=== PATIENT | female | born 1945 | race Caucasian/White ===

== ENCOUNTER 2018-02-25 19:51 | Emergency (ER) | payer MEDICARE ==
[~2018-02-25] VITALS: Ht 160 cm; Wt 50.4 kg
[~2018-02-25 19:51] MED LIST: ALBUTEROL S2.5 MG/.5 IN; ALBUTEROL0.5 % IN; AMLODIPINE5 MG PO; AMOXICILLIN/CL875 MG PO; ANTIVERT12.5 MG PO; AUGMENTIN875TAB PO; BACLOFEN10 MG PO; BL ADULT ASA81 MG OR; BREO ELLIPTA 101 INH PO; CIPRO500 MG PO; CIPROFLOXACN500 MG PO; CLONIDINE0.1 MG OR; DEPO-MEDROL80 MG/ML IM; DOXYCYC MONO100 MG OR; DOXYCYCL HYC100 MG PO; FLEXERIL PO; FLEXERIL5 M1 PO; HYDROCHLOROT12.5 MG PO; HYDROCHLOROTH12.5 M1 PO; HYDROXYZ HCL25 MG PO; LISINOPRIL10 MG PO; LISINOPRIL20 MG; LISINOPRIL20 MG OR; LISINOPRIL40 MG PO; LISINOPRIL5 MG PO; LORTAB 10-325 M1 TAB PO; MEDDOSEPAK OR; MEDDOSEPAK PO; NAPROSYN500 MG PO; NAPROXEN500 MG PO; PHENERGAN12.5 MG/TA PO; PREDNISONE10 MG PO; PREDNISONE50 MG OR; PRIMATENE0.22 MG/A IN; PROAIR HFA IN; ROBITUSSIN AC10 ML PO; SPIRIVA IN; SYMBICORT1 AE1 IN; TORADOL PO; TRIAMCINOLON0.11 EX; TUDORZA PR400 MG/ACT IN; ULTRAM50 MG PO; VENTOLIN HF1 IN; WELLBUTRIN SR150 MG PO
[2018-02-25] MEDS ORDERED: LIPITOR20 M1 PO (20:23)
[2018-02-25] MEDS ORDERED: ALBUTEROL SUL0.083 % IN (20:24)
[2018-02-26] MEDS ORDERED: FLEXERIL PO (02:55)
[2018-02-26] MEDS ORDERED: LORTAB 1010 MG PO (02:55)
[2018-02-26 03:27] VITALS: BP 133/68
== END 2018-02-26 03:38 | disposition home or self-care (01) ==
LOC: ED 19:51
DX: M47.816 Spondylosis without myelopathy or radiculopathy, lumbar region (principal); M54.41 Lumbago with sciatica, right side; I10 Essential (primary) hypertension; I25.10 Atherosclerotic heart disease of native coronary artery without angina pectoris; F41.9 Anxiety disorder, unspecified; J44.9 Chronic obstructive pulmonary disease, unspecified; I25.2 Old myocardial infarction; Z99.81 Dependence on supplemental oxygen

== ENCOUNTER 2018-09-02 11:43 | Observation (INO) | payer MEDICARE ==
[~2018-09-02] VITALS: Ht 160 cm; Wt 51.1 kg
[~2018-09-02 11:43] MED LIST changes: +ALBUTEROL SUL0.083 % IN; +LIPITOR20 M1 PO; +LORTAB 1010 MG PO
[2018-09-02] MEDS ORDERED: ALENDRONATE SOD70 MG PO (11:56)
[2018-09-02 13:16] LABS: ALKALINE PHOSPHATASE 75 u/l (38-126); ANION GAP 15 (6-22 (CALC)); BILIRUBIN, TOTAL 0.8 mg/dL (0.0-1.4); BUN 11 mg/dL (8-23); BUN/CREATININE RATIO 15 (12-20 (CALC)); CARBON DIOXIDE 27 mmol/l (22-30); CHLORIDE 97 mmol/l (95-108); CREATININE 0.7 mg/dL (0.5-1.0); GFR > 60 ML/MIN (>=60 (CALC)); GFR FOR AFR.AMER. > 60 ML/MIN (>=60 (CALC)); POTASSIUM 3.9 mmol/l (3.5-5.1); SGOT/AST 23 u/l (9-36); SODIUM 135 mmol/l (137-146); TOTAL PROTEIN 7.5 g/dL (6.3-8.2)
[2018-09-02 13:29] LABS: IMMATURE GRANULOCYTES 0.6 % (0.0-5.0); MEAN CELL VOLUME 98.1 fL CALC (80.0-100.0); MEAN CORPUSCULAR HGB CONC 32.7 g/L CALC (32.0-36.0); NEUT# 4.34 thou/uL (2.00-7.15); RED BLOOD COUNT 4.15 mill/uL (4.20-5.60); RED CELL DISTRI WIDTH 13.2 % (11.5-15.5)
[2018-09-02 13:30] LABS: HEMATOCRIT 40.7 % (37.0-47.0); HEMOGLOBIN 13.3 g/dl (12.0-16.0)
[2018-09-02] MEDS ORDERED: WELLBUTRIN SR150 MG PO (16:38)
[2018-09-02] MEDS ORDERED: VITAMIN D31000 UNI1 PO (16:40)
[2018-09-02] MEDS ORDERED: POTASSIUM99 MG PO (16:43)
[2018-09-02] MEDS ORDERED: WOMENS MULTI PO (16:44)
[2018-09-02 18:10] VITALS: BP 168/84
[2018-09-02 20:00] VITALS: BP 179/85
[2018-09-03 04:37] VITALS: BP 156/74
[2018-09-03 05:15] LABS: HEMATOCRIT 37.3 % (37.0-47.0); HEMOGLOBIN 12.5 g/dl (12.0-16.0); IMMATURE GRANULOCYTES 0.4 % (0.0-5.0); MEAN CELL VOLUME 96.4 fL CALC (80.0-100.0); MEAN CORPUSCULAR HGB 32.3 pG CALC (26.0-32.0); MEAN CORPUSCULAR HGB CONC 33.5 g/L CALC (32.0-36.0); NEUT# 5.85 thou/uL (2.00-7.15); RED BLOOD COUNT 3.87 mill/uL (4.20-5.60); RED CELL DISTRI WIDTH 13.2 % (11.5-15.5)
[2018-09-03 05:42] LABS: ALBUMIN 4.6 g/dL (3.2-5.0); ALKALINE PHOSPHATASE 72 u/l (38-126); AMYLASE 57 u/l (30-110); ANION GAP 19 (6-22 (CALC)); BILIRUBIN, TOTAL 0.6 mg/dL (0.0-1.4); BUN 15 mg/dL (8-23); BUN/CREATININE RATIO 22 (12-20 (CALC)); CARBON DIOXIDE 22 mmol/l (22-30); CHLORIDE 97 mmol/l (95-108); CREATININE 0.7 mg/dL (0.5-1.0); GFR > 60 ML/MIN (>=60 (CALC)); GFR FOR AFR.AMER. > 60 ML/MIN (>=60 (CALC)); LIPASE 70 u/l (23-300); MAGNESIUM 1.8 mg/dL (1.6-2.3); POTASSIUM 4.3 mmol/l (3.5-5.1); SGOT/AST 19 u/l (9-36); SODIUM 134 mmol/l (137-146); TOTAL PROTEIN 6.6 g/dL (6.3-8.2)
[2018-09-03 07:27] VITALS: BP 177/70
[2018-09-03 07:36] VITALS: BP 177/70
[2018-09-03] MEDS ORDERED: DOXYCYCL HYC100 MG PO (14:36)
[2018-09-03] MEDS ORDERED: MEDDOSEPAK PO (14:36)
[2018-09-03] MEDS ORDERED: ALPRAZOLAM1 MG PO (16:31)
== END 2018-09-03 15:29 | disposition home or self-care (01) ==
LOC: ED 11:43 → ED-I 13:11 → ED 14:28 → MS2 14:29
PROVIDERS: Family Medicine; ADMIT Internal Medicine Nephrology; ATTEND Internal Medicine Nephrology
DX: J44.1 Chronic obstructive pulmonary disease with (acute) exacerbation (principal); I10 Essential (primary) hypertension; I25.10 Atherosclerotic heart disease of native coronary artery without angina pectoris; E78.5 Hyperlipidemia, unspecified; M81.0 Age-related osteoporosis without current pathological fracture; I25.2 Old myocardial infarction; Z99.81 Dependence on supplemental oxygen; Z63.4 Disappearance and death of family member; R06.02 Shortness of breath; R05 Cough

== ENCOUNTER 2019-03-11 11:54 | Emergency (ER) | payer MEDICARE ==
[~2019-03-11] VITALS: Ht 160 cm; Wt 49.1 kg
[~2019-03-11 11:54] MED LIST changes: +ALENDRONATE SOD70 MG PO; +ALPRAZOLAM1 MG PO; +POTASSIUM99 MG PO; +VITAMIN D31000 UNI1 PO; +WOMENS MULTI PO
[2019-03-11] MEDS ORDERED: TRAMADOL HYDROC50 MG PO (13:15)
[2019-03-11 13:22] VITALS: BP 119/65
== END 2019-03-11 13:37 | disposition home or self-care (01) ==
LOC: ED 11:54
DX: M54.6 Pain in thoracic spine (principal); I10 Essential (primary) hypertension; J44.9 Chronic obstructive pulmonary disease, unspecified; I25.10 Atherosclerotic heart disease of native coronary artery without angina pectoris; I25.2 Old myocardial infarction; Z99.81 Dependence on supplemental oxygen

== ENCOUNTER 2019-06-05 18:07 | Observation (INO) | payer MEDICARE ==
[~2019-06-05] VITALS: Ht 160 cm; Wt 47.8 kg
[~2019-06-05 18:07] MED LIST changes: +TRAMADOL HYDROC50 MG PO
[2019-06-05 18:54] LABS: HEMATOCRIT 37.3 % (37.0-47.0); HEMOGLOBIN 12.5 g/dl (12.0-16.0); IMMATURE GRANULOCYTES 0.9 % (0.0-5.0); MEAN CELL VOLUME 97.6 fL CALC (80.0-100.0); MEAN CORPUSCULAR HGB 32.7 pG CALC (26.0-32.0); MEAN CORPUSCULAR HGB CONC 33.5 g/L CALC (32.0-36.0); NEUT# 9.86 thou/uL (2.00-7.15); RED BLOOD COUNT 3.82 mill/uL (4.20-5.60); RED CELL DISTRI WIDTH 14.4 % (11.5-15.5)
[2019-06-05 19:18] LABS: ALBUMIN 4.5 g/dL (3.2-5.0); ALKALINE PHOSPHATASE 80 u/l (38-126); BUN 15 mg/dL (8-23); BUN/CREATININE RATIO 21 (12-20 (CALC)); CHLORIDE 97 mmol/l (95-108); CREATININE 0.7 mg/dL (0.5-1.0); GFR > 60 ML/MIN (>=60 (CALC)); GFR FOR AFR.AMER. > 60 ML/MIN (>=60 (CALC)); POTASSIUM 4.5 mmol/l (3.5-5.1); SGOT/AST 28 u/l (9-36); SODIUM 134 mmol/l (137-146); TOTAL PROTEIN 7.1 g/dL (6.3-8.2)
[2019-06-05 19:28] LABS: D-DIMER 0.59 mg/L (0.19-0.60); PROTHROMBIN TIME 10.2 SECONDS (9.0-12.5)
[2019-06-05 19:30] LABS: MYOGLOBIN 31 ng/mL (0 - 62)
[2019-06-05 19:43] LABS: ANION GAP 19 (6-22 (CALC)); BILIRUBIN, TOTAL 1.2 mg/dL (0.0-1.4); CARBON DIOXIDE 23 mmol/l (22-30)
[2019-06-05 22:00] VITALS: BP 162/95
[2019-06-06 04:16] VITALS: BP 122/74
[2019-06-06 07:20] VITALS: BP 126/62
[2019-06-06 10:23] LABS: URINE BILIRUBIN - DIPSTICK NEGATIVE (NEGATIVE); URINE BLOOD DIPSTICK NEGATIVE (NEGATIVE); URINE CLARITY CLEAR; URINE COLOR YELLOW; URINE GLUCOSE - DIPSTICK 250 mg/dL (NEGATIVE); URINE KETONE TRACE mg/dL (NEGATIVE); URINE LEUK ESTERASE NEGATIVE (Negative); URINE NITRITE - DIPSTICK NEGATIVE (Negative); URINE PH 5.5 (4.5-8.0); URINE PROTEIN - DIPSTICK NEGATIVE (NEG-TRACE); URINE SPECIFIC GRAVITY 1.025; URINE UROBILINOGEN - DIPSTICK 0.2 E.U./dL (0.2)
[2019-06-06 15:25] VITALS: BP 145/68
[2019-06-06 19:33] VITALS: BP 138/77
[2019-06-07 04:45] VITALS: BP 136/81
[2019-06-07 07:08] VITALS: BP 133/68
[2019-06-07 08:52] VITALS: BP 133/68
[2019-06-07] MEDS ORDERED: LEVAQUIN750 MG PO (09:03)
[2019-06-07] MEDS ORDERED: MEDDOSEPAK PO (09:03)
[2019-06-07] MEDS ORDERED: TRAMADOL HCL50 MG PO (09:04)
== END 2019-06-07 09:04 | disposition home or self-care (01) ==
LOC: ED 18:07 → MS2 20:41
PROVIDERS: Family Medicine; ADMIT Internal Medicine; ATTEND Internal Medicine
DX: J18.9 Pneumonia, unspecified organism (principal); J44.0 Chronic obstructive pulmonary disease with (acute) lower respiratory infection; J44.1 Chronic obstructive pulmonary disease with (acute) exacerbation; J96.10 Chronic respiratory failure, unspecified whether with hypoxia or hypercapnia; M94.0 Chondrocostal junction syndrome [Tietze]; I10 Essential (primary) hypertension; I25.10 Atherosclerotic heart disease of native coronary artery without angina pectoris; M80.88XD Other osteoporosis with current pathological fracture, vertebra(e), subsequent encounter for fracture with routine healing; E78.5 Hyperlipidemia, unspecified; F41.9 Anxiety disorder, unspecified; I25.2 Old myocardial infarction; Z99.81 Dependence on supplemental oxygen; Z23 Encounter for immunization; Z87.891 Personal history of nicotine dependence
CPT/HCPCS: G0378; J0131; J1650

== ENCOUNTER 2020-06-13 13:16 | Inpatient (IN) | payer MEDICARE ==
[~2020-06-13] VITALS: Ht 160 cm; Wt 47.0 kg
[~2020-06-13 13:16] MED LIST changes: +LEVAQUIN750 MG PO; +TRAMADOL HCL50 MG PO
--- NOTE | 2020-06-13 13:26 | NUR ---
[facility] LITERS PATIENT OXYGEN DEPENDENT. PATIENT EXPLAINED OF WAIT TIME AND IF CONDITIONS WORSENS PLEASE INFORM US. PATIENT VERBALIZED UNDERSTANDING OF INSTRUCTIONS. MD NOTIFIED
--- NOTE | 2020-06-13 13:45 | NUR ---
PT TO ROOM VIA WC FOR BEDSIDE TRIAGE
[2020-06-13] MEDS ORDERED: SLOW-MAG PO (14:33)
[2020-06-13] MEDS ORDERED: HYDROCHLOROT12.5 MG PO (14:33)
[2020-06-13] MEDS ORDERED: VITAMIN C500 M6 PO (14:34)
[2020-06-13 14:35] LABS: IMMATURE GRANULOCYTES 1.1 % (0.0-5.0); MEAN CELL VOLUME 99.2 fL CALC (80.0-100.0); MEAN CORPUSCULAR HGB 31.9 pG CALC (26.0-32.0); MEAN CORPUSCULAR HGB CONC 32.1 g/dL CAL (32.0-36.0); NEUT# 10.18 thou/uL (2.00-7.15); RED BLOOD COUNT 4.74 mill/uL (4.20-5.60)
--- NOTE | 2020-06-13 14:39 | NUR ---
MEDICATIONS ADMINSTERED PT WITHOUT COMPLAINTS
[2020-06-13 14:46] LABS: HEMOGLOBIN 15.1 g/dl (12.0-16.0)
[2020-06-13 14:49] LABS: ALBUMIN 4.1 g/dL (3.2-5.0); ALKALINE PHOSPHATASE 85 u/l (38-126); ANION GAP 9 (6-22 (CALC)); BILIRUBIN, TOTAL 0.8 mg/dL (0.0-1.4); BUN 21 mg/dL (8-23); BUN/CREATININE RATIO 33 (12-20 (CALC)); CARBON DIOXIDE 33 mmol/l (22-30); CHLORIDE 102 mmol/l (95-108); CREATININE 0.6 mg/dL (0.5-1.0); GFR > 60 ML/MIN (>=60 (CALC)); GFR FOR AFR.AMER. > 60 ML/MIN (>=60 (CALC)); POTASSIUM 4.2 mmol/l (3.5-5.1); SGOT/AST 28 u/l (9-36); TOTAL PROTEIN 6.4 g/dL (6.3-8.2)
[2020-06-13 14:55] LABS: SODIUM 140 mmol/l (137-146)
--- NOTE | 2020-06-13 15:19 | NUR ---
PT HAS WITH EVIDENCE OF ACUTE DISTRESS
--- NOTE | 2020-06-13 16:32 | NUR ---
AWAITING RESULTS WITHOUT DISTRESS
--- NOTE | 2020-06-13 17:50 | NUR ---
PT GIVEN TORADOL FOR RIB PAIN
--- NOTE | 2020-06-13 18:09 | NUR ---
DINNER TRAY GIVEN
--- NOTE | 2020-06-13 18:27 | NUR ---
PATIENT AGREEABLE TO BEING ADMITTED. CURRENTLY EATING DINNER AT THIS TIME
--- NOTE | 2020-06-13 19:01 | NUR ---
VENTOLIN GIVEN AT THIS TIME
--- NOTE | 2020-06-13 20:52 | NUR ---
PT WITHOUT EVIDENCE OF DISTRESS
--- NOTE | 2020-06-13 21:29 | NUR ---
PT RESTING WITHOUT DISTRESS
[2020-06-13 22:30] VITALS: BP 180/87
[2020-06-14] VITALS (8 sets, daily range): BP systolic 101–188; BP diastolic 53–87
--- NOTE | 2020-06-14 07:05 | NUR ---
RECEIVED BEDSIDE REPORT FROM KRISTINE GARCES. PT RESTING IN SEMI FOWLERS, RESPS EVEN AND UNLABORED ON O2 VIA NC, VSS, MONITORS ATTACHED. REPORTS BILAT RIB PAIN 10/10, WILL MEDICATE FOR PAIN. CALL LIGHT WITHIN REACH.
--- NOTE | 2020-06-14 07:20 | NUR ---
MEDICATED WITH TORADOL 30MG IVP FOR C/O 04/08 BILAT RIB PAIN. WILL CONTINUE TO MONITOR.
--- NOTE | 2020-06-14 09:49 | NUR ---
DR ACUÑA AT BEDSIDE, AWAITING NEW ORDERS.
--- NOTE | 2020-06-14 11:56 | NUR ---
PT C/O NAUSEA, PHONE CALL TO CHRISTINA CHAN, AWAITING NEW ORDERS.
--- NOTE | 2020-06-14 12:13 | NUR ---
MEDICATED WITH ZOFRAN 4MG IVP FOR C/O NAUSEA.
--- NOTE | 2020-06-14 15:31 | NUR ---
NURSE TO NURSE REPORT CALLED TO ABDIEL LARSEN.
--- NOTE | 2020-06-14 17:10 | NUR ---
TO MED SURG VIA STRETCHER, TELE MONITOR IN PLACE.
--- NOTE | 2020-06-14 17:16 | NUR ---
PT ARRIVED VIA BED WITH STAFF AND O2
--- NOTE | 2020-06-14 22:18 | NUR ---
1999- PATIENT IN BED C/O PAIN 02/06 TO LEFT RIB/STERNAL AREA, REPORTS CONSTANT THROBBING PAIN, PATIENT REPORTS THAT'S THE REASON FOR COMING TO HOSPITAL. TYLENOL GIVEN PER ORDER, CLARIFIED PAIN MEDICATION ORDER WITH PHARMACY. PATIENT WITH 02, HAS PRODUCTIVE COUGH, SMALL AMOUNT OF WHITE THICK MUCOUS NOTED. PATIENT ON TELEMETRY, CALL LIGHT WITHIN REACH, BED IN LOWEST POSITION, WILL CONTINUE TO MONITOR.
--- NOTE | 2020-06-15 | NUR ---
PATIENT RESTING IN BED AT THIS TIME, NO C/O PAIN, SOB, DIZZINESS AT THIS TIME. PATIENT ASSISTED TO BATHROOM WITH STAFF. CALL LIGHT WITHIN REACH, BED IN LOWEST POSITION.
[2020-06-15 04:03] VITALS: BP 140/75
--- NOTE | 2020-06-15 09:00 | NUR ---
PT SEEN AWAKE, ALERT, ORIENTED X 3. SHE IS SEEN AT REST IN THE BED, NO DISTRESS NOTED. PT DOES BECOME DYSPNEIC WITH MINIMAL EXERTION.
[2020-06-15 10:43] VITALS: BP 191/91
--- NOTE | 2020-06-15 13:00 | NUR ---
PT CONTINUES AT REST IN THE BED, NO DISTRESS. PT SEEN BY DR ACUÑA TODAY, IS AWARE THAT SHE WILL NEED A FEW MORE DAYS HERE.
[2020-06-15 15:36] VITALS: BP 176/83
[2020-06-15 19:25] VITALS: BP 117/70
--- NOTE | 2020-06-15 20:15 | NUR ---
PATIENT RESTING IN BED, PATIENT REPORTS SOME MILD PAIN TO LEFT RIBCAGE AREA, REPORTS PAIN MEDICATION GIVEN EARLIER, PATIENT ON 02, NO C/O SOB. CALL LIGHT WITHIN REACH, BED IN LOWEST POSITION.
[2020-06-16 04:45] VITALS: BP 130/78
[2020-06-16 09:10] VITALS: BP 116/75
--- NOTE | 2020-06-16 09:10 | NUR ---
PT IN SEMI JACOBSEN POSITION; A/O X4; PT C/O MIDSTERNAL PAIN AND BACK PAIN 01/06, MEDICATED ORDERED; O2 2L VIA NC, PT WITH NON PRODUCTIVE COUGH; #[address], NO REDNESS OR EDEMA NOTED, FLUSHES WELL; PT ORIENTED TO ROOM AND CALL SYSTEM; CALL AYALA WITHIN REACH; WILL CONTINUE TO MONITOR.
--- NOTE | 2020-06-16 09:22 | NUR ---
DR. ACUÑA IN TO SEE PT
[2020-06-16] MEDS ORDERED: PREDNISONE10 MG PO (10:31)
[2020-06-16] MEDS ORDERED: Levaquin PO (10:31)
[2020-06-16] MEDS ORDERED: PROTONIX40 M2 PO (14:20)
[2020-06-16] MEDS ORDERED: TRAMADOL HCL50 MG PO (14:20)
--- NOTE | 2020-06-16 15:08 | NUR ---
Discharge instructions given. Patient verbalizes understanding of same. Discharged in stable condition via Wheelchair to Home with family. All belongings sent with pt. INFORMED PT. SCRIPTS FOR PROTONIX AND TRAMADOL SENT IN TO [facility].
== END 2020-06-16 15:08 | disposition home or self-care (01) | DRG 194 ==
LOC: ED 13:16 → ED-I 17:30 → ED 17:44 → MS2 17:45 → ED-I 17:45 → MS2 06-14 15:33
PROVIDERS: Family Medicine; ADMIT Internal Medicine; ATTEND Internal Medicine
DX: J18.9 Pneumonia, unspecified organism (principal); J44.1 Chronic obstructive pulmonary disease with (acute) exacerbation; I25.10 Atherosclerotic heart disease of native coronary artery without angina pectoris; I10 Essential (primary) hypertension; E78.5 Hyperlipidemia, unspecified; F41.9 Anxiety disorder, unspecified; G89.29 Other chronic pain; M54.5 Low back pain; M19.90 Unspecified osteoarthritis, unspecified site; Z20.828 Contact with and (suspected) exposure to other viral communicable diseases; Z99.81 Dependence on supplemental oxygen; Z79.51 Long term (current) use of inhaled steroids; Z79.82 Long term (current) use of aspirin; Z79.899 Other long term (current) drug therapy; Z88.1 Allergy status to other antibiotic agents; Z88.8 Allergy status to other drugs, medicaments and biological substances; Z85.828 Personal history of other malignant neoplasm of skin; I25.2 Old myocardial infarction
CPT/HCPCS: Q9967

== ENCOUNTER 2020-06-24 13:22 | Inpatient (IN) | payer MEDICARE ==
[~2020-06-24] VITALS: Ht 160 cm; Wt 46.7 kg
[~2020-06-24 13:22] MED LIST changes: +Levaquin PO; +PROTONIX40 M2 PO; +SLOW-MAG PO; +VITAMIN C500 M6 PO
--- NOTE | 2020-06-24 13:22 | NUR ---
PT TO ER BED 12 VIA EMS STRETCHER AT THIS TIME.
[2020-06-24 14:01] LABS: HEMATOCRIT 47.1 % (37.0-47.0); IMMATURE GRANULOCYTES 3.5 % (0.0-5.0); MEAN CELL VOLUME 100.4 fL CALC (80.0-100.0); MEAN CORPUSCULAR HGB CONC 31.8 g/dL CAL (32.0-36.0); NEUT# 18.6 thou/uL (2.00-7.15); RED BLOOD COUNT 4.69 mill/uL (4.20-5.60); RED CELL DISTRI WIDTH 13.2 % (11.5-15.5)
[2020-06-24 14:20] LABS: ALBUMIN 4.3 g/dL (3.2-5.0); ALKALINE PHOSPHATASE 61 u/l (38-126); ANION GAP 10 (6-22 (CALC)); BILIRUBIN, TOTAL 0.8 mg/dL (0.0-1.4); BUN 32 mg/dL (8-23); BUN/CREATININE RATIO 42 (12-20 (CALC)); CARBON DIOXIDE 35 mmol/l (22-30); CHLORIDE 97 mmol/l (95-108); CREATININE 0.8 mg/dL (0.5-1.0); GFR > 60 ML/MIN (>=60 (CALC)); GFR FOR AFR.AMER. > 60 ML/MIN (>=60 (CALC)); POTASSIUM 4.2 mmol/l (3.5-5.1); SGOT/AST 38 u/l (9-36); SODIUM 137 mmol/l (137-146); TOTAL PROTEIN 6.6 g/dL (6.3-8.2)
--- NOTE | 2020-06-24 14:30 | NUR ---
RESTING IN HIGH FOWLERS, DENIES NEEDS AT THIS TIME.
--- NOTE | 2020-06-24 16:02 | NUR ---
PT SECOND LACTIC ACID COMPLETED AND MLP NOTIFIED OF RESULTS.
--- NOTE | 2020-06-24 17:30 | NUR ---
IN HIGH FOWLERS, SPO2 96-97% ON O2 AT 3L VIA NC, VSS, MONITORS ATTACHED. DENIES NEEDS AT THIS TIME.
[2020-06-24 17:53] VITALS: BP 133/72
--- NOTE | 2020-06-24 17:53 | NUR ---
female pt to be admitted to ICU (ER overflow/amboard pt) in stable condition; admission assessment completed at this time; pt alert and oriented; denies pain; c/c of worsening sob; pt released from hospital recently; no n/v noted; resp even and unlabored; sob with exertion/ minimal movement; lungs clear/ diminished bases; skin color wnl; o2 per nc at 3L; pt o2 dependent, 3L 24/7 at home; loose psych np cough noted; hr reg; strong pulses; no edema noted; sr/st on monitor; abd soft with bs present; bm noted today per this story writer; pt admits to voiding without complication; urine noted mixed with stool; bsc; #20 ems site flushed and patent to rac; no redness or edema noted at site; plan of care explained; pt informed she will remain in er tonight and agree; pt denies allergy to HCTZ; states she takes HCTZ at home ( order per Dr Chan per pt); allergy removed; call light within reach; will continue to monitor
--- NOTE | 2020-06-24 18:54 | NUR ---
REPORT GIVEN TO MICHELLE GARCES.
[2020-06-24 22:00] VITALS: BP 119/78
[2020-06-25] VITALS (13 sets, daily range): BP systolic 108–166; BP diastolic 58–92
--- NOTE | 2020-06-25 01:53 | NUR ---
PLACED IN HOSPITAL BED.
--- NOTE | 2020-06-25 03:50 | NUR ---
UP TO BSC. C/O RIGHT LATERAL RIB PAIN.
--- NOTE | 2020-06-25 04:13 | NUR ---
PT GETS DYSPNEIC WITH ANY EXERTION. RETURNS TO BASELINE QUICKLY.
--- NOTE | 2020-06-25 06:16 | NUR ---
RESTING QUIETLY. NAD.
--- NOTE | 2020-06-25 06:50 | NUR ---
report received from Ilya Weathers RN
--- NOTE | 2020-06-25 07:45 | NUR ---
pt awake in bed ER 12 (ICU overflow); no apparent distress noted; pt offers no complaints; assessment completed at this time; pt alert and oriented; denies pain; no n/v noted per insurance underwriter sales; resp even and unlabored; exertional sob noted with minimal exertion; lungs coarse upper post/ diminished; skin color wnl; o2 per nc at 3L; human machine interface engineer loose cough noted; hr reg; strong pulses; no edema noted; sr/st with freq pac noted; abd soft with bs present; no bm noted per insurance underwriter sales; pt assisted to bsc; voiding clear yellow urine; #20 ems site flushed and patent to rac; ivf initiated at this time; no redness or edema noted at site; plan of care/ am meds; ER hold explained; breakfast to be provided; call light within reach; will continue to monitor
--- NOTE | 2020-06-25 08:04 | NUR ---
awake in bed eating breakfast; no apparent distress noted; pt offers no complaints; st/ freq pac on monitor; iv intact and patent; no redness or edema noted at site; call light within reach; will continue to monitor
--- NOTE | 2020-06-25 08:35 | NUR ---
Dr Bowers present at bedside to assess pt and discuss plan of care
--- NOTE | 2020-06-25 10:13 | NUR ---
resting in bed with eyes closed; no apparent distress noted; iv intact and patent; call light within reach; will continue to monitor
--- NOTE | 2020-06-25 12:10 | NUR ---
awake in bed; no apparent distress noted; pt offers no complaints; iv intact and patent; no redness or edema noted at site; sr/pac on monitor; o2 per nc at 3L; call light within reach; will continue to monitor
--- NOTE | 2020-06-25 13:50 | NUR ---
awake in bed; assisted to bsc; plan of care for transfer to med surg tele explained; pt agree; st/pac on monitor; o2 per nc; iv intact and patent; call light within reach; will continue to monitor
--- NOTE | 2020-06-25 14:21 | NUR ---
report given to Ilya Campos RN
--- NOTE | 2020-06-25 14:42 | NUR ---
PT OT MED SURG ON TELE PER VO
--- NOTE | 2020-06-25 14:44 | NUR ---
pt transferred to med surg tele 277 via bed accompanied by this magnetic tape typewriter operator and Cleve Carbajal LPN; pt distress noted throughout transfer; tele monitor connected; iv intact and patent; no redness or edema noted at site; o2 per nc at 3L; Ilya Campos RN aware of arrival to floor; call light within reach
--- NOTE | 2020-06-25 15:58 | NUR ---
PT ARRIVES TO ROOM 277 VIA WHEELCHAIR FROM ER, SEEN ALERT AND ORIENTED X 3. LUNGS ARE DIMINISHED THROUGHOUT, USES 3 LPM NC. PT SPEAKS IN SHORT SENTENCES PER BREATHLESSNESS. PT CHOOSES BEDPAN OVER BSC PER LESS ACTIVITY WHEREIN SHE MIGHT GET SOB.
--- NOTE | 2020-06-25 20:47 | NUR ---
RECEIEVED REPORT FOR THIS PT AND IN BED WITH EYES CLOSED. NO S/S OF DISTRESS NOTED. MEDICATIONS GIVEN AND TOLERATED WELL. RESPIRATION IS LABORED ON EXERTION AND ENCOURAGED TO TAKE SLOW DEEP BREATHS. PT IS ALERT ABD ORIENTED 3. CONTINENT OF B/B AND USES BEDPAN/BSC WITH NO COMPLICATIONS. iv FLUIDS RUNNING AT 50ML/HR AND TOLERATING WELL. wILL CONTINUE TO OBSERVE
[2020-06-26] VITALS: BP 120/70
[2020-06-26 04:00] VITALS: BP 134/80
--- NOTE | 2020-06-26 05:37 | NUR ---
PT IN BED WITH EYES CLOSED. NO S/S OF DISTRESS NOTED. MEDICATIONS GIVEN AND TOLERATED WELL. CONTINUES ON ZOSYN ABT THERAPY WITH NO ADVERSE SIDE EFFECTS. CONTINENT OF B/B AND USES BSC WITH NO COMPLICATIONS. CALL LIGHT IS WITHIN REACH. WILL CONTINUE TO OBSERVE
[2020-06-26 06:00] LABS: MEAN CELL VOLUME 102.2 fL CALC (80.0-100.0); MEAN CORPUSCULAR HGB CONC 31.4 g/dL CAL (32.0-36.0); RED BLOOD COUNT 3.62 mill/uL (4.20-5.60); RED CELL DISTRI WIDTH 13.2 % (11.5-15.5)
[2020-06-26 06:03] LABS: HEMOGLOBIN 11.6 g/dl (12.0-16.0)
[2020-06-26 06:24] LABS: ANION GAP 5 (6-22 (CALC)); BUN 20 mg/dL (8-23); BUN/CREATININE RATIO 28 (12-20 (CALC)); CARBON DIOXIDE 35 mmol/l (22-30); CHLORIDE 103 mmol/l (95-108); CREATININE 0.7 mg/dL (0.5-1.0); GFR > 60 ML/MIN (>=60 (CALC)); GFR FOR AFR.AMER. > 60 ML/MIN (>=60 (CALC)); MAGNESIUM 1.9 mg/dL (1.6-2.3); SODIUM 139 mmol/l (137-146)
--- NOTE | 2020-06-26 07:14 | NUR ---
PT note Patient is screened for PT intervention and no needs are identified at this time
[2020-06-26 08:00] VITALS: BP 148/75
--- NOTE | 2020-06-26 09:00 | NUR ---
PT SEEN AWAKE, ALERT, ORIENTED X 3. LUNGS CLEAR, DIMINISHED BASES, 3 LPM. PT PROVIDED TRAMADOL FOR LEFT RIB PAIN. PT BECOMES DASILVA. NO ACUTE DISTRESS NOTED AT THIS TIME.
[2020-06-26 10:36] VITALS: BP 136/77
--- NOTE | 2020-06-26 13:00 | NUR ---
PT SEEN IN CHAIR AT BEDSIDE, NO DISTRESS. PT OFTEN SPEAKS ONE OR TWO WORD ANSWERS PER CONDITION.
[2020-06-26 15:36] VITALS: BP 147/83
--- NOTE | 2020-06-26 17:16 | NUR ---
IV SITE CHANGED OUT PER OLD ONE , PT TOLERATED WELL. PT HOPES TO GO HOME SOON, WAITS FOR TIME WHEN SHE FEELS WELL ENOUGH.
[2020-06-26 19:00] VITALS: BP 157/85
--- NOTE | 2020-06-26 19:10 | NUR ---
REPORT RECEIVED FROM Dayanna MARQUEZ RN, CARE OF PT ASSUMED AT THIS TIME.
--- NOTE | 2020-06-26 20:40 | NUR ---
PT AWAKE, LAYING IN BED, STATES SHE "FEELS TIRED AND IS READY FOR BED", PHYSICAL ASSESMENT COMPLETE. SCHEDULED MEDICATIONS ADMINISTERED. PLAN OF CARE REVIEWED, PT VERBALIZES UNDERSTANDING AND DENIES QUESTIONS. DENIES ANY NEEDS AT THIS TIME WHEN ASKED. CALL AYALA WITHIN REACH, AGREES TO CALL PRN.
[2020-06-27] VITALS (7 sets, daily range): BP systolic 141–186; BP diastolic 65–86
--- NOTE | 2020-06-27 00:07 | NUR ---
PT LAYING IN BED WITH EYES CLOSED, NO APPARENT DISTRESS, APPEARS TO BE SLEEPING COMFORTABLY. RESPIRATIONS REGULAR AND UNLABORED. CALL AYALA REMAINS WITHIN REACH.
--- NOTE | 2020-06-27 04:12 | NUR ---
PT LAYING IN BED WITH EYES CLOSED, NO APPARENT DISTRESS, APPEARS TO BE SLEEPING COMFORTABLY. RESPIRATIONS REGULAR AND UNLABORED. CALL AYALA REMAINS WITHIN REACH.
--- NOTE | 2020-06-27 07:35 | NUR ---
ASSESSMENT IS COMPLETED: IV SITE IS FREE FROM REDNESS OR EDEMA. HR IS REG,PULSES ARE STRONG X4, ABD IS SOFT WITH ACTIV EBS., BREATH SOUNDS ARE CELAR, WHEEZING AND DIMINISHED. O2 @ 3LITERS WITH NC. TELE MONITOR #[id number]
--- NOTE | 2020-06-27 11:09 | NUR ---
PT IS RELAXING IN BED WITH NO DISTRESS NOTED.
--- NOTE | 2020-06-27 12:50 | NUR ---
PT IS RELAXING IN BED WITH NO DISTRESS NTOED. IV SITE IS FREE FROM REDNESS OR EDEMA.
--- NOTE | 2020-06-27 15:36 | NUR ---
INFORMED OF BP BEING 186/86. WAS RECHECKED NOW 200/101.AFTER USING THE BSC
--- NOTE | 2020-06-27 18:40 | NUR ---
PT IS RELAXING IN BED WITH NO DISTRESS NOTED.
--- NOTE | 2020-06-27 20:14 | NUR ---
PT ASSESSMENT COMPLETED AT THIS TIME AND MEDICATIONS ADMINISTERED ORDERS PROVIDE. ASSISTED PT TO BSC AND BACK TO BED. PT TOLERATED WELL. NO S/O DISTRESS NOTED AT THIS TIME. CALL LIGHT LEFT WITHIN REACH.
[2020-06-28] VITALS (7 sets, daily range): BP systolic 122–165; BP diastolic 51–84
--- NOTE | 2020-06-28 00:09 | NUR ---
ANTIBIOTIC THERAPY ADMINISTERED AT THIS TIME. PT WAS SLEEPING, BUT AWOKE TO MY VOICE. LIGHTS AND TV ARE ON AT THIS TIME. PT DENIES ANY OTHER NEEDS, CALL LIGHT AT SIDE.
--- NOTE | 2020-06-28 03:53 | NUR ---
IVF REPLENISHED AT THIS TIME. PT IS SLEEPING, NO S/O DISTRESS NOTED.
--- NOTE | 2020-06-28 04:50 | NUR ---
PT MEDICATED ORDERS PROVIDE. V/S ASSESSED ALSO AT THIS TIME. PT DENIES ANY OTHER NEEDS.
--- NOTE | 2020-06-28 07:40 | NUR ---
ASSESSMENT IS COMPLETED: IV SITE IS FREE FROM REDNESS OR EDEMA. HR IS REG,PULSES ARE STRONG X4, ABD IS SOFT WITH ACTIVE BS. BREATH SOUNDS ARE WHEEZING AND DIMINISHED TELE MONITOR IN PLACE.
--- NOTE | 2020-06-28 12:40 | NUR ---
PT IS RELAXING IN BED WITH NO DISTRESS NOTED. IV SITE IS FREE FROM REDNESS OR EDEMA.
--- NOTE | 2020-06-28 16:00 | NUR ---
PT IS RELAXING IN BED WITH NO DISTRESS NOTED. PHYSICAL THERAPY IN TO VISIT WITH PT.
--- NOTE | 2020-06-28 21:00 | NUR ---
PATIENT RESTING IN BED AT THIS TIME-AWAKE ALERT AND ORIENTEDX3 WITH O2 VIANASAL CANNULA IN PLACE. PATIENT STATES THAT SHE ALREADY HAS O2 SET UP AT HOME AND WEARS IT MOST OF THE TIME. TELE MONITOR IN PLACE. IVF PATENT AND INFUSING VIA RIGHT FOREARM SITE ORDERED. PATIENT WITH OCC PRODUCTIVE COUGH WITH YELLOW SECREATIONS PER PATIENT. PATIENT MEDICATED FOR PAIN WITH ULTRAM 50MG PER PATIENT REQUEST. SAFETY PRECAUTIONS REINFORCED. CALL LIGHT IN REACH. WILL CONT TO MONITOR.
--- NOTE | 2020-06-29 01:00 | NUR ---
PATIENT RESTING IN BED WITH HOB ELEVATED AND EYES CLOSED. O2 VIA NASAL CANNULA IN PLACE. RESP ARE EVEN AND UNLABORED. IVF PATENT AND INFUSING VIA RIGHT FOREARM SITE. TELE MONITOR IN PLACE. CALL LIGHT IN REACH. WILL CONT TO MONITOR.
--- NOTE | 2020-06-29 04:00 | NUR ---
PATIENT RESTING IN BED WITH O2 VIA NASAL CANNULA IN PLACE. PATIENT APPEARS SLEEPING AT THIS TIME WITH EYES CLOSED. RESPS ARE EVEN AND UNLABORED. IVF PATENT AND INFUSING VIA RIGHT FOREARM ORDERED. TELE MONITOR IN PLACE. CALL LIGHT IN REACH. WILL CONT TO MONITOR.
--- NOTE | 2020-06-29 07:05 | NUR ---
REPORT RECEIVED FROM MILI PENDLETON.
[2020-06-29 08:50] VITALS: BP 154/86
--- NOTE | 2020-06-29 08:50 | NUR ---
PT RESTING IN SEMI FOWLERS POSITION,A&O X3;VS OBTAINED AND ASSESSMENT COMPLETED;PT DENIES ANY CURRENT PAIN,PAIN SCALE AND REPORTING EDUCATED;RESPIRATIONS SHALLOW ON O2 @ 3L VIA NC, PT IS HOME OXYGEN DEPENDENT ON 3L;NON-PRODUCTIVE COUGH;ABDOMEN SOFT ON PALPATION AND ACTIVE IN ALL 4 QUADRANTS;WEAK PEDAL PULSES;SKIN INTACT;TELE MONITORING IN PLACE;#20G TO RFA INFUSING NS WITH EASE PER ORDER;PT REPORTS ANXIETY REGARDING DISCHARGE HOME, PT REASSURED;PT OFFERED PRN ANXIETY MEDICATION AND DECLINES AT THIS TIME;PT DENIES ANY ADDITIONAL NEEDS;ENCOURAGED TO CALL FOR ASSISTANCE IF NEEDED;FALL PRECAUTIONS IN PLACE WITH BED IN THE LOWEST POSITION AND CALL LIGHT IN REACH;WILL CONTINUE TO MONITOR
--- NOTE | 2020-06-29 09:05 | NUR ---
CALL RECIEVED FROM BENITA ER TOOL RENTAL TECHNICIAN REPORTING POSSIBLE AFIB ON PATIENT MONITOR;PT ASYMPTOMATIC;TELE STRIP FAXED TO FLOOR AND PROVIDED TO ALEXA GUALLPA WHO REPORTS THAT STRIP IS NOT SHOWING AFIB;NO NEW ORDERS RECEIVED AT THIS TIME.
--- NOTE | 2020-06-29 09:09 | NUR ---
AT BEDSIDE DISCUSSING POC WITH PT.
[2020-06-29 10:28] VITALS: BP 142/79
--- NOTE | 2020-06-29 10:44 | NUR ---
RT AT BEDSIDE ADMINISTERING BREATHING TX.
[2020-06-29] MEDS ORDERED: PREDNISONE10 MG PO (10:48)
[2020-06-29] MEDS ORDERED: XANAX0.25 MG PO (10:48)
[2020-06-29] MEDS ORDERED: LEXAPRO10 MG PO (10:48)
--- NOTE | 2020-06-29 11:35 | NUR ---
PT RESTING IN SEMI FOWLERS POSITION;RESPIRATIONS EVEN AND UNLABORED ON O2 @ 3L VIA NC;PT DENIES ANY CURRENT PAIN OR DISCOMFORTS;TELE MONITORING IN PLACE;IV SITE PATENT AND ABX STARTED AT THIS TIME;PT VERBALIZES UNDERSTANDING OF PLANS TO D/C HOME AND DENIES ANY QUESTIONS OR NEEDS;ENCOURAGED TO CALL FOR ASSISTANCE IF NEEDED;FALL PRECAUTIONS IN PLACE WITH CALL LIGHT IN REACH;WILL CONTINUE TO MONITOR
--- NOTE | 2020-06-29 12:20 | NUR ---
PT MEDICATED WITH PRN XANAX 1MG PO AT THIS TIME PER REQUEST.
--- NOTE | 2020-06-29 13:10 | NUR ---
ALL DISCHARGE INSTRUCTIONS PROVIDED AT THIS TIME;PT INSTRUCTED TO F/U WITH PCP, TAKE XANAX AND TRAMADOL NEEDED;PT,HOME HEALTH AND MAINFRAME ARCHITECT TO FOLLOW, AND COMPLETE ABX;PT VERBALIZES UNDERSTANDING AND DENIES ANY ADDITIONAL NEEDS OR QUESTIONS;IV SITE REMOVED WITH CATHETER INTACT AND TELE MONITORING D/C;RX FOR LEXAPRO,XANAX AND PREDNISONE PROVIDED;WHEELCHAIR TO BE PROVIDED FOR D/C HOME;[facility] TO TRANSPORT PT HOME.
--- NOTE | 2020-06-29 13:21 | NUR ---
Discharge instructions given. Patient verbalizes understanding of same. Discharged in STABLE condition via Wheelchair to Home with family. All belongings sent with pt. PT TRANSPORTED TO [facility] IN STABLE [place] VIA WHEELCHAIR ACCOMPANIED BY ELIZABETH BOJORQUEZ;ALL BELONGINGS LEFT WITH PT INCLUDING RX FOR XANAX,LEXAPRO AND PREDNISONE;PT DISCHARGE ON HER HOME O2.[facility] TO TRANSPORT PT HOME.
== END 2020-06-29 13:21 | disposition home health service (06) | DRG 193 ==
LOC: ED 13:22 → ED-I 14:41 → ED 14:41 → MS2 16:50 → ED-I 16:50 → ED 17:05 → MS2 06-25 13:14
PROVIDERS: Nurse Practitioner; ADMIT Internal Medicine; ATTEND Internal Medicine
DX: J18.9 Pneumonia, unspecified organism (principal); J96.21 Acute and chronic respiratory failure with hypoxia; J43.9 Emphysema, unspecified; I10 Essential (primary) hypertension; E78.5 Hyperlipidemia, unspecified; I25.10 Atherosclerotic heart disease of native coronary artery without angina pectoris; F41.9 Anxiety disorder, unspecified; I25.2 Old myocardial infarction; Z87.891 Personal history of nicotine dependence; Z99.81 Dependence on supplemental oxygen; Z20.828 Contact with and (suspected) exposure to other viral communicable diseases
CPT/HCPCS: J1650

== ENCOUNTER 2021-05-20 11:59 | Inpatient (IN) | payer MEDICARE ==
[~2021-05-20] VITALS: Ht 160 cm; Wt 49.0 kg
[2021-05-20] VITALS (9 sets, daily range): BP systolic 135–183; BP diastolic 71–112
[~2021-05-20 11:59] MED LIST changes: +LEXAPRO10 MG PO; +XANAX0.25 MG PO
--- NOTE | 2021-05-20 12:00 | NUR ---
PATIENT TO ROOM VIA EMS STRETCHER.
[2021-05-20 12:55] LABS: HEMATOCRIT 43.4 % (37.0-47.0); HEMOGLOBIN 13.3 g/dl (12.0-16.0); IMMATURE GRANULOCYTES 0.7 % (0.0-5.0); MEAN CELL VOLUME 102.6 fL CALC (80.0-100.0); MEAN CORPUSCULAR HGB 31.4 pG CALC (26.0-32.0); MEAN CORPUSCULAR HGB CONC 30.6 g/dL CAL (32.0-36.0); NEUT# 11.62 thou/uL (2.00-7.15); RED BLOOD COUNT 4.23 mill/uL (4.20-5.60)
--- NOTE | 2021-05-20 13:00 | NUR ---
PATIENT SITTING UP IN BED ON BIPAP. DISTRESS IS LOWERED FROM ARRIVAL. DECLINES FURTHER NEEDS AT THIS TIME.
[2021-05-20 13:11] LABS: ALBUMIN 4.4 g/dL (3.2-5.0); ALKALINE PHOSPHATASE 56 u/l (38-126); BILIRUBIN, TOTAL 0.6 mg/dL (0.0-1.4); BUN 20 mg/dL (8-23); BUN/CREATININE RATIO 30 (12-20 (CALC)); CHLORIDE 100 mmol/l (95-108); CREATININE 0.7 mg/dL (0.5-1.0); GFR > 60 ML/MIN (>=60 (CALC)); GFR FOR AFR.AMER. > 60 ML/MIN (>=60 (CALC)); POTASSIUM 3.9 mmol/l (3.5-5.1); SGOT/AST 40 u/l (9-36); SODIUM 142 mmol/l (137-146); TOTAL PROTEIN 7.1 g/dL (6.3-8.2)
[2021-05-20 13:12] LABS: ANION GAP 9 (6-22 (CALC)); CARBON DIOXIDE 37 mmol/l (22-30)
[2021-05-20] MEDS ORDERED: DOXYCYCL HYC100 MG PO (13:50)
[2021-05-20] MEDS ORDERED: FAMOTIDINE20 M1 PO (13:51)
[2021-05-20] MEDS ORDERED: PREDNISONE20 MG PO (13:51)
[2021-05-20] MEDS ORDERED: TRELEGY ELLIPTA1 AER IN (13:52)
[2021-05-20] MEDS ORDERED: ISORDIL TITRADOS5 MG PO (13:52)
[2021-05-20] MEDS ORDERED: LIPITOR20 M1 PO (13:53)
--- NOTE | 2021-05-20 14:00 | NUR ---
PATIENT ON BIPAP SITTING UP IN BED WITH DAUGHTER AT BEDSIDE. NO DISTRESS AT THIS TIME. NO FURTHER NEEDS.
--- NOTE | 2021-05-20 14:41 | NUR ---
PT IS RESTING ON BIPAP OF 16/8 AND 40%. VITAL SIGN WITHIN NORMAL LIMITS. PT STATES THAT SHE IS BREATHING EASIER SINCE STARTED ON BIPAP. BACK TO BACK DUONEB TREATMENTS GIVEN PER DR. OLIVERA ORDER IN THE ER. EDUCATED PATIENT ON MEDICATION WELL RE-EDUCATED ABOUT BIPAP. AWAITING TRANSFER TO ICU FOR FURTHER MONITORING AND CARE. HR 79, RR 20, SATS 100% ON CURRENT SETTINGS.
--- NOTE | 2021-05-20 14:43 | NUR ---
report received from DI Rodriguez RN
--- NOTE | 2021-05-20 15:00 | NUR ---
PATIENT TOILETED TO BEDSIDE COMMODE. TOLERATED WELL. RESETTLED INTO BED. CONNECTED TO MONITOR AND DAUGHTER AT BEDSIDE.
--- NOTE | 2021-05-20 15:30 | NUR ---
PATIENT ESCORTED ON MONITOR AND BIPAP WITH RT AND DAUGHTER AT BEDSIDE TO ICU. BEDSIDE HAND OFF PROVIDED TO DAWNA. PATIENT ALERT AND ORIENTED, NO ACUTE DISTRESS.
[2021-05-20 15:35] LABS: URINE BILIRUBIN - DIPSTICK NEGATIVE (NEGATIVE); URINE BLOOD DIPSTICK NEGATIVE (NEGATIVE); URINE COLOR YELLOW; URINE GLUCOSE - DIPSTICK NEGATIVE (NEGATIVE); URINE KETONE NEGATIVE (NEGATIVE); URINE LEUK ESTERASE NEGATIVE (NEGATIVE); URINE PROTEIN - DIPSTICK NEGATIVE (NEG-TRACE); URINE SPECIFIC GRAVITY >=1.030; URINE UROBILINOGEN - DIPSTICK 0.2 E.U./dL (0.2)
[2021-05-20 15:36] LABS: URINE NITRITE - DIPSTICK NEGATIVE (Negative)
--- NOTE | 2021-05-20 15:56 | NUR ---
female pt received to ICU bed 1 via stretcher accompanied by MILI Rodriguez and RT Jhonny in stable condition; pt able to transfer self from bed to bed; admission assessment completed at this time; pt alert and oriented; denies pain; no n/v noted; c/c of increased sob starting 05/19/21 and wrosening this am; Hx of copd with home o2 dependency; resp even and unlabored; lungs coarse throughout with wheezing noted; skin color wnl; bipap intact with settings of 16/8, rate 20 40% FiO2; bipap removed for water as per request; o2 sat maintained at 100%; reapplied; hr reg; strong pulses; no edema noted; sr on monitor; abd soft with bs present; no bm noted per screenplay writer; #20 ems site intact to lh; #20 intact to rac; saline locked; no redness or edema noted at site; home meds reviewed and updated with pt and daughter Mirella; pt admits to Isosobride being stopped 05/14/21; plan of care/ meds explained; call light within reach; will continue to monitor
--- NOTE | 2021-05-20 16:11 | NUR ---
PT TRANSPORTED ON BIPAP FROM ER TO ICU. PT ON MONITOR AND BIPAP SETTINGS REMAINED AT 16/8 40% DURING THE TRANSPORT. PT TOLERATED TRANSPORT WELL, WITHOUT ANY INCIDENT. HR 77, RR 21, SPO2 100% DURING TRANSPORT. RT TO CONTINUE MONITORONG AND CARE OF PATIENT WITH LINING STITCHER STAFF. TRANSPORT TIME WAS 15 MINUTES.
[2021-05-20] MEDS ORDERED: VENTOLIN HFA IN (16:22)
[2021-05-20] MEDS ORDERED: XANAX0.25 MG PO (17:47)
--- NOTE | 2021-05-20 17:49 | NUR ---
pt converted to 10L hi flow nc at this time for dinner; pt request anxiety med; Dr Scott notified; orders received; fan provided as per request
--- NOTE | 2021-05-20 18:00 | NUR ---
pt awake in bed eating dinner; no apparent distress noted; sr on monitor; o2 per nc; call light within reach
--- NOTE | 2021-05-20 18:29 | NUR ---
bipap placed/settings resumed
--- NOTE | 2021-05-20 19:45 | NUR ---
RESTING IN BED ON ROUNDS. ALERT AND ORIENTED ON BIPAP 16/8, RATE 20, FIO2 DECREASED TO 30% BY RT. O2 SAT 97-100% RESP NON-LABORED AT REST. BREATH SOUNDS COARSE WITH WHEEZING. ASSISTED PATIENT UP TO BSC, VOIDED AND HAD LARGE FORMED BM. BACK TO BED. O2 SAT REMAINED IN THE UPPER 90'S WITH ACTIVITY. DYSPNEIC WITH EXERTION. DC'D EMS SALIN ELOCK D/T PATIENT C/O IT HURTING HER. SALINE LOCK REMAINS INTACT IN RAC. SR ON MONITOR. DISCUSSED PLAN OF CARE. DENIES NEEDS AT THIS TIME. CALL AYALA IN REACH.
--- NOTE | 2021-05-20 22:00 | NUR ---
RESTING WITH EYES CLOSED. VSS.
[2021-05-21] VITALS (18 sets, daily range): BP systolic 140–198; BP diastolic 72–95
--- NOTE | 2021-05-21 | NUR ---
AWAKE, ASSISTED UP TO BSC TO VOID. VSS. SR ON MONITOR. BIPAP SETTINGS UNCHANGED. DYSPNEIC WITH EXERTION, O2 SAT MAINTAINED GREATER THAN 90% WHEN UP.
--- NOTE | 2021-05-21 04:40 | NUR ---
RISK MANAGEMENT DIRECTOR HERE FOR MORNING LAB DRAW.
[2021-05-21 04:58] LABS: HEMATOCRIT 42.2 % (37.0-47.0); HEMOGLOBIN 13.3 g/dl (12.0-16.0); IMMATURE GRANULOCYTES 0.5 % (0.0-5.0); MEAN CELL VOLUME 99.3 fL CALC (80.0-100.0); MEAN CORPUSCULAR HGB 31.3 pG CALC (26.0-32.0); MEAN CORPUSCULAR HGB CONC 31.5 g/dL CAL (32.0-36.0); NEUT# 8.39 thou/uL (2.00-7.15); RED BLOOD COUNT 4.25 mill/uL (4.20-5.60); RED CELL DISTRI WIDTH 13.9 % (11.5-15.5)
[2021-05-21 05:15] LABS: ALBUMIN 4.3 g/dL (3.2-5.0); ALKALINE PHOSPHATASE 57 u/l (38-126); ANION GAP 12 (6-22 (CALC)); BILIRUBIN, TOTAL 0.6 mg/dL (0.0-1.4); BUN 24 mg/dL (8-23); BUN/CREATININE RATIO 41 (12-20 (CALC)); CARBON DIOXIDE 31 mmol/l (22-30); CHLORIDE 102 mmol/l (95-108); CREATININE 0.6 mg/dL (0.5-1.0); GFR > 60 ML/MIN (>=60 (CALC)); GFR FOR AFR.AMER. > 60 ML/MIN (>=60 (CALC)); POTASSIUM 4.5 mmol/l (3.5-5.1); SGOT/AST 23 u/l (9-36); SODIUM 140 mmol/l (137-146); TOTAL PROTEIN 6.5 g/dL (6.3-8.2)
--- NOTE | 2021-05-21 05:45 | NUR ---
MEDICATED WITH XANAX FOR ANXIETY ORDERED. NO CHANGES TO REPORT. VSS. PAITENT TOLERATING BIPAP WELL. VSS. SR ON MONITOR.
--- NOTE | 2021-05-21 07:07 | NUR ---
RT AT BEDSIDE FOR BREATHING TREATMENT PER EMAR, BIPAP OFF, ATTEMPTING NC
--- NOTE | 2021-05-21 07:10 | NUR ---
BIPAP STANDBY. PLACED ON 6L HFNC.
--- NOTE | 2021-05-21 07:26 | NUR ---
PT SITTING UP IN BED EATING BREAKFAST, ON 6L NC, TOLERATING WELL.
--- NOTE | 2021-05-21 09:14 | NUR ---
UPDATED PT SON VIA TELEPHONE AFTER HE PROVIDED PT CODE.
--- NOTE | 2021-05-21 09:33 | NUR ---
MD AT BEDSIDE ROUNDING
--- NOTE | 2021-05-21 11:23 | NUR ---
ASSISTED PT TO BSC, AND BACK TO BED WITH STANDBY ASSIST, PT NOW SITTING UP IN BED EATING LUNCH.
--- NOTE | 2021-05-21 11:50 | NUR ---
UPDATED DAUGHTER VIA TELEPHONE AFTER SHE PROVIDED PT PRIVACY CODE.
--- NOTE | 2021-05-21 13:18 | NUR ---
DAUGHTER AT BEDSIDE VISITING. BROUGHT PT CELL PHONE AND AUTO TRANSMISSION TECHNICIAN TO BEDSIDE.
--- NOTE | 2021-05-21 13:37 | NUR ---
NOTIFIED MD OF INCREASING BP
--- NOTE | 2021-05-21 15:16 | NUR ---
RT AT BEDSIDE PROVIDING BREATHING TREATMENT
--- NOTE | 2021-05-21 19:00 | NUR ---
REPORT RECEIVED FROM Awais GREGG RN. CARE OF PT ASSUMED AT THIS TIME.
--- NOTE | 2021-05-21 19:10 | NUR ---
SPOKE WITH DR. LANGSTON REGARDING PT'S CONTINUED TACHYCARDIA AND HTN AND ABOUT RESUMING HOME BETABLOCKER. ALSO ENDORSED PT'S REQUEST FOR TRAMADOL FOR BACK DISCOMFORT. ORDERS RECEIVED VIA CPOE.
[2021-05-21] MEDS ORDERED: LOPRESSOR25 M1 PO (19:13)
[2021-05-21] MEDS ORDERED: ISOSORBIDE MONO30 MG PO (19:14)
--- NOTE | 2021-05-21 20:23 | NUR ---
MEDICINE ADMINISTRATION. PT SITS UP TO TAKE MEDICATION. BIPAP REMOVED AND NC AT 2L/M PLACED. PT TOLERATES PILLS WHOLE, ONE AT A TIME WITH BREAKS INBETWEEN. PT DECLINES ISOSRBIDE. STATES DR. ACUÑA DISCONTINUED FRIDAY. ISOSORBIDE HELD. RX CONSULT FOR MED REC VERIFICATION ORDERED.
--- NOTE | 2021-05-21 23:00 | NUR ---
PT APPEARS TO BE SLEEPING COMFORTABLY. BIPAP ON. RESPIRATIONS REGULAR AND UNLABORED. NO APPARENT DISTRESS. CALL AYALA REMAINS WITHIN REACH.
--- NOTE | 2021-05-21 23:41 | NUR ---
PT CALLS, C/O NEBULIZER TX COMPLETED AND STILL ATTATCHED TO BIPAP AND IS TO NOISY FOR HER TO SLEEP. NEB IS COMPLETE. NEB DETTATCHED FROM BIPAP. Carolyn ELMORE RUFFLER MADE AWARE.
[2021-05-22] VITALS (18 sets, daily range): BP systolic 100–194; BP diastolic 52–101
--- NOTE | 2021-05-22 02:15 | NUR ---
BIPAP REMOVED AND NASAL CANNULA WITH 2L/MIN 02 REAPPLIED PER PT'S REQUEST. SPO2 REMAINS 91-93%. WASH BASIN WITH WARM WATER AND WASH CLOTHS PROVIDED PER PT'S REQUEST.
--- NOTE | 2021-05-22 02:27 | NUR ---
Carolyn ELMORE SUPERVISOR PLATE PASTING VERBALLY MADE AWARE OF CHANGES FROM BIPAP TO NASAL CANNULA.
--- NOTE | 2021-05-22 02:30 | NUR ---
pt is off Bipap
--- NOTE | 2021-05-22 04:16 | NUR ---
PT APPEARS TO BE SLEEPING COMFORTABLY. BIPAP ON. RESPIRATIONS REGULAR AND UNLABORED. NO APPARENT DISTRESS. CALL AYALA REMAINS WITHIN REACH.
--- NOTE | 2021-05-22 04:24 | NUR ---
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
[2021-05-22 04:44] LABS: HEMATOCRIT 38.8 % (37.0-47.0); HEMOGLOBIN 12.2 g/dl (12.0-16.0); MEAN CORPUSCULAR HGB 31.4 pG CALC (26.0-32.0); MEAN CORPUSCULAR HGB CONC 31.4 g/dL CAL (32.0-36.0); RED BLOOD COUNT 3.88 mill/uL (4.20-5.60)
[2021-05-22 05:00] LABS: ANION GAP 10 (6-22 (CALC)); BUN 31 mg/dL (8-23); BUN/CREATININE RATIO 53 (12-20 (CALC)); CARBON DIOXIDE 32 mmol/l (22-30); CHLORIDE 102 mmol/l (95-108); CREATININE 0.6 mg/dL (0.5-1.0); GFR > 60 ML/MIN (>=60 (CALC)); GFR FOR AFR.AMER. > 60 ML/MIN (>=60 (CALC)); MAGNESIUM 2.1 mg/dL (1.6-2.3); POTASSIUM 4.8 mmol/l (3.5-5.1); SODIUM 139 mmol/l (137-146)
--- NOTE | 2021-05-22 07:05 | NUR ---
ASSUMED CARE OF PT FROM Awais BARR RN. PT SITTING UP IN BED A AND O X3. RT AT BEDSIDE FOR BREATHING TREATMENT, PT DENIES ANY PAIN OR NEEDS AT THIS TIME, MEDICATION GIVEN PER EMAR.
--- NOTE | 2021-05-22 09:40 | NUR ---
md at bedside rounding
--- NOTE | 2021-05-22 09:50 | NUR ---
PT ESCORTED DOWN VIA WHEELCHAIR TO RADIOLOGY FOR CT
--- NOTE | 2021-05-22 10:25 | NUR ---
PT BACK IN ROOM FROM RADIOLOGY, PT OOB TO RECLINER. DENIES NEEDS AT THIS TIME
[2021-05-22] MEDS ORDERED: ISORDIL TITRADOS5 MG PO (10:46)
[2021-05-22] MEDS ORDERED: LIPITOR40 M1 PO (10:48)
--- NOTE | 2021-05-22 12:18 | NUR ---
PT BACK TO BED AFTER EATING LUNCH. DENIES NEEDS.
--- NOTE | 2021-05-22 13:04 | NUR ---
VISTOR AT BEDSIDE
--- NOTE | 2021-05-22 15:30 | NUR ---
PT RESTING WITH EYES CLOSED, NO S/S OF DISTRESS NOTED
--- NOTE | 2021-05-22 18:02 | NUR ---
PT SITTING UP EATING DINNER, DENIES NEEDS
--- NOTE | 2021-05-22 19:00 | NUR ---
Received report from Maria C GARCES.
--- NOTE | 2021-05-22 20:00 | NUR ---
Patient is awake, alert and oriented x3, able to make needs known. Respirations labored on 2L N/C. HR reg. On cardia monitor. No complaints of pain reported. VAD #20 RAC patent with dressing CDI. Patient's skill is very dry. Assessment completed and charted. Patient was moved to the ED for observation. ICU closed at this time. Patient will return to ICU in the a.m. Currently in room 9 in the E.D. Bed in low position. Call light within reach. Fall precautions enforced.
--- NOTE | 2021-05-22 21:30 | NUR ---
Patient's oxygen saturations dropped to 81%. Upon entering room, awoke patient and had her take a deep breath. Oxygen saturations returned to 96% instantly. Patient is not in any acute distress. Resting quietly. No complaints. Isordil and sonata given as ordered and requested. Bed in low position. Call light within reach.
--- NOTE | 2021-05-22 23:00 | NUR ---
Patient resting quietly. Respirations even. Maintaining oxygen saturation in the mid90's. No acute distress observed or verbalized. VSS. Bed in low position. Call light within reach.
[2021-05-23] VITALS (14 sets, daily range): BP systolic 115–173; BP diastolic 58–87
--- NOTE | 2021-05-23 00:17 | NUR ---
Solumedrol IV given. Tolerated well. No complaints. Respirations even and unlabored at this time. Bed in low position. Call light within reach.
--- NOTE | 2021-05-23 02:02 | NUR ---
Patient continues to maintain oxygenation in the mid90's. No acute distress observed. Currently resting with eyes closed. Respirtions even. Bed in low position. Call light within reach.
[2021-05-23 03:54] LABS: HEMATOCRIT 36.6 % (37.0-47.0); HEMOGLOBIN 11.3 g/dl (12.0-16.0); MEAN CELL VOLUME 102.2 fL CALC (80.0-100.0); MEAN CORPUSCULAR HGB 31.6 pG CALC (26.0-32.0); MEAN CORPUSCULAR HGB CONC 30.9 g/dL CAL (32.0-36.0); RED BLOOD COUNT 3.58 mill/uL (4.20-5.60); RED CELL DISTRI WIDTH 14.3 % (11.5-15.5)
--- NOTE | 2021-05-23 03:56 | NUR ---
Unable to obtain early evening telemetry readings/strips d/t E.D. monitor limitations. All sport checks this evening, SR/ST was observed only, no arrhythmias noted.
[2021-05-23 04:05] LABS: ANION GAP 7 (6-22 (CALC)); BUN 37 mg/dL (8-23); BUN/CREATININE RATIO 51 (12-20 (CALC)); CARBON DIOXIDE 36 mmol/l (22-30); CHLORIDE 103 mmol/l (95-108); CREATININE 0.7 mg/dL (0.5-1.0); GFR > 60 ML/MIN (>=60 (CALC)); GFR FOR AFR.AMER. > 60 ML/MIN (>=60 (CALC)); MAGNESIUM 2.3 mg/dL (1.6-2.3); POTASSIUM 4.6 mmol/l (3.5-5.1); SODIUM 141 mmol/l (137-146)
--- NOTE | 2021-05-23 04:17 | NUR ---
Patient awake and cheerful. Oxygen saturation high 88-89%. Oxygen increased from 2L to 3L N/C. No acute distress observed. Bed in low position. Call light within reach.
--- NOTE | 2021-05-23 06:33 | NUR ---
NEB TX COMPLETING FROM RT. O2 DECREASED TO 2L N/C. NO ACUTE DISTRESS OBSERVED.
--- NOTE | 2021-05-23 06:58 | NUR ---
Report given to Julio RN. Patient being transported back to ICU by Julio and Elizabeth RNs. Patient stable.
--- NOTE | 2021-05-23 07:12 | NUR ---
TRANSFERRED FROM ER TO ICU 1.
--- NOTE | 2021-05-23 07:17 | NUR ---
UP TO BEDSIDE COMMODE WITHOUT ASSIST. TOLERATED WELL.
--- NOTE | 2021-05-23 07:26 | NUR ---
SITTING UP IN BED HAVING BREAKFAST AT THIS TIME.
--- NOTE | 2021-05-23 08:08 | NUR ---
TAKES MEDS WHOLE WITHOUT DIFFICULTY. REQUEST PRN IRVING.
--- NOTE | 2021-05-23 08:33 | NUR ---
ABOUT 25% OF BREAKFAST CONSUMED.
--- NOTE | 2021-05-23 09:30 | NUR ---
DR LANGSTON IN TO SEE PT.
--- NOTE | 2021-05-23 09:47 | NUR ---
RECIEVED ORDERS TO TRANSFER PT. AWAITING BED ASSIGNMENT.
--- NOTE | 2021-05-23 09:55 | NUR ---
TELEPHONE REPORT GIVEN TO SHANTA GARCES.
--- NOTE | 2021-05-23 10:38 | NUR ---
TRANSPORTED VIA WHEELCHAIR SAFELY OFF OF UNIT.
--- NOTE | 2021-05-23 10:43 | NUR ---
REPORT RECEIVED FROM YENNIFER IN ICU, PT ARRIVED ON UNIT @ 1030 TRANSPORTED BY ICU STAFF. ALERT AND ORIENTED X 4, ORIENTED TO ROOM AND CALL AYALA, O3 @ 3L IN PLACE VIA NC, TELE MONITOT IN PLACE, DENIES PAIN AT THIS TIME, SETTLED IN BED AND SITTING UP AT BEDSIDE, CALL AYALA IN PLACE, WILL CONTINUE TO MONITOR.
--- NOTE | 2021-05-23 13:52 | NUR ---
SLEEPING IN LEFT SIDE-LYING POSITION AT THIS TIME, BREATHING EVEN AND NON-LABORED, CALL AYALA IN REACH.
--- NOTE | 2021-05-23 19:45 | NUR ---
PATIENT ALERT AND ORIENTED. ABLE TO MAKE NEEDS KNOWN. SITTING UP IN BED AT THIS TIME. ASSESSMENT COMPLETE. CALL LIGT AND BELONGINGS WITHIN REACH.
--- NOTE | 2021-05-23 23:00 | NUR ---
PATIENT IN BED, SLEEPING WITH EYES CLOSED. NO SIGNS OF DISTRESS NOTED. CALL LIGHT AND BELONGINGS REMAIN IN REACH.
[2021-05-24] VITALS: BP 133/71
--- NOTE | 2021-05-24 | NUR ---
PATIENT ASLEEP LAYING ON HER LEFT SIDE. NO SIGNS OF DISTRESS NOTED. CALL LIGHT AND BELONGINGS REMAIN IN REACH.
[2021-05-24 04:00] VITALS: BP 142/74
--- NOTE | 2021-05-24 04:00 | NUR ---
RESTING IN BED ON HER LEFT SIDE. ''I'M COMFORTABLE''. NO COMPLAINTS VOICED AT THIS TIME. NO SHORTNESS OF BREATH OR COMPLAINTS OF PAIN. CALL LIGHT AND BELONGINGS WITHIN REACH.
[2021-05-24 05:47] LABS: HEMATOCRIT 38.8 % (37.0-47.0); HEMOGLOBIN 11.8 g/dl (12.0-16.0); MEAN CORPUSCULAR HGB 31.6 pG CALC (26.0-32.0); MEAN CORPUSCULAR HGB CONC 30.4 g/dL CAL (32.0-36.0); RED BLOOD COUNT 3.73 mill/uL (4.20-5.60); RED CELL DISTRI WIDTH 14.3 % (11.5-15.5)
[2021-05-24 05:59] LABS: ANION GAP 9 (6-22 (CALC)); BUN 33 mg/dL (8-23); BUN/CREATININE RATIO 44 (12-20 (CALC)); CARBON DIOXIDE 38 mmol/l (22-30); CHLORIDE 101 mmol/l (95-108); CREATININE 0.7 mg/dL (0.5-1.0); GFR > 60 ML/MIN (>=60 (CALC)); GFR FOR AFR.AMER. > 60 ML/MIN (>=60 (CALC)); MAGNESIUM 2.1 mg/dL (1.6-2.3); POTASSIUM 4.7 mmol/l (3.5-5.1); SODIUM 142 mmol/l (137-146)
[2021-05-24 07:18] VITALS: BP 157/79
--- NOTE | 2021-05-24 07:47 | NUR ---
SHIFT CHANGE REPORT, PT AWAKE ALERT AND ORIENTED SITTING UP IN BED, NO C/O DISCOMFORT, SIGNS MILD TREMORS OBSERVED, O2 @ 3L VIA NC IN PLACE, TELE MONITOR IN PLACE, VS MEASURED AND RECORDED, COMMODE AT BEDSIDE, REMINDED TO CALL FOR ASSIST NEEDED, CALL AYALA IN REACH AND BED LOCKED IN LOWEST POSITION.
[2021-05-24 10:45] VITALS: BP 133/77
--- NOTE | 2021-05-24 12:00 | NUR ---
PT SITTING UP IN BED HAVING DIFFICULTY BREATHING, O2 SATS ON 3L O2 = 85, RESPIRATORY THERAPIST NOTIFIED AND EVALUATED, ADJUSTED O2 LEVELS AND SAID WILL CONTINUE TO MONITOR FOR ACCEPTABLE LEVELS, PT USING ASSESSORY MUSCLES TO ASSIST WITH BREATHING, CALL AYALA IN [facility], WILL CONTINUE TO MONITOR.
--- NOTE | 2021-05-24 12:45 | NUR ---
SITTING UP IN BED, O2 SATS =88-90 ON 6LO2 VA NC, ASSISTED TO BSC AND WITH PERICARE AFTER BLADDER INCONTINENCE, THEN BACK TO BED IN SEMI-FOWLERS POSITION, CALL AYALA IN REACH.
--- NOTE | 2021-05-24 12:49 | NUR ---
Physical therapy tried to initiate PT intervention today with patient, but patient refused today, exhibiting gasping for air even after undergoing a breathing treatment. Patient asked the physical therapist if she could skip PT intervention today and to try again tomorrow. Physical therapy will follow up with patient tomorrow.
[2021-05-24 14:55] VITALS: BP 140/76
--- NOTE | 2021-05-24 15:01 | NUR ---
WEANED O2 FROM 4LPM TO 3LPM. ELI WELLAT THIS TIME.
--- NOTE | 2021-05-24 15:48 | NUR ---
Dr Simental notified of pt's condition and gave new orders, pt is sitting up in bed at this time, o2 sats on 4l = 92%, WILL CONTINUE TO MONITOR.
--- NOTE | 2021-05-24 16:22 | NUR ---
ASSISTED TO BSC AND BACK TO BED, BREATHING LABORED, O2 BEING MONITORED, ALL NEEDS ADDRESSED.
[2021-05-24 19:00] VITALS: BP 127/63
--- NOTE | 2021-05-24 19:19 | NUR ---
PT SITTING IN BED WATCHING TV, NO SIGNS OF DISTRESS NOTED, RESP EVEN AND UNLABORED. PT ALERT AND ORIENTED X3, PT ON 02 3L NC. DISCUSSED POC, PT MEDICATED PER MAR. DISCUSSED MEDICATION SCHEDULES FOR PRN MEDICATIONS. ASSESSMENT COMPLETED, PT VOICES NO NEEDS OR COMPLAINTS AT THIS TIME, CALL LIGHT IN REACH, CONTINUE TO MONITOR.
[2021-05-25] VITALS: BP 133/73
--- NOTE | 2021-05-25 00:02 | NUR ---
PT RESTING IN BED WITH EYES CLOSED, NO SIGNS OF DISTRESS NOTED, RESP EVEN AND UNLABORED. CALL LIGHT IN REACH,CONTINUE TO MONITOR.
--- NOTE | 2021-05-25 02:05 | NUR ---
PT ASSISTED TO BSC, SATS DECREASED TO 82% ON EXERTION, PT BACK TO BED C/O PAIN TO CHEST FROM COUGHING. PT MEDICATED PER AUG. PT ASSISTED BACK TO BED SPO2 INCREASED TO 85% INCREASED 02 TO 4L NC, PT INCREASED TO 88% PT STATES,"IT WILL GET THERE IT JUST TAKES A MINUTE" NO SIGNS OF DISTRESS NOTED, RESP EVEN AND UNLABORED. CALL LIGHT IN REACH,CONTINUE TO MONITOR.
--- NOTE | 2021-05-25 03:35 | NUR ---
PT SITTING IN BED WATCHING TV, NO SIGNS OF DISTRESS NOTED, RESP EVEN AND UNLABORED. PT VOICES NO NEEDS OR COMPLAINTS AT THIS TIME. CALL LIGHT IN REACH, CONTINUE TO MONITOR.
[2021-05-25 04:00] VITALS: BP 148/86
--- NOTE | 2021-05-25 04:12 | NUR ---
PT RESITNG IN BED, SPO2 96% ON 4L NC HI NESS HUMIDIFIED. NO SIGNS OF DISTRESS NOTED, RESP EVEN AND UNLABORED. CALL LIGHT IN REACH,CONTINUE TO MONITOR.
--- NOTE | 2021-05-25 05:00 | NUR ---
PT CALLED C/O PAIN TO HER L LUNG, MEDICATED PER AUG, HOT COMPRESS APPLIED AND MASSAGE TO AREA PROVIDED, PT STATES PAIN SUBSIDING. SPO2 AT 92%. CALL LIGHT IN REACH,CONTINUE TO MONITOR.
[2021-05-25 05:55] LABS: HEMOGLOBIN 12.2 g/dl (12.0-16.0); MEAN CELL VOLUME 102.3 fL CALC (80.0-100.0); MEAN CORPUSCULAR HGB 31.2 pG CALC (26.0-32.0); MEAN CORPUSCULAR HGB CONC 30.5 g/dL CAL (32.0-36.0); RED BLOOD COUNT 3.91 mill/uL (4.20-5.60); RED CELL DISTRI WIDTH 14.1 % (11.5-15.5)
[2021-05-25 06:12] LABS: ANION GAP 8 (6-22 (CALC)); BUN 31 mg/dL (8-23); BUN/CREATININE RATIO 42 (12-20 (CALC)); CARBON DIOXIDE 39 mmol/l (22-30); CHLORIDE 99 mmol/l (95-108); CREATININE 0.7 mg/dL (0.5-1.0); GFR > 60 ML/MIN (>=60 (CALC)); GFR FOR AFR.AMER. > 60 ML/MIN (>=60 (CALC)); MAGNESIUM 2.2 mg/dL (1.6-2.3); POTASSIUM 4.6 mmol/l (3.5-5.1); SODIUM 141 mmol/l (137-146)
[2021-05-25 08:00] VITALS: BP 170/91
--- NOTE | 2021-05-25 08:00 | NUR ---
PT A&O X3 SITTING HIGH FOWLERS ON THE BED. ANXIOUS TOWARDS HER BREATHING. EDUCATED ON BREATHING TECHNIQUES. ASSESSMENT PERFORMED AT THIS TIME. S1&S2 HEARD, LUNG SOUNDS ARE SHALLOW WITH EXPIRATORY WHEEZES, SPO2 87. PT HAS 02 3L HIGHFLOW. IV SITE: 20G RAC, SALINE LOCK. FLUSHED WITH NO RESISTANCE. PT REPORTS NO PAIN AT THIS TIME. FALL PRECAUTIONS ARE IN PLACE. CALL LIGHT WITHIN REACH.
--- NOTE | 2021-05-25 11:00 | NUR ---
CONSULT PLACED AT THIS TIME FOR PER ORDER FOR COPD EXACERBATION.
--- NOTE | 2021-05-25 11:04 | NUR ---
DR. LANGSTON WITH PT DISCUSSING POC
--- NOTE | 2021-05-25 11:32 | NUR ---
REASSESSED PT BP: 180/98. PRN APREZOLINE O.5 ML OF 20 MG/ML GIVEN. PT O2 REMAINS 3L HIGHFLOW SHOWING NO SIGNS OF LEAK. PT LESS ANXIOUS. CONTINUES TO DO PURSED LIP BREATHING TECHNIQUE EXCERCISE. SPO2: 87. IV SITE PATENT SKIN AROUND THE AREA REMAINS INTACT. FALL PRECAUTIONS ARE IN PLACE. CALL LIGHT AND PERSONAL BELONGINGS ARE WITHIN REACH. REPORTS NO PAIN AT THIS TIME.
[2021-05-25 12:00] VITALS: BP 145/71
--- NOTE | 2021-05-25 12:15 | NUR ---
PT IN RADIOLOGY GETTING A CHEST XRAY.
[2021-05-25 16:02] VITALS: BP 166/77
--- NOTE | 2021-05-25 16:06 | NUR ---
RT WITH PT
--- NOTE | 2021-05-25 16:28 | NUR ---
PT STATES FEELING ANXIOUS REQUESTED HER XANAX. XANANX GIVEN 0.25MG PO. IV IS PATENT, FLUSHED WITH NO RESISTANCE. TELE MONITOR IN PLACE. MONITORED BY ED. O2 ON 3L HIGHFLOW. REPORTS NO PAIN AT THIS TIME. CALL LIGHT WITHIN REACH
[2021-05-25 19:00] VITALS: BP 137/81
--- NOTE | 2021-05-25 19:54 | NUR ---
PT SITTING UP IN BED AFTER NEB TX WATCHING TV, NO SIGNS OF DISTRESS NOTED, RESP EVEN AND UNLABORED. PT ALERT AND ORIENTED X3, NO EDEMA. PT ON 02 4L NC, DISCUSSED POC, PT VOICES NO NEEDS OR COMPLAINTS AT THIS TIME. ASSESSMENT COMPLETED, CALL LIGHT IN REACH,CONTINUE TO MONITOR.
--- NOTE | 2021-05-25 21:50 | NUR ---
PT RESTING IN BED WATCHING TV, REQUESTING PAIN MED FOR PAIN TO L CHEST AND SLEEP AIDE, PT MEDICATED PER AUG, VOICES NO OTHER NEEDS OR COMPLAINTS AT THIS TIME, NO SIGNS OF DISTRESS NOTED, RESP EVEN AND UNLABORED. CALL LIGHT IN REACH,CONTINUE TO MONITOR.
[2021-05-26] VITALS: BP 136/84
--- NOTE | 2021-05-26 | NUR ---
PT RESTING IN BED, WITH EYES CLOSED, EASILY AROUSED TO VERBAL STIMULI, VITALS OBTAINED, RESP EVEN AND UNLABORED. 02 TITRATED DOWN TO 3LNC PT SATS 93%, PT VOICES NO NEEDS OR COMPLAINTS AT THIS TIME. CALL LIGHT IN REACH,CONTINUE TO MONITOR.
[2021-05-26 04:30] VITALS: BP 151/85
--- NOTE | 2021-05-26 05:00 | NUR ---
PT RESTING IN BED WITH EYES CLOSED, NO SIGNS OF DISTRESS NOTED, RESP EVEN AND UNLABORED. CALL LIGHT IN REACH,CONTINUE TO MONITOR.
[2021-05-26 05:18] LABS: HEMOGLOBIN 11.9 g/dl (12.0-16.0); MEAN CELL VOLUME 99.5 fL CALC (80.0-100.0); MEAN CORPUSCULAR HGB 31.2 pG CALC (26.0-32.0); MEAN CORPUSCULAR HGB CONC 31.3 g/dL CAL (32.0-36.0); RED BLOOD COUNT 3.82 mill/uL (4.20-5.60); RED CELL DISTRI WIDTH 13.9 % (11.5-15.5)
[2021-05-26 05:34] LABS: ANION GAP 9 (6-22 (CALC)); BUN 28 mg/dL (8-23); BUN/CREATININE RATIO 47 (12-20 (CALC)); CARBON DIOXIDE 36 mmol/l (22-30); CHLORIDE 96 mmol/l (95-108); CREATININE 0.6 mg/dL (0.5-1.0); GFR > 60 ML/MIN (>=60 (CALC)); GFR FOR AFR.AMER. > 60 ML/MIN (>=60 (CALC)); MAGNESIUM 2.2 mg/dL (1.6-2.3); POTASSIUM 4.6 mmol/l (3.5-5.1); SODIUM 136 mmol/l (137-146)
--- NOTE | 2021-05-26 08:02 | NUR ---
PT Maricarmen DONAHUE. VSS. IN BED, EATING BREAKFAST AND WATCHING CARTOONS. SPEAKING FULL SENTENCES. SERVICE DESK SPECIALIST TO MONITOR.
--- NOTE | 2021-05-26 09:00 | NUR ---
PT SEEN AWAKE, ALERT, ORIENTED X 3. LUNGS ARE WHEEZY THROUGHOUT, PT USES 3 LPM NC. NO RESPIRATORY DISTRESS AT THIS TIME, PT PAUSES AFTER SITTING AT SIDE OF BED BEFORE USING BSC TO MAINTAIN ADEQUATE OXYGENATION. BM TODAY.
[2021-05-26 10:55] VITALS: BP 141/73
--- NOTE | 2021-05-26 12:54 | NUR ---
PT SEEN BY DR LANGSTON THIS MORNING, WILL BE DISCHARGED ON FRIDAY AT EARLIE[facility], WHICH SATISFIES PT. PT CONTINUES BEFORE, NO ACUTE DISTRESS, DASILVA.
--- NOTE | 2021-05-26 14:31 | NUR ---
Subjective: Patient states that she continues to struggle with breathing pattern (waiting for a breathing treatment), though patient states that she is breathing a little better today. still labored pattern, but a little better. Objective: Patient participated with the following: Seated hip flexion for 1 x 15 reps. Seated hip abduction for 1 x 15 reps. Seated knee extension for 1 x 15 reps. Seated hamstring curls for 1 x 15 reps. Patient did supine to sitting and sit to stand activity (2 reps) with mod A x 1, with patient struggling with breathing pattern. Assessment: Patient exhibiting slight improvement with ADL participation due to increased rest during the last 2 days of no PT intervention. Patient still struggling with breathing pattern, interfering with patient efficiency in participating with ADLs, needs to continue with PT intervention to improve endurance with increased functional weight bearing ADLs. Plan: Patient needs to continue working on strengthening exercises, transfer, bed mobility, and gait re-training to help improve dynamic balance and functional weight bearing ADL capability, tolerance, and stability. Patient Am Pac score was 10 points with discharge recommendation for extended care facility placement and I agree with this recommendation.
[2021-05-26 14:55] VITALS: BP 144/74
--- NOTE | 2021-05-26 16:24 | NUR ---
IV DRESSING CHANGED OUT PER BLOOD NOTED UNDER DRESSING. PT TOLERATED WELL, FRAGILE SKIN. PT PROVIDED XANAX AND THROAT LOZENGE.
[2021-05-26 19:35] VITALS: BP 145/78
--- NOTE | 2021-05-26 20:05 | NUR ---
1849-REPORT RECEIVED FROM MILI HAUSER. FOUND PATIENT SITTING UP IN BED; AWAKE WATCING TV, ON 4L O2 VIA NC. 1930-NO PAIN REPORTED, MOIST COUGH NOTED, LUNGS ARE WHEEZE ALL THROUGHTOUT, A&OX4, SKIN INTACT, IV SITE IS PATENT, 20G RAC. WILL FOLLOW UP CLOSELY, CALL AYALA AT REACH.
--- NOTE | 2021-05-26 22:51 | NUR ---
administer alprazolam 0.25mg per MD orders per patient request at this time.
--- NOTE | 2021-05-26 23:19 | NUR ---
RT, KEVYN IN PT ROOM GIVING PT A BREATHING TX.
[2021-05-26 23:53] VITALS: BP 100/98; BP 178/94; BP 200/98
[2021-05-27] VITALS (7 sets, daily range): BP systolic 116–200; BP diastolic 63–98
--- NOTE | 2021-05-27 02:42 | NUR ---
PATIENT IS RESTING IN BED, NO NEEDS VOICED, CALL AYALA AT REACH.
--- NOTE | 2021-05-27 04:35 | NUR ---
FOUND PATIENT SITTING UP IN BED, STATES "JUST WOKE UP." NO S/S OF DISTRESS NOTED, WILL MONITOR CLOSELY.
[2021-05-27 05:11] LABS: HEMATOCRIT 40.2 % (37.0-47.0); MEAN CELL VOLUME 97.8 fL CALC (80.0-100.0); MEAN CORPUSCULAR HGB 31.6 pG CALC (26.0-32.0); MEAN CORPUSCULAR HGB CONC 32.3 g/dL CAL (32.0-36.0); RED BLOOD COUNT 4.11 mill/uL (4.20-5.60)
[2021-05-27 05:19] LABS: ANION GAP 12 (6-22 (CALC)); BUN 30 mg/dL (8-23); BUN/CREATININE RATIO 46 (12-20 (CALC)); CARBON DIOXIDE 31 mmol/l (22-30); CHLORIDE 97 mmol/l (95-108); CREATININE 0.7 mg/dL (0.5-1.0); GFR > 60 ML/MIN (>=60 (CALC)); GFR FOR AFR.AMER. > 60 ML/MIN (>=60 (CALC)); MAGNESIUM 2.1 mg/dL (1.6-2.3); POTASSIUM 4.3 mmol/l (3.5-5.1); SODIUM 136 mmol/l (137-146)
--- NOTE | 2021-05-27 06:15 | NUR ---
PATIENT IS RESTING IN BED WITH EYES CLOSED, NO S/S OF DISTRESS NOTED, CALL AYALA AT REACH.
--- NOTE | 2021-05-27 08:00 | NUR ---
[facility] CHANGE REPORT, PT AWAKE ALERT AND ORIENTED SITTING UP IN BED, STATES SHE FEELS BETTER TODAY, O2 @ 3L VIA NC IN PLACE, TELE MONITOR IN PLACE, NEEDS ADDRESSED, CALL AYALA IN REACH AND BED LOCKED IN LOWEST POSITION.
--- NOTE | 2021-05-27 11:52 | NUR ---
MD ROUNDED AND DISCUSSED PLAN OF CARE, PT REPORTING IMPROVED FEELING AND BREATHING IS ALSO IMPROVED ON OBSERVATION, ALL NEEDS ADDRESSED, WILL CONTINUE TO MONITOR.
--- NOTE | 2021-05-27 16:00 | NUR ---
RELAXING IN BED WATCHING TV, CONDITION IMPROVING AND PT REPORTS SHE IS FEELING BETTER, ALL NEEDS ADDRESSED, CALL AYALA IN REACH.
--- NOTE | 2021-05-27 18:45 | NUR ---
REPORT RECEIVED FROM Maricarmen BLEVISN RN
--- NOTE | 2021-05-27 19:30 | NUR ---
ALERT AND ORIENTED X 3, ASSEMENT COMPLETED AT THIS TIME, 93% ON 3.5 L VIA NASAL CANNULA. LAST TELEMETRY READING SR WITH PASC'S 80. LAST REPORTED BOWEL MOVEMENT 05/27, WITH ACTIVE BOWEL SOUNDS. PLAN OF CARE REVIWED WITH PATIENT, DIONY LIGHT AND BEDSIDE TABLE PLACED WITHIN REACH.
[2021-05-28 00:10] VITALS: BP 132/68
--- NOTE | 2021-05-28 00:15 | NUR ---
PATIENT SLEEPING SOUNDLY, AWOKEN BY WRITTER. DECLINES ANY CURRENT NEEDS. CALL LIGHT AND BEDSIDE TABLE WITHIN REACH.
[2021-05-28 04:00] VITALS: BP 132/76
[2021-05-28 05:00] LABS: HEMATOCRIT 35.4 % (37.0-47.0); HEMOGLOBIN 11.5 g/dl (12.0-16.0); MEAN CELL VOLUME 98.3 fL CALC (80.0-100.0); MEAN CORPUSCULAR HGB 31.9 pG CALC (26.0-32.0); MEAN CORPUSCULAR HGB CONC 32.5 g/dL CAL (32.0-36.0); RED BLOOD COUNT 3.6 mill/uL (4.20-5.60)
--- NOTE | 2021-05-28 05:02 | NUR ---
PATIENTAWOKEN BY WRITTER, VOICES NO CURRENT NEEDS. CALL LIGHT AND BEDSIDE TABLE WITHIN REACH.
[2021-05-28 05:09] LABS: ANION GAP 9 (6-22 (CALC)); BUN 30 mg/dL (8-23); BUN/CREATININE RATIO 46 (12-20 (CALC)); CARBON DIOXIDE 31 mmol/l (22-30); CHLORIDE 100 mmol/l (95-108); CREATININE 0.7 mg/dL (0.5-1.0); GFR > 60 ML/MIN (>=60 (CALC)); GFR FOR AFR.AMER. > 60 ML/MIN (>=60 (CALC)); MAGNESIUM 1.9 mg/dL (1.6-2.3); POTASSIUM 4.2 mmol/l (3.5-5.1); SODIUM 136 mmol/l (137-146)
[2021-05-28 07:00] VITALS: BP 142/76
--- NOTE | 2021-05-28 07:00 | NUR ---
PATIENT RESTING IN BED AT THIS TIME. PATIENT DENIES ANY PAIN AND DOES PRESENT WITH EXPIRATORY WHEEZING AND DIMINISHED LUNG SOUNDS. PATIENT IS ALERT AND ORIENTED X4 TELE MONITOR IN PLACE AND BEING MONITORED BY ED. SIDERAILS ARE UP X 2 CALL LIGHT IS WITHIN REACH. HI LIFT OPERATOR DONE SEE INTERVENTIONS.
--- NOTE | 2021-05-28 09:53 | NUR ---
DR. HANEY AND CHRISTINA CAGE FEEDER WORKER POWER UNIT OPERATOR IN TO SEE PATIENT AT THIS TIME.
--- NOTE | 2021-05-28 10:31 | NUR ---
PATIENT COVID TEST DONE AT THIS TIME.
[2021-05-28 11:00] VITALS: BP 142/76
--- NOTE | 2021-05-28 11:19 | NUR ---
PATIENT RESTING IN BED AT THIS TIME. DENIES ANY PAIN AND OR NEEDS CURRENTLY ON 3.5L OF 02 AND SPO2 IS 94% AT THIS TIME. SIDERAILS ARE UP CALL LIGHT IS WITHIN REACH.
--- NOTE | 2021-05-28 11:36 | NUR ---
Pt seen this am for treatment. She was awake and without complaints voiced. LE ex performed in sitting 2 x10 reps for hip flexion/knee extension/hip abd/add, and ankle AROM 2 x 10 reps. Standing balance performed with CGA. [facility] 02 sats at 90% during treatment with 3l [address]HR in 80's. Pt AMPAC was 82. Gait belt and non skid sock used during treatment.. Pt would benefit from SNF.
[2021-05-28] MEDS ORDERED: TRAMADOL HCL50 MG PO (13:40)
[2021-05-28] MEDS ORDERED: AMLODIPINE BESYL5 MG PO (13:40)
[2021-05-28] MEDS ORDERED: PREDNISONE10 MG PO (13:40)
[2021-05-28] MEDS ORDERED: XANAX0.25 MG PO (13:41)
--- NOTE | 2021-05-28 14:20 | NUR ---
PATIENT RESTING IN BED AT THIS TIME. PATIENT INFORMED OF D/C AND FINANCIAL REPORTING ANALYST TIME TO GO TO [facility]. PATIENT VERBALIZES UNDERSTANDING OF GOING TO REHAB AND UNDERSTANDING OF D/C INSTRUCTIONS AT THIS TIME. SIDERAILS ARE UP CALL LIGHT WITHIN REACH.
--- NOTE | 2021-05-28 16:10 | NUR ---
Discharge instructions given. Patient verbalizes understanding of same. Discharged in stable condition via Wheelchair to Home with *Other. All belongings sent with pt. PATIENT WENT TO REHAB AT [facility] REPORT CALLED TO KELLEN AT [facility]
== END 2021-05-28 16:10 | DRG 190 ==
LOC: ED 11:59 → ED-I 13:33 → ED 13:47 → ICU 13:48 → MS2 05-23 10:30
PROVIDERS: Family Medicine; ADMIT Internal Medicine; ATTEND Hospitalist
PROC: 5A09457 Assistance with Respiratory Ventilation, 24-96 Consecutive Hours, Continuous Positive Airway Pressure (ICD-10-PCS; principal; 2021-05-20)
DX: J44.1 Chronic obstructive pulmonary disease with (acute) exacerbation (principal); J96.22 Acute and chronic respiratory failure with hypercapnia; J96.21 Acute and chronic respiratory failure with hypoxia; I10 Essential (primary) hypertension; I25.10 Atherosclerotic heart disease of native coronary artery without angina pectoris; E78.5 Hyperlipidemia, unspecified; F41.9 Anxiety disorder, unspecified; K21.9 Gastro-esophageal reflux disease without esophagitis; I25.2 Old myocardial infarction; Z87.891 Personal history of nicotine dependence; Z99.81 Dependence on supplemental oxygen; Z20.822 Contact with and (suspected) exposure to COVID-19
CPT/HCPCS: J1956; Q9967

== ENCOUNTER 2021-07-13 15:25 | Observation (INO) | payer MEDICARE ==
[2021-07-13] VITALS (7 sets, daily range): BP systolic 101–123; BP diastolic 58–77
[~2021-07-13] VITALS: Ht 157.5 cm; Wt 43.7 kg
[~2021-07-13 15:25] MED LIST changes: +AMLODIPINE BESYL5 MG PO; +FAMOTIDINE20 M1 PO; +ISORDIL TITRADOS5 MG PO; +ISOSORBIDE MONO30 MG PO; +LIPITOR40 M1 PO; +LOPRESSOR25 M1 PO; +PREDNISONE20 MG PO; +TRELEGY ELLIPTA1 AER IN; +VENTOLIN HFA IN
--- NOTE | 2021-07-13 15:35 | NUR ---
PATIENT TO ROOM VIA EMS AND PHYSICIAN AT BEDSIDE FOR EVAL
[2021-07-13 16:10] LABS: HEMOGLOBIN 12.7 g/dl (12.0-16.0); IMMATURE GRANULOCYTES 0.6 % (0.0-5.0); MEAN CELL VOLUME 99.5 fL CALC (80.0-100.0); MEAN CORPUSCULAR HGB 30.5 pG CALC (26.0-32.0); MEAN CORPUSCULAR HGB CONC 30.7 g/dL CAL (32.0-36.0); NEUT# 16.87 thou/uL (2.00-7.15); RED BLOOD COUNT 4.16 mill/uL (4.20-5.60); RED CELL DISTRI WIDTH 14.6 % (11.5-15.5)
[2021-07-13 16:11] LABS: HEMATOCRIT 41.4 % (37.0-47.0)
[2021-07-13 16:31] LABS: ACT PARTIAL THROMBO TIME 24.5 SECONDS (20.0-32.5); ALBUMIN 3.9 g/dL (3.2-5.0); ALKALINE PHOSPHATASE 70 u/l (38-126); ANION GAP 14 (6-22 (CALC)); BILIRUBIN, TOTAL 1.5 mg/dL (0.0-1.4); BUN 12 mg/dL (8-23); BUN/CREATININE RATIO 18 (12-20 (CALC)); CARBON DIOXIDE 28 mmol/l (22-30); CHLORIDE 95 mmol/l (95-108); CREATININE 0.7 mg/dL (0.5-1.0); GFR > 60 ML/MIN (>=60 (CALC)); GFR FOR AFR.AMER. > 60 ML/MIN (>=60 (CALC)); LIPASE 51 u/l (23-300); POTASSIUM 3.6 mmol/l (3.5-5.1); PROTHROMBIN TIME 10.6 SECONDS (9.0-12.5); SGOT/AST 22 u/l (9-36); SODIUM 133 mmol/l (137-146); TOTAL PROTEIN 6.9 g/dL (6.3-8.2)
--- NOTE | 2021-07-13 18:35 | NUR ---
REPORT CALLED TO MILI PRYOR ICU 5
--- NOTE | 2021-07-13 18:54 | NUR ---
PT ARRIVED TO UNIT VIA STRETCHER WITH ER STAFF; ALERT AND ORIENTED X 3. AMBULATORY TO BED; USED BSC TO VOID UPON ARRIVAL. IV FLUIDS AND VANCOMYCIN INFUSING; IV SITE APPEARS HEALTHY. ASSESSMENT COMPLETE. DENIES PAIN. SOB; RESPIRATIONS SLIGHTLY LABORED ON OXYGEN 3L VIA NC; PT IS HOME DEPENDENT ON 2-3L/MIN. TACHYCARDIC; HEART RATE RANGING FROM 110S-130S; STATES THAT SHE DID NOT TAKE HER LOPRESSOR THIS MORNING. ORIENTED TO ROOM AND CALL LIGHT SYSTEM. PLAN OF CARE DISCUSSED. PT ENCOURAGED TO VERBALIZE CONCERNS; STATES UNDERSTANDING. SAFETY MEASURES IN PLACE. CALL LIGHT WITHIN REACH.
--- NOTE | 2021-07-13 20:23 | NUR ---
LOPRESSOR GIVEN; HEART RATE UP TO 136 WITH EXERTION. PT SITTING UP IN BED; ATE DINNER AND NOW TALKING TO HER SON ON THE PHONE. PT REQUESTING SLEEPING MEDICATION LATER IN THE EVENING. RESPIRATIONS REMAIN SLIGHTLY LABORED THROUGHOUT THESE ACTIVITIES; SPO2 97%.
--- NOTE | 2021-07-13 20:40 | NUR ---
RESPIRATORY THERAPY AT BEDSIDE FOR BREATHING TREATMENT.
--- NOTE | 2021-07-13 21:49 | NUR ---
SONATA GIVEN WITH PM MEDICATIONS. VIBRAMYCIN INFUSING AT THIS TIME; INFUSION SLOWED DUE TO PAIN WITH ADMNISTRATION. PT UP TO BSC INDEPENDENTLY.
--- NOTE | 2021-07-13 23:40 | NUR ---
PT RESTING WITH EYES CLOSED AND NO SIGNS OF DISTRESS. RESPIRATIONS EVEN AND UNLABORED.
[2021-07-14] VITALS (9 sets, daily range): BP systolic 85–126; BP diastolic 52–70
--- NOTE | 2021-07-14 02:00 | NUR ---
HYPOTENSIVE AFTER MEDICATIONS; ASYMPTOMATIC. NORMAL SALINE INFUSING; WILL CONTINUE TO MONITOR. CURRENTLY AFIB ON HEART MONITOR WITH HEART RATE 80S-90S. HAS PRODUCTIVE COUGH WITH YELLOW SPUTUM.
[2021-07-14 04:14] LABS: HEMATOCRIT 35.7 % (37.0-47.0); MEAN CELL VOLUME 99.2 fL CALC (80.0-100.0); MEAN CORPUSCULAR HGB 30.6 pG CALC (26.0-32.0); MEAN CORPUSCULAR HGB CONC 30.8 g/dL CAL (32.0-36.0); NEUT# 13.93 thou/uL (2.00-7.15); RED BLOOD COUNT 3.6 mill/uL (4.20-5.60); RED CELL DISTRI WIDTH 14.9 % (11.5-15.5)
[2021-07-14 04:36] LABS: ALKALINE PHOSPHATASE 54 u/l (38-126); ANION GAP 11 (6-22 (CALC)); BUN 14 mg/dL (8-23); BUN/CREATININE RATIO 24 (12-20 (CALC)); CARBON DIOXIDE 26 mmol/l (22-30); CHLORIDE 101 mmol/l (95-108); CREATININE 0.6 mg/dL (0.5-1.0); GFR > 60 ML/MIN (>=60 (CALC)); GFR FOR AFR.AMER. > 60 ML/MIN (>=60 (CALC)); POTASSIUM 3.8 mmol/l (3.5-5.1); SGOT/AST 16 u/l (9-36); SODIUM 134 mmol/l (137-146)
[2021-07-14 04:44] LABS: ALBUMIN 2.9 g/dL (3.2-5.0); BILIRUBIN, TOTAL 0.6 mg/dL (0.0-1.4)
--- NOTE | 2021-07-14 04:57 | NUR ---
UP TO BS INDEPENDENTLY FOR SMALL BOWEL MOVEMENT AND VOID. SPO2 DECREASED TO 86% WITH EXERTION; PT RECOVERS QUICKLY; AT REST SPO2 INCREASED BACK TO 98%. REMAINS ON OXYGEN 2L VIA NC.
--- NOTE | 2021-07-14 07:45 | NUR ---
PT REPORT RECEIVED FROM EQUAL EMPLOYMENT OPPORTUNITY OFFICER. PT AWAKE WATACHING TV, VOICES NO COMPLAINTS AT THIS TIME, STATES IS ALWAYS ON HOME O2 @ 4 LITRES FOR YEARS, CAME IN BECAUSE OF INCREASED SOB BUT STATES FEELS BETTER AT THIS TIME. VITAL SIGNS STABLE.
[2021-07-14] MEDS ORDERED: DOXYCYCLINE100 MG PO (10:29)
[2021-07-14] MEDS ORDERED: PREDNISONE50 MG PO (10:30)
--- NOTE | 2021-07-14 11:36 | NUR ---
pt sitting up in bed watching tv, denies any complaints, states ready to go home, vital signs stable.
--- NOTE | 2021-07-14 14:10 | NUR ---
pt sitting up in bed, stable, vital signs stable. oxygen remains at 94% on o2 @ 4 litre per home. waiting for family to arrive.
--- NOTE | 2021-07-14 14:59 | NUR ---
pt discharged with inst. and rx with family. pt and family voices understanding. pt w/c to car. thanked us for her care
== END 2021-07-14 15:00 | disposition home or self-care (01) ==
LOC: ED 15:25 → ED-I 16:50 → ED 17:18 → ICU 17:19
PROVIDERS: ADMIT Internal Medicine; ATTEND Internal Medicine
DX: J44.1 Chronic obstructive pulmonary disease with (acute) exacerbation (principal); J06.9 Acute upper respiratory infection, unspecified; I10 Essential (primary) hypertension; I25.10 Atherosclerotic heart disease of native coronary artery without angina pectoris; E78.5 Hyperlipidemia, unspecified; F41.9 Anxiety disorder, unspecified; I25.2 Old myocardial infarction; Z88.1 Allergy status to other antibiotic agents; Z87.891 Personal history of nicotine dependence; Z99.81 Dependence on supplemental oxygen; Z20.822 Contact with and (suspected) exposure to COVID-19
CPT/HCPCS: J1650

== ENCOUNTER 2021-08-16 10:59 | Inpatient (IN) | payer MEDICARE ==
[2021-08-16] VITALS (25 sets, daily range): BP systolic 112–180; BP diastolic 68–115
[~2021-08-16] VITALS: Ht 157.5 cm; Wt 45.0 kg
[~2021-08-16 10:59] MED LIST changes: +DOXYCYCLINE100 MG PO; +PREDNISONE50 MG PO
--- NOTE | 2021-08-16 10:59 | NUR ---
PATIENT TO ROOM VIA EMS STRETCHER.
--- NOTE | 2021-08-16 11:15 | NUR ---
PATIENT PLACED ON BIPAP.
[2021-08-16 11:36] LABS: HEMATOCRIT 36.3 % (37.0-47.0); HEMOGLOBIN 11.1 g/dl (12.0-16.0); IMMATURE GRANULOCYTES 1.1 % (0.0-5.0); MEAN CELL VOLUME 98.1 fL CALC (80.0-100.0); MEAN CORPUSCULAR HGB CONC 30.6 g/dL CAL (32.0-36.0); NEUT# 12.92 thou/uL (2.00-7.15); RED BLOOD COUNT 3.7 mill/uL (4.20-5.60); RED CELL DISTRI WIDTH 15.1 % (11.5-15.5)
[2021-08-16 12:17] LABS: ALKALINE PHOSPHATASE 65 u/l (38-126); ANION GAP 17 (6-22 (CALC)); BILIRUBIN, TOTAL 0.4 mg/dL (0.0-1.4); BUN 12 mg/dL (8-23); BUN/CREATININE RATIO 26 (12-20 (CALC)); CARBON DIOXIDE 22 mmol/l (22-30); CHLORIDE 104 mmol/l (95-108); CREATININE 0.5 mg/dL (0.5-1.0); GFR > 60 ML/MIN (>=60 (CALC)); GFR FOR AFR.AMER. > 60 ML/MIN (>=60 (CALC)); POTASSIUM 3.3 mmol/l (3.5-5.1); SGOT/AST 28 u/l (9-36); SODIUM 139 mmol/l (137-146)
[2021-08-16 12:18] LABS: TOTAL PROTEIN 6.6 g/dL (6.3-8.2)
--- NOTE | 2021-08-16 12:27 | NUR ---
PT REMOVED MASK TO QWIPE FACE REQUESTING WATER WILL PROVIDE, REAPPLIED AMASK AT THIS TIME, WILL COTNINUE TO MONITOE,.
--- NOTE | 2021-08-16 13:03 | NUR ---
PT REMAINS ALERT AND ANXIOUS MD AWARE
--- NOTE | 2021-08-16 13:45 | NUR ---
PT RESTING AWARE OFPLANNED ADMISSION, TOLERATING BI PAP AT THIS TIME, IMPROVED SINCE MEDICATED FOR ANXIETY. PUREWICK REMAINS IN PLACE/USE, WILL CONTINUE TO MONITOR.
[2021-08-16] MEDS ORDERED: FLONASE AL50 MCG/ACT NAB (14:54)
[2021-08-16] MEDS ORDERED: SINGULAIR10 MG PO (14:55)
[2021-08-16] MEDS ORDERED: CLARITIN10 M2 PO (14:55)
[2021-08-16] MEDS ORDERED: NITROSTAT0.4 MG SL (15:08)
--- NOTE | 2021-08-16 15:45 | NUR ---
PT RESTING CONTINUES TO TOLERATE BI PAP, VSS WILL CONTINUE TO MONITOR.
--- NOTE | 2021-08-16 17:00 | NUR ---
PT RESTING AWARE OF PLANNED ADMISSION, DOZING AND TOLERATING BI PAP WELL
--- NOTE | 2021-08-16 18:20 | NUR ---
PT RESTING AWARE OF PLANNED ADMSIION AFTER CHANGE OF SHIFT, OFFERS NO COMPLAINTS,
--- NOTE | 2021-08-16 19:00 | NUR ---
PT AWOKEN BY R.T. FOR NEB TX AND VERY ANXIOUS ABOUT INCONTINENCE EXPLAINED TO PT PRIORTY IOS BREATHING AND ONCE THAT IS CONTROLLED AND WE WILL GET HER CLEANED UP AND DRY. PT REMAINS ANXIOUS ADMITTING DR KENNEDY FOR ORDER REQUEST AWAITING RESPONSE
--- NOTE | 2021-08-16 19:19 | NUR ---
REPORT CALLED TO MIROSLAVA LARSEN IN ICU
--- NOTE | 2021-08-16 19:30 | NUR ---
UPDATED REGARDING ANXIETY ETC. SPOKE WITH RNicholas REGARDING TRYING VAPO THERM.
--- NOTE | 2021-08-16 19:40 | NUR ---
PATIENT COMPLAINING OF SOB. O2 SATS DECREASED TO 78%. INCREASED O2 TO 100% ON BIPAP WITH SPO2 INCREASING TO 81%. DR. IVIS SNOW. ABG DRAWN.
--- NOTE | 2021-08-16 20:00 | NUR ---
PLACED ON VAPOTHERM AT 40L/100%. SPO2 INCREASED TO 93%.
--- NOTE | 2021-08-16 21:25 | NUR ---
75 yr old white female admitted [id number] per stretcher from er. transferred x3 assists to bed. bipap cont. hob elevated. no acute resp distress. signals collector/analyst shows sinus tach hr 114. #20 rac #18 lfa saline locks. history obtained per pt # er record. oriented to room. fall precautions initiated. purewick cath placed. spoke @ length to pt about anxiety, sob, & breathing techniques. pt verbalized understanding.
[2021-08-17] VITALS (21 sets, daily range): BP systolic 132–179; BP diastolic 69–98
--- NOTE | 2021-08-17 00:01 | NUR ---
eyes closed. no distress. quality assurance monitor shows sinus rhythm hr 84.
--- NOTE | 2021-08-17 02:00 | NUR ---
eyes closed. no apparent distress. hob remains elevated.
--- NOTE | 2021-08-17 04:10 | NUR ---
voided per bsc. returned to bed then voided incont in bed. linen changed.
--- NOTE | 2021-08-17 04:30 | NUR ---
lab here. blood drawn
[2021-08-17 04:43] LABS: HEMATOCRIT 36.9 % (37.0-47.0); HEMOGLOBIN 11.1 g/dl (12.0-16.0); MEAN CELL VOLUME 101.1 fL CALC (80.0-100.0); MEAN CORPUSCULAR HGB 30.4 pG CALC (26.0-32.0); MEAN CORPUSCULAR HGB CONC 30.1 g/dL CAL (32.0-36.0); RED BLOOD COUNT 3.65 mill/uL (4.20-5.60); RED CELL DISTRI WIDTH 15.5 % (11.5-15.5)
[2021-08-17 04:56] LABS: ANION GAP 17 (6-22 (CALC)); BUN 11 mg/dL (8-23); BUN/CREATININE RATIO 26 (12-20 (CALC)); CARBON DIOXIDE 21 mmol/l (22-30); CHLORIDE 108 mmol/l (95-108); CREATININE 0.4 mg/dL (0.5-1.0); GFR > 60 ML/MIN (>=60 (CALC)); GFR FOR AFR.AMER. > 60 ML/MIN (>=60 (CALC)); MAGNESIUM 1.9 mg/dL (1.6-2.3); POTASSIUM 3.8 mmol/l (3.5-5.1); SODIUM 142 mmol/l (137-146)
--- NOTE | 2021-08-17 07:00 | NUR ---
REPORT RECEIVED FROM [place]. PT RESTING WITH EYES CLOSED. RT IN TO EVALUATE VAPOTHERM. TITRATED 27L 45% FIO2. TOLERATING WELL. CALL LIGHT WITHIN REACH. WILL CONTINUE TO MONITOR VS AND NOTIFY RT IF DESATURATION OCCURS.
--- NOTE | 2021-08-17 07:44 | NUR ---
PT ASLEEP. nad. VSS. WEANED HHFNC PER PT SPO2. PT ELI WELL AT THIS TIME. FILLER MIXER TO MONITOR.
--- NOTE | 2021-08-17 08:00 | NUR ---
PT ADMITS TO BEING WEAK AND MILDLY SOB THIS AM. REQUESTING TO USE THE BED [place]. CONTINENT OF URINE. ASSESSMENT PREFORMED. VSS. PT DENIES PAIN, OR DISCOMFORT. DOES ADMIT TO BEING MILDLY SOB. DENIES ANY NEEDS AT THIS TIME. CALL LIGHT WITHIN REACH, INSTRUCTED PT TO CALL FOR ASSISTANCE. STATES UNDERSTANDING.
--- NOTE | 2021-08-17 09:00 | NUR ---
PT AWAKE AND ALERT. DOES NOT APPEAR TO BE ANXIOUS. VSS. AM MEDICATIONS FIVEN. PT TOLERATED PO INTAKE WELL. SPO2 REMAINS BETWEEN 86-92% WITH EATING AND DRINKING. CALL LIGHT WITHIN REACH. INSTRUCTED PT TO CALL FOR ASSISTANCE, VERBALIZES UNDERSTANDING.
--- NOTE | 2021-08-17 13:00 | NUR ---
NOTIFIED AT THIS TIME OF PT'S REQUEST TO BE CHANGED FROM FULL CODE TO DNR STATUS. PT STATES "IM NOT GOING TO BE AROUND MUCH LONGER, THIS COPD IS GETTING WORSE." PT ASKED IF SHE WANTED EXTREME MEASURES TAKEN IN THE EVENT SHE WERE TO STOP BREATHING OR HEART WERE TO STOP BEATING. PT STATES "KNOW PLEASE JUST LET ME GO, GIVE ME SOME MORPHINE AND KEEP ME COMFORTABLE. I TAKE PROLIA FOR MY BRITTLE BONES. IF YOU DID CPR ON ME, EVERYTHING WOULD BE BROKEN." CODE STATUS CHANGED TO DNR. RT IN AT THIS TIME FOR BREATHING TREATMENT. SPO2 IS 100%. NO CHANGE TO VAPOTHERM. PT TOLERATED GETTING OOB TO [facility]SC AND BED CHANGE WITH NO S/S OF RESPIRATORY DISTRESS.
--- NOTE | 2021-08-17 15:43 | NUR ---
titrated parameters of hhfn as per pt spo2/anxiety. Rn communicated c . aware. pt to jorge luis at this time.
--- NOTE | 2021-08-17 15:49 | NUR ---
NOTIFIED OF PT'S WORSENING ANXIETY WITH SOB AND WHEEZING. ATIVAN PO D/C'D AND ATIVAN IV ORDERED INSTEAD. PT GIVEN MEDICATION, AND EXPLANATION OF NOT TAKING THE ALBUTERAL. STATES UNDERSTANDING. PT IS ROCKING BACK AND FORTH ON BED CURRENTLY. SAFETY REVIEWED, SPO2 IS BETWEEN 87-92%. INSTRUCTED PT TO CALL FOR ASSISTANCE, STATES UNDERSTANDING. WILL CONTINUE TO MONITOR.
--- NOTE | 2021-08-17 16:44 | NUR ---
pt less anxious, resting comfortably. director furniture able to wean hhfnc paramters below prvious documented paramters. pt fito well at this time. nad. vss. resting comfortably. rn aware. director furniture to monitor.
--- NOTE | 2021-08-17 16:58 | NUR ---
RT NOTIFIED OF PT'S THERAPEUTIC RESPONSE TO ATIVAN IV. OXYGEN TITRATED TO 25L 40% FIO2. PT RESTING WITH EYES CLOSED ON THE RIGHT SIDE. DOES NOT APPEAR TO BE IN ANY TYPE OF DISTRESS. WILL CONTINUE TO MONITOR CLOSELY.
--- NOTE | 2021-08-17 19:30 | NUR ---
eyes closed. no resp diff.
--- NOTE | 2021-08-17 20:30 | NUR ---
awakens easily. nad. relaxed & calm @ present. o2 cont per vapotherm. #20 rac saline lock. youth nutritional monitor shows sinus rhythm hr 72. po fluids taken fair. voids per bsc. fall precautions cont.
--- NOTE | 2021-08-17 22:00 | NUR ---
eyes closed. no distress. monitoring manager shows sinus rhythm pacs pvcs hr 72.
[2021-08-18] VITALS (25 sets, daily range): BP systolic 114–173; BP diastolic 63–94
--- NOTE | 2021-08-18 00:01 | NUR ---
eyes closed. hob remains elevated. no resp diff.
--- NOTE | 2021-08-18 02:00 | NUR ---
resting quietly. resps een & unlabored. no apparent distress.
--- NOTE | 2021-08-18 03:15 | NUR ---
up to bsc. fito well.
--- NOTE | 2021-08-18 04:15 | NUR ---
lab here. blood drawn
[2021-08-18 04:30] LABS: HEMATOCRIT 33.2 % (37.0-47.0); MEAN CELL VOLUME 97.9 fL CALC (80.0-100.0); MEAN CORPUSCULAR HGB 29.5 pG CALC (26.0-32.0); MEAN CORPUSCULAR HGB CONC 30.1 g/dL CAL (32.0-36.0); RED BLOOD COUNT 3.39 mill/uL (4.20-5.60); RED CELL DISTRI WIDTH 15.3 % (11.5-15.5)
[2021-08-18 04:44] LABS: ANION GAP 10 (6-22 (CALC)); BUN 21 mg/dL (8-23); BUN/CREATININE RATIO 40 (12-20 (CALC)); CHLORIDE 107 mmol/l (95-108); CREATININE 0.5 mg/dL (0.5-1.0); GFR > 60 ML/MIN (>=60 (CALC)); GFR FOR AFR.AMER. > 60 ML/MIN (>=60 (CALC)); MAGNESIUM 2.2 mg/dL (1.6-2.3); POTASSIUM 3.6 mmol/l (3.5-5.1); SODIUM 142 mmol/l (137-146)
[2021-08-18 04:45] LABS: CARBON DIOXIDE 29 mmol/l (22-30)
--- NOTE | 2021-08-18 06:02 | NUR ---
eyes closed. has been calm this shift. o2 cont.
--- NOTE | 2021-08-18 07:19 | NUR ---
PT REPORT RECEIVED FROM [place]. PT POWDERED METAL SUPERVISOR LIGHT REQUESTING ANXIETY MEDICATION. PRIOR DAY RE-CALLED, WITH EVENTS AND DECISIONS MADE. PT APPREHENSIVE ABOUT BEING A DNR. EXPLANATION GIVEN TO PATIENT OF WHAT DNR MEANT. PT STATES "I NEED TO TALK TO MY FAMILY ABOUT MY WISHES FIRST, BEFORE I OFFICIALLY MAKE MYSELF A DNR." WILL NOTIFY MD OF PT'S REQUEST. CASE MANAGEMENT AWARE OF PT'S REQUEST FOR LIVING WILL. VSS, ASSESSMENT PREFORMED. CALL LIGHT WITHIN REACH. ATIVAN GIVEN FOR ANXIETY. BED ALARM PLACED FOR ADDITIONAL SAFETY. INSTRUCTED PT TO CALL FOR ASSISTANCE, VERBALIZES UNDERSTANDING.
--- NOTE | 2021-08-18 08:02 | NUR ---
PT REFUSED NEB THERAPY PER [facility]. PT Maricarmen DONAHUE. VSS. SPEAKING FULL SENTENCES. SPO2 =96 ON HHFNC PARAMTERS. LEDGER CLERK TO WEAN PT ELI. LEDGER CLERK TO MONITOR.
--- NOTE | 2021-08-18 10:31 | NUR ---
weaned hhfnc as per md chanel to maintain spo2 88-91. cuurent paramters hhfnc 15lpm/30%, pt fito well at this time. states she feels good, breathing is still doing well. microfilm machine operator to reasses/titrate if needed in approx 1 hour. nad. vss. rn aware. microfilm machine operator to monitor.
--- NOTE | 2021-08-18 12:00 | NUR ---
FAMILY AT . CASE MANAGEMENT NOTIFIED OF PT'S REQUEST FOR LIVING WILL INFORMATION. STATES SHE WILL BE BY TO GIVE PAMPHLET.
--- NOTE | 2021-08-18 14:00 | NUR ---
INFORMATION OF LIVING WILL COPIED AND PLACED ON CHART. PT GIVEN ORIGINAL COPY. EXPLANATION OF CODE STATUS GONE OVER. PT AND FAMILY CHOOSE TO REMAIN FULL CODE, WITH UNDERSTANDING OF CPR INTERVENTIONS IF PATIENT SHOULD NEED LIFE SAVING EFFORTS. VSS, PT DENIES SOB OR DIFFICULTY BREATHING. CALL LIGHT WITHIN REACH. INSTRUCTED PT TO CALL FOR ASSISTANCE, VERBALIZES UNDERSTANDING.
--- NOTE | 2021-08-18 16:00 | NUR ---
PT VSS, CALL LIGHT WITHIN REACH. RESTING WITH EYES CLOSED. DOES NOT APPEAR TO BE IN ANYTYPE OF DISTRESS. WILL CONTINUE TO MONITOR.
--- NOTE | 2021-08-18 19:00 | NUR ---
REPORT RECIEVED FROM OUTGOING SHIFT. PT AWAKE ALERT AND ORIENTED X 3 SITTING UP AT BEDSIDE. RESPIRATIONS EVEN AND UNLABORED. PATIENT PLEASANT AND COOPERATIVE X 3 ASSISTED TO BSC O2 SAT AT 83% WITH ACTIVITY SOB WITH EXERTION NOTED. PATIENT RECOVERS TO 92% WHILE IN BED.
--- NOTE | 2021-08-18 21:00 | NUR ---
PATIENT ASSISTED TO BSC FIO2 ADJUSTED BY RT TO MAINTAIN OXYGEN SATUATION BETWEEN 88-92%
--- NOTE | 2021-08-18 23:00 | NUR ---
RESTING QUIETLY IN BED WITH EYSES CLOSED NO ACUTE DISTRESS NOTED.
[2021-08-19] VITALS (17 sets, daily range): BP systolic 108–188; BP diastolic 57–93
--- NOTE | 2021-08-19 00:02 | NUR ---
SITTING UP AT BEDSIDE COMPLAIN OF ACHING NORADIATING MIDSTERNAL CHESTPAIN AGGRAVATED BY COUGHING. STATED STATED FEW MINUTES AO AFTER USING BSC WITH ASSISTANCE 12-LEAD EKG OBTAINED PAIN AT 4 OUT OF 10 NO INCREASED SOB
--- NOTE | 2021-08-19 00:26 | NUR ---
CHEST PAIN RESOLVED PATIENT RESTING QUIETLY IN BED WITHOUT DISTRESS. 12-LEAD EKG SHOWS NO ACUTE CHANGES COMPARED TO PREVIOUS EKG. CONTRACT ANALYST SHOW SINUS RHYTHM WITH OCCASSIONAL PAC'S
--- NOTE | 2021-08-19 02:28 | NUR ---
RESTING QUIETLY IN BED NO ACUTE DISTRSS NOTED RESPIRATIONS EVEN AND UNLABORED
[2021-08-19 05:35] LABS: HEMATOCRIT 38.2 % (37.0-47.0); HEMOGLOBIN 11.6 g/dl (12.0-16.0); MEAN CELL VOLUME 98.7 fL CALC (80.0-100.0); MEAN CORPUSCULAR HGB CONC 30.4 g/dL CAL (32.0-36.0); RED BLOOD COUNT 3.87 mill/uL (4.20-5.60); RED CELL DISTRI WIDTH 15.2 % (11.5-15.5)
[2021-08-19 05:59] LABS: ANION GAP 14 (6-22 (CALC)); BUN 22 mg/dL (8-23); BUN/CREATININE RATIO 34 (12-20 (CALC)); CARBON DIOXIDE 29 mmol/l (22-30); CHLORIDE 104 mmol/l (95-108); CREATININE 0.6 mg/dL (0.5-1.0); GFR > 60 ML/MIN (>=60 (CALC)); GFR FOR AFR.AMER. > 60 ML/MIN (>=60 (CALC)); MAGNESIUM 2.2 mg/dL (1.6-2.3); POTASSIUM 3.6 mmol/l (3.5-5.1); SODIUM 144 mmol/l (137-146)
--- NOTE | 2021-08-19 06:37 | NUR ---
AWAKE AND ALERT FIOS CHANGED TO 50% C/O MODERATE ANXETY SITTING UP IN BED HIGH JACOBSEN MEDICATED WITH ATIVAN 2 MG SLOW IV PUSH TO RELIEVE ANXIETY.
--- NOTE | 2021-08-19 07:00 | NUR ---
REPORT RECEIVED FROM MILI WOLF. PT AWAKE ALERT AND APPROPRIATE. VSS. PT DENIES ANXIETY, SOB OR DISCOMFORT. RESTING SEMI-FOWLERS WITH VAPOTHERM ON. CALL LIGHT WITHIN REACH. INSTRUCTED PT TO CALL FOR ASSISTANCE. WILL CONTINUE
--- NOTE | 2021-08-19 10:00 | NUR ---
PT RESTING IN BED, FAMILY AT BS. DENIES NEEDS OR CONCERNS. VSS. CALL LIGHT WITHIN REACH. DOES NOT APPEAR TO BE IN ANYTYPE OF DISTRESS.
--- NOTE | 2021-08-19 12:00 | NUR ---
PT AWAKE AND ALERT, EATING LUNCH TRAY INDEPENDANTLY. VSS. DENIES NEEDS OR CONCERNS. CALL LIGHT WITHIN REACH. INSTRUCTED PT TO CALL FOR ASSISTANCE, VERBALIZES UNDERSTANDING.
--- NOTE | 2021-08-19 16:40 | NUR ---
PT C/O SOB WITH EXERTION. HAVING ANXIOUS TENDANCIES. ATIVAN GIVEN AT THIS TIME. 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 WILL CONTINUE TO MONITOR.
--- NOTE | 2021-08-19 18:19 | NUR ---
PT SITTING IN BED, TALKING ON PHONE NO DISTRSS NOTED. ATIVAN EFFECTIVE. PT TOLERATING DINNER. CALL LIGHT WITHIN REACH. INSTRUCTED PT TO CALL FOR ASSISTANCE, VERBALIZES UNDERSTANDING.
--- NOTE | 2021-08-19 18:55 | NUR ---
PT RESTING IN BED NO DISTRESS NOTED, PT IS DROWSY BUT SROUSES TO VERBAL STIMULI, REMAINS ON VAPOTHERM AND TOLERTING WELL;SEE INTERVENTION FOR SETTINGS, NO SOB OR DISTRESS NOTED, PT CALM AT THIS TIME ALTHOUGH HAS ADMITTED ANXIETY ISSUES, DENIES PAIN OR N/V AT THIS TIME, TELE READING SR RATE IN THE 80'S, NO EDEMA NOTED, COMFORT MEASURES PROVIDED, OLD IV SITE REMOVED INTACT W/O INCIDENT, PT HAS NEW SITE IN RFA STARTED TODAY BY PREVIOUS NURSE, CALL WELL WITHIN REACH, PLAN OF CARE FOR SHIFT DISUSSED, WILL CONTINUE TO MONITOR.
--- NOTE | 2021-08-19 21:25 | NUR ---
PT RESTING NO NEW COMPLAINTS OFFERED, CONTINUES TO TOLERATE VAPO THERM W/O INCIDENT, IV ABT INFUSING ORDERED ANDMEDICATED PER ORDERS, PT REPOSITIONS SELF FOR COMFORT, WILL CONTINUE TO MONITOR.
--- NOTE | 2021-08-19 23:00 | NUR ---
PT RESTING WITH EYES CLOSED, NO S.S OF DISTRESS, VAPOTHERM IN PLACE AND TOLERATED WELL, WILL CONTINUE TO MONITOR. ANXIETY WELL CONTROLLED AT THIS TIME.
[2021-08-20] VITALS (18 sets, daily range): BP systolic 126–179; BP diastolic 52–108
--- NOTE | 2021-08-20 00:57 | NUR ---
PT RESTING WITH EYES CLOSED, NO S/S OF DISTRESS, CALL AYALA WITHIN REACH, WILL CONTINUE TO MONITOR.
--- NOTE | 2021-08-20 02:25 | NUR ---
PT RESTING WITH EYES CLSOED, NO S/S OF DISTRESS IVF CONTINUE , CALL YAALA WITHIN REACH. CONTINUES TO TOLERATE VAPO THERM, NO S/S OF DISTRESS OR DISCOMFORT.
--- NOTE | 2021-08-20 04:58 | NUR ---
PT RESTING WITH EYES CLSOED, NO S/S OF DISTRESS IVF CONTINUE , CALL AYALA WITHIN REACH. CONTINUES TO TOLERATE VAPO THERM, NO S/S OF DISTRESS OR DISCOMFORT.
[2021-08-20 05:43] LABS: HEMATOCRIT 35.6 % (37.0-47.0); MEAN CELL VOLUME 97.3 fL CALC (80.0-100.0); MEAN CORPUSCULAR HGB 30.1 pG CALC (26.0-32.0); MEAN CORPUSCULAR HGB CONC 30.9 g/dL CAL (32.0-36.0); RED BLOOD COUNT 3.66 mill/uL (4.20-5.60); RED CELL DISTRI WIDTH 14.7 % (11.5-15.5)
[2021-08-20 06:30] LABS: ANION GAP 9 (6-22 (CALC)); BUN 20 mg/dL (8-23); BUN/CREATININE RATIO 42 (12-20 (CALC)); CARBON DIOXIDE 32 mmol/l (22-30); CHLORIDE 102 mmol/l (95-108); CREATININE 0.5 mg/dL (0.5-1.0); GFR > 60 ML/MIN (>=60 (CALC)); GFR FOR AFR.AMER. > 60 ML/MIN (>=60 (CALC)); MAGNESIUM 1.9 mg/dL (1.6-2.3); POTASSIUM 3.6 mmol/l (3.5-5.1); SODIUM 139 mmol/l (137-146)
--- NOTE | 2021-08-20 08:00 | NUR ---
PT SEEN AWAKE, ALERT, ORIENTED X 3. LUNGS WITH SLIGHT COARSENESS HEARD, USING VAPOTHERM AT 20L, 40%. NO SHORTNESS OF BREATH, PT HAS BEEN TO BSC AND BACK WITH STEADY GAIT.
[2021-08-20] MEDS ORDERED: ZESTRIL40 MG PO (08:27)
--- NOTE | 2021-08-20 10:40 | NUR ---
VAPOTHERM WEANED TO 15L @ 40%. SPOKE WITH PATIENT THAT WE PLAN TO TRANSITION OXYGEN DELIVERY TO A STANDARD HFNC, IF SHE IS TOLERATING THE WEANING ON THE VAPOTHERM. RT/RN TO CONINUE TO ASSESS AND EVALUATE RESPIRATORY STATUS.
--- NOTE | 2021-08-20 11:26 | NUR ---
PT FELT SHORT OF BREATH AND BECAME ANXIOUS. FLOW TURNED UP TO 20L ON VAPOTHERM AND RN IS CHECKING ABOUT GIVING ANTIANXIETY MEDICATION.
--- NOTE | 2021-08-20 12:33 | NUR ---
PT PROVIDED ATIVAN PER ANXIETY. IV HURTS WITH ANYTHING GOING INTO IT, BUT NO SWELLING TO INDICATE INFILTRATION.
--- NOTE | 2021-08-20 12:55 | NUR ---
ATTEMPTING TO DECREASE FLOW ON VAPOTHERM TO 15L AGAIN. ENCOURAGED PT TO REMAIN CALM, AND REASSURED HER THAT O2 SATS WERE MANI GOOD AT 97%.
--- NOTE | 2021-08-20 15:39 | NUR ---
PT WAS DOING WELL ON VAPOTHERM SET TO 15L @ 40% WITH SATS OF 99%. PT WAS TRANSITIONED TO REGULAR HFNC AT 15L INITIALLY. RT REMAINED IN ROOM AND TITRATED LITER FLOW DOWN SLOWLY TO 8L. PT REMAINS WITH SATS OF 95% AT THIS TIME. RT/RN TO CONTINUE TO ASSESS AND WEAN TOLERATED.
--- NOTE | 2021-08-20 15:53 | NUR ---
PT TO BSC BY HERSELF, NO DISTRESS. VAPOTHERM OFF, NOW ON HIFLOW NASAL CANNULA AT 8 LPM.
[2021-08-20 17:30] LABS: URINE BILIRUBIN - DIPSTICK NEGATIVE (NEGATIVE); URINE BLOOD DIPSTICK NEGATIVE (NEGATIVE); URINE COLOR YELLOW; URINE GLUCOSE - DIPSTICK NEGATIVE (NEGATIVE); URINE KETONE NEGATIVE (NEGATIVE); URINE LEUK ESTERASE NEGATIVE (NEGATIVE); URINE PH 6.5 (4.5-8.0); URINE PROTEIN - DIPSTICK NEGATIVE (NEG-TRACE); URINE SPECIFIC GRAVITY 1.025; URINE UROBILINOGEN - DIPSTICK 0.2 E.U./dL (0.2)
[2021-08-20 17:40] LABS: URINE NITRITE - DIPSTICK NEGATIVE (Negative)
--- NOTE | 2021-08-20 18:21 | NUR ---
PT TAKING NAP THIS AFTERNOON, WILL NOT WAKE FOR SUPPER YET. PT WITH VISIT FROM [facility] E[facility] THIS AFTERNOON.
--- NOTE | 2021-08-20 19:30 | NUR ---
awake. watching tv. no distress.
--- NOTE | 2021-08-20 20:40 | NUR ---
awakens easily. no resp diff. o2 cont per 6 l/m hfnc. rt has adjusted liters since this shift began. surveillance monitor shows sinus rhythm hr 80. #20 lfa saline lock. po fluids taken well. voids per bsc. fall precautions cont.
--- NOTE | 2021-08-20 22:00 | NUR ---
eyes closed. no distress.
[2021-08-21] VITALS (9 sets, daily range): BP systolic 126–163; BP diastolic 61–89
--- NOTE | 2021-08-21 00:01 | NUR ---
eyes closed. o2 cont per hfnc. hob remains elevated.
--- NOTE | 2021-08-21 02:00 | NUR ---
resting quietly. resps even & unlabored. no apparent distress.
--- NOTE | 2021-08-21 04:00 | NUR ---
resting quietly. resps even & unlabored. no apparent distress.
--- NOTE | 2021-08-21 06:00 | NUR ---
o2 cont per hfnc. no resp diff this shift.
--- NOTE | 2021-08-21 06:55 | NUR ---
PT SATS WERE 100% ON 6L HFNC. PATIENT WEANED TO 3L. PT STATES SHE WEARS 2-3 LITERS AT HOME.
--- NOTE | 2021-08-21 09:00 | NUR ---
PT SEEN AWAKE, ALERT, ORIENTED X 3. LUNGS WITH SLIGHT WHEEZE, O2 TURNED DOWN TO 4 LPM, SATS 96%. PT SEEN BY DR ACUÑA TODAY, WILL BE HERE ANOTHER NIGHT.
--- NOTE | 2021-08-21 12:18 | NUR ---
PT NOW WITH OXYGEN AT 2 LPM NC. SHE IS ABLE TO GO TO BSC AND BACK WITHOUT ASSIST.
--- NOTE | 2021-08-21 15:13 | NUR ---
PT CONTINUES OOB IN CHAIR, ABLE TO MOVE AROUND ROOM WITHOUT DIFFICULTY. PT REMAINS ON 2 LPM, SATS 95%.
--- NOTE | 2021-08-21 18:29 | NUR ---
PT CONTINUES WELL ON 2 LPM NC, SARTS SEEN IN THE UPPER 90s. PT AWARE OF TRANSFER TO MED/SURG [facility].
--- NOTE | 2021-08-21 19:00 | NUR ---
report given to [facility] nurse per sarah zafar
--- NOTE | 2021-08-21 19:11 | NUR ---
to [facility] 273 per w/c.
--- NOTE | 2021-08-21 19:15 | NUR ---
REPORT GIVEN FROM ANALISA GARCES. PT RECEIVED FROM ICU.
--- NOTE | 2021-08-21 20:00 | NUR ---
PHYSICAL ASSESMENT COMPLETE. PT CURRENTLY DENIES PAIN OR DISCOMFORT. SCHEDULED MEDICATIONS AND PRN MEDICATION ADMINISTERED, SEE E-MAR. PT DENIES ANY NEEDS AT THIS TIME. PLAN OF CARE REVIEWED, PT DENIES QUESTIONS, VERBALIZES UNDERSTANDING. ITEMS WITHIN REACH, BED LOCKED IN LOW POSITION W/ BEDRAILS UP X2. CALL AYALA WITHIN REACH, AGREES TO CALL PRN.
[2021-08-22] VITALS: BP 135/68
--- NOTE | 2021-08-22 03:56 | NUR ---
PT RESTING IN BED, NO SIGNS OF DISTRESS NOTED, RESP EVEN AND UNLABORED. PT VOICES NO NEEDS OR COMPLAINTS AT THIS TIME. CALL LIGHT IN REACH, CONTINUE TO MONITOR.
[2021-08-22 04:00] VITALS: BP 148/72
--- NOTE | 2021-08-22 07:00 | NUR ---
SHIFT CHANGE REPORT, PT AWAKE ALERT AND ORIENTED SITTING UP IN BED, 02 @2.5 [address] NC [address], SOB AT THIS TIME, TELE MONITOR IN PLACE, CALL AYALA IN REACH AND BED IN LOWEST POSITION.
[2021-08-22 08:00] VITALS: BP 151/67
--- NOTE | 2021-08-22 10:34 | NUR ---
MEDICAL TEAM ROUNDED AND DISCUSSED PLAN OF CARE, PP'S QUESTIONS ADDRESSED, WILL CONTINUE TO MONITOR.
[2021-08-22 10:57] VITALS: BP 165/79
--- NOTE | 2021-08-22 12:52 | NUR ---
S- pt without complaints voiced except it was noisy last night and she did not sleep well. 0- Pt initially seen at approx 9 am BP was 177/79, nursing notified and return to see pt around 11 am. Pt BP 163/79, HR 88 02sat 97% on 02. Pt performed 2x10 reps of LE AROM ex in bed. Gait 1 x30 and 1x50 in room with CGA. Pt gait was slow with light touch on objects, which she could walk and demonstrated without light touch. Pt stated it was a habit. Transfer performed indep. Bed mobility was modified indep. Pt required verbal and physical cue for proper execution of activity. HR 88-93, 02 sat after walking 88 with quick recovery back to 93%. Time spent with pt 45 min. A- [facility] 15 home with home health. P- continue per POC to increase mobility with CV monitioring aries 02 sat
[2021-08-22 15:37] VITALS: BP 133/63
--- NOTE | 2021-08-22 16:00 | NUR ---
SLEEPING, BREATHING EVEN AND NON-LABORED BUT SHALLOW, O2 VIA NC IN PLACE, NO SIGN DISTRESS, CALL AYALA IN REACH.
[2021-08-22 18:46] VITALS: BP 126/58
--- NOTE | 2021-08-22 19:45 | NUR ---
ASSEMENT COMPLETED AT THIS TIME.
--- NOTE | 2021-08-22 21:41 | NUR ---
UNABLE TO ADMINISTER MEDICATIONS, IV NON PATENT INFILTRATING.
--- NOTE | 2021-08-23 | NUR ---
PATIENT UP TO THE RESTROOM AT THIS TIME. CALL LIGTH AND BEDSIDE TABLE WITHIN REACH.
[2021-08-23 01:08] VITALS: BP 145/69
[2021-08-23 04:34] VITALS: BP 129/60
--- NOTE | 2021-08-23 04:50 | NUR ---
PATIENT UP TO THE RESTROOM AT THIS TIME. CALL LIGHT AND BEDSIDE TABLE WITHIN REACH.
[2021-08-23 05:50] LABS: HEMATOCRIT 35.7 % (37.0-47.0); MEAN CELL VOLUME 97.3 fL CALC (80.0-100.0); MEAN CORPUSCULAR HGB CONC 30.8 g/dL CAL (32.0-36.0); RED BLOOD COUNT 3.67 mill/uL (4.20-5.60); RED CELL DISTRI WIDTH 14.6 % (11.5-15.5)
[2021-08-23 06:14] LABS: ANION GAP 11 (6-22 (CALC)); BUN 22 mg/dL (8-23); BUN/CREATININE RATIO 44 (12-20 (CALC)); CARBON DIOXIDE 33 mmol/l (22-30); CHLORIDE 98 mmol/l (95-108); CREATININE 0.5 mg/dL (0.5-1.0); GFR > 60 ML/MIN (>=60 (CALC)); GFR FOR AFR.AMER. > 60 ML/MIN (>=60 (CALC)); MAGNESIUM 1.7 mg/dL (1.6-2.3); POTASSIUM 3.6 mmol/l (3.5-5.1); SODIUM 138 mmol/l (137-146)
[2021-08-23 08:00] VITALS: BP 171/81
--- NOTE | 2021-08-23 10:47 | NUR ---
RECEIVE REPORT THIS MORNING FROM AMELIA GARCES. PATIENT STABLE AT THIS TIME, EDUCATED ABOUT NURSING PLAN AND MEDICATIONS. PATIENT REPORT UNDERSTAND. PATIENT SIGN TODAY DNR.
[2021-08-23 10:55] VITALS: BP 148/70
[2021-08-23] MEDS ORDERED: CLARITIN10 M2 PO (11:29)
[2021-08-23] MEDS ORDERED: PREDNISONE10 MG PO (11:29)
[2021-08-23] MEDS ORDERED: SINGULAIR10 MG PO (11:36)
[2021-08-23] MEDS ORDERED: DOXYCYCLINE100 MG PO (11:41)
[2021-08-23] MEDS ORDERED: XANAX0.5 MG PO (11:42)
--- NOTE | 2021-08-23 11:52 | NUR ---
Attempted treatment at 9 am but pt anxious and just had meds given. Returned at 11 am S- pt reported not sleeping well, felt better than earlier today. Pt performed 20 reps of LE ex in supine with min verbal and physical cues for correct execution of ex. She moved with modified indep in bed using bed rails, supine to and from sit indep. Pt gait in room slow with self management of 02 line 2 x 60'. Pt noted to have mild LOB with self correction x 1. BP 147/71, HR 69 to 75, 02sats 95-96%. Pt left resting n bed. Time spent with pt 45 min. A- [facility] 14 home with home health P- will follow until d/leroy.
--- NOTE | 2021-08-23 13:58 | NUR ---
PATIENT DISCHARGED IS EDUCATED ABOUT MEDICACTIONS, APPOIMENTN AND FOLLOW UP. PATIENT REPORT UNDERSTAND.
== END 2021-08-23 13:59 | DRG 190 ==
LOC: ED 10:59 → ED-I 11:40 → ED 12:42 → ICU 12:43 → MS2 08-21 19:15
PROVIDERS: Family Medicine; Nurse Practitioner; ADMIT Hospitalist; ATTEND Hospitalist
PROC: 5A09357 Assistance with Respiratory Ventilation, Less than 24 Consecutive Hours, Continuous Positive Airway Pressure (ICD-10-PCS; principal; 2021-08-16)
DX: J43.9 Emphysema, unspecified (principal); J96.21 Acute and chronic respiratory failure with hypoxia; I10 Essential (primary) hypertension; I25.10 Atherosclerotic heart disease of native coronary artery without angina pectoris; E78.5 Hyperlipidemia, unspecified; K21.9 Gastro-esophageal reflux disease without esophagitis; F41.9 Anxiety disorder, unspecified; R00.0 Tachycardia, unspecified; I25.2 Old myocardial infarction; Z66 Do not resuscitate; Z87.891 Personal history of nicotine dependence; Z99.81 Dependence on supplemental oxygen; Z20.822 Contact with and (suspected) exposure to COVID-19
CPT/HCPCS: J1650; J2060; Q9967

== ENCOUNTER 2022-02-03 10:27 | Observation (INO) | payer MEDICARE ==
[2022-02-03] VITALS (17 sets, daily range): BP systolic 124–186; BP diastolic 55–111
[~2022-02-03] VITALS: Ht 157.5 cm; Wt 43.1 kg
[~2022-02-03 10:27] MED LIST changes: +CLARITIN10 M2 PO; +FLONASE AL50 MCG/ACT NAB; +NITROSTAT0.4 MG SL; +SINGULAIR10 MG PO; +XANAX0.5 MG PO; +ZESTRIL40 MG PO
--- NOTE | 2022-02-03 10:30 | NUR ---
PT TO ROOM VIA WC
[2022-02-03 10:53] LABS: HEMATOCRIT 44.1 % (37.0-47.0); HEMOGLOBIN 13.5 g/dl (12.0-16.0); IMMATURE GRANULOCYTES 0.2 % (0.0-5.0); MEAN CELL VOLUME 92.6 fL CALC (80.0-100.0); MEAN CORPUSCULAR HGB 28.4 pG CALC (26.0-32.0); MEAN CORPUSCULAR HGB CONC 30.6 g/dL CAL (32.0-36.0); NEUT# 7.12 thou/uL (2.00-7.15); RED BLOOD COUNT 4.76 mill/uL (4.20-5.60); RED CELL DISTRI WIDTH 15.9 % (11.5-15.5)
[2022-02-03] MEDS ORDERED: DALIRESP250 MCG PO (10:54)
--- NOTE | 2022-02-03 11:00 | NUR ---
PATIENT REPORTS COUGH AND SOB STARTED THIS AM 4 AM. IS ON 1-2 L OF OXYGEN AT HOME. INCREASED TO 3 L. PATIENT CURRENTLY ON 1.5 L/MIN OF OXYGEN ON NC. NOTED TO HABE RHONCHI AND RALES. HISTORY OF COPD AND COVID X14 DAYS AGO. RT CALLED FOR BREATHING TREATMENTS.
[2022-02-03 11:19] LABS: ALBUMIN 4.7 g/dL (3.2-5.0); ALKALINE PHOSPHATASE 72 u/l (38-126); ANION GAP 14 (6-22 (CALC)); BUN 8 mg/dL (8-23); BUN/CREATININE RATIO 13 (12-20 (CALC)); CARBON DIOXIDE 28 mmol/l (22-30); CHLORIDE 104 mmol/l (95-108); CREATININE 0.6 mg/dL (0.5-1.0); GFR FOR AFR.AMER. > 60 ML/MIN (>=60 (CALC)); GFR OTHER RACES > 60 ML/MIN (>=60 (CALC)); POTASSIUM 3.9 mmol/l (3.5-5.1); SGOT/AST 22 u/l (9-36); SODIUM 142 mmol/l (137-146); TOTAL PROTEIN 7.5 g/dL (6.3-8.2)
--- NOTE | 2022-02-03 11:21 | NUR ---
RT AT BEDSIDE FOR BREATHING TREATMENT
[2022-02-03 11:31] LABS: BILIRUBIN, TOTAL 0.8 mg/dL (0.0-1.4)
--- NOTE | 2022-02-03 12:00 | NUR ---
PATIENT SITTING UP ON STRETCHER AT 90 DEGREE ANGLE FOR COMFORT. SECOND ANTIBIOTIC INFUSING.
--- NOTE | 2022-02-03 13:15 | NUR ---
PATIENT WAITING FOR ADMIT. DENIES ANY NEEDS AT THIS TIME.
--- NOTE | 2022-02-03 14:13 | NUR ---
PATIENT NOTED TO HAVE INCREASED SOB/COUGH. O2 STAT 80 ON 1.5L/MIN OF O2. INCREASE TO 3L/MIN AND DUONEB STARTED. RT PAGED.
--- NOTE | 2022-02-03 14:14 | NUR ---
PATIENT O2 97% DECREASED O2 RATE TO 1.5 L/MIN
--- NOTE | 2022-02-03 14:30 | NUR ---
PATIENT IS A/OX4, ABLE TO MAKE NEEDS KNOWN TO STAFF. C/O OF CHEST PAIN R/T BEING SOB. STATED ITS NORMAL FOR HER. 3M PERRL BILAT EYES. CLEAR SPEECH. 2LO2NC WHEEZES, STATED SHE HAD A BREATHING TREATMENT DOWNSTAIRS BEFORE SHE CAME UP HERE. ACTIVE BOWEL SOUNDS. SOFT NON TENDER ABDOMEN. NO EDEMA PRESENT AT THIS TIME. STRONG PULSES. SAFETY MEASURES IN PLACE. CALL LIGHT IN REACH. VITAL SIGNS ARE STABLE. WILL CONTINUE TO MONITOR PER HOSPITAL'S POLICY.
--- NOTE | 2022-02-03 14:43 | NUR ---
Admission Note Report Given to: MILI TORO Transported by: Wheelchair X Stretcher Transported with: X Nurse Transporter X Patent IV X O2 X Day Care Aide Location: ICU X MS2 PATIENT TO MED SURG WITH PHONE AND HOME MEDS. ANKLET YELLOW. CARE RELINQUISHED.
--- NOTE | 2022-02-03 18:00 | NUR ---
C/O OF A HEADACHE, TYLENOL GIVEN PER REQUEST.
--- NOTE | 2022-02-03 20:00 | NUR ---
PATIENT IN BED WATCHING TV. ASSESMENT COMPLETED. WHEEZING NOTED BILATERAL. PATIENT REQUESTED BREATHING TREATMENT RT NOTIFIED. PT ON 2L OXYGEN VIA NASAL CANNULA. PATIENT REQUESTED IF SHE CAN HAVE HER HOME MEDICATION ROFLUMILAST AND SOME COUGHT MEDICINE DR MARRUFO NOTIFIED AND AGREEE WITH HOME MEDICATION AND ORDER ROBITUSSION FOR COUGH. PT DENIES PAIN AT THIS TIME. CALL LIGHT IN REACH AND BED IN LOEST POSITION.
[2022-02-04] VITALS (7 sets, daily range): BP systolic 127–147; BP diastolic 61–70
--- NOTE | 2022-02-04 00:15 | NUR ---
PATIENT IN BED RESTING WATCHING TV. NO S/S OF DISTRESS NOTERD. PT ASK ME WHAT WHERE HER COVID AND FLU TEST RESULT AND I TOLD HER THEY WERE NEGATIVE. PT HAVE NO MORE FUTHER QUESTIONS CALL LIGHT IN REACH AND BED IN LOWEST POSITION.
--- NOTE | 2022-02-04 04:30 | NUR ---
JILLIAN IN BED AWAKE. PATIENT COMPLAING OF A HEADACHE. MEDICATED PER AUG. NO S/S OF DISTRESS NOTED. CALL LIGHT IN REACH AND BED IN LOWEST POSITION.
[2022-02-04 06:26] LABS: IMMATURE GRANULOCYTES 0.1 % (0.0-5.0); MEAN CELL VOLUME 92.3 fL CALC (80.0-100.0); MEAN CORPUSCULAR HGB 29.5 pG CALC (26.0-32.0); MEAN CORPUSCULAR HGB CONC 31.9 g/dL CAL (32.0-36.0); NEUT# 6.34 thou/uL (2.00-7.15); RED BLOOD COUNT 3.63 mill/uL (4.20-5.60)
[2022-02-04 07:00] LABS: HEMATOCRIT 33.5 % (37.0-47.0); HEMOGLOBIN 10.7 g/dl (12.0-16.0)
--- NOTE | 2022-02-04 07:00 | NUR ---
RECEIVE REPORT FROM CLARITZA LARSEN.
[2022-02-04 07:17] LABS: ALBUMIN 3.8 g/dL (3.2-5.0); ALKALINE PHOSPHATASE 44 u/l (38-126); ANION GAP 14 (6-22 (CALC)); BILIRUBIN, TOTAL 0.5 mg/dL (0.0-1.4); BUN 11 mg/dL (8-23); BUN/CREATININE RATIO 21 (12-20 (CALC)); CARBON DIOXIDE 25 mmol/l (22-30); CHLORIDE 104 mmol/l (95-108); CREATININE 0.5 mg/dL (0.5-1.0); GFR FOR AFR.AMER. > 60 ML/MIN (>=60 (CALC)); GFR OTHER RACES > 60 ML/MIN (>=60 (CALC)); POTASSIUM 3.3 mmol/l (3.5-5.1); SGOT/AST 21 u/l (9-36); SODIUM 139 mmol/l (137-146)
[2022-02-04 07:18] LABS: TOTAL PROTEIN 5.9 g/dL (6.3-8.2)
--- NOTE | 2022-02-04 08:00 | NUR ---
PATIENT ALERT AND ORIENTED X3. VITAL SIGNS STABLE AT HTIS TIME. DOES NOT ACUTE RESPIRATORY DISTRESS AT THIS TIME. PATIENT RESTING PLEASURE IN BED. PT IS EDUCATED ABOUD MEDICATIONS AND NURSING PLAN FOR TODAY. SHE REFER UNDERSTAND. HEAD-TO TOE ASSESSMENT COMPLETE. FALL AND SAFETY PRECAUTIONS IN PLACE. CALL LIGHT IS WITHIN REACH.
[2022-02-04 09:46] LABS: URINE BILIRUBIN - DIPSTICK NEGATIVE (NEGATIVE); URINE BLOOD DIPSTICK NEGATIVE (NEGATIVE); URINE COLOR YELLOW; URINE GLUCOSE - DIPSTICK NEGATIVE (NEGATIVE); URINE KETONE NEGATIVE (NEGATIVE); URINE LEUK ESTERASE NEGATIVE (NEGATIVE); URINE NITRITE - DIPSTICK NEGATIVE (Negative); URINE PROTEIN - DIPSTICK NEGATIVE (NEG-TRACE); URINE SPECIFIC GRAVITY <=1.005; URINE UROBILINOGEN - DIPSTICK 0.2 E.U./dL (0.2)
[2022-02-04] MEDS ORDERED: LEXAPRO10 MG PO (11:19)
[2022-02-04] MEDS ORDERED: XANAX0.5 MG PO (11:19)
--- NOTE | 2022-02-04 12:21 | NUR ---
PATIENT RESTING IN BED. STABLE AT THIS TIME.
[2022-02-04] MEDS ORDERED: NORVASC5 M1 PO (15:49)
[2022-02-04] MEDS ORDERED: IS-ZC 50 50 MG1 TAB PO (15:50)
[2022-02-04] MEDS ORDERED: ELDERBERRY PO (15:51)
[2022-02-04] MEDS ORDERED: VITAMIN B PO (15:51)
[2022-02-04] MEDS ORDERED: MAGNESIUM 250 M1 TAB PO (15:51)
[2022-02-04] MEDS ORDERED: VITAMIN C + PO (15:52)
[2022-02-04] MEDS ORDERED: VITAMIN D PO (15:52)
[2022-02-04] MEDS ORDERED: ALBUTEROL SUL0.083 % IN (15:58)
[2022-02-04] MEDS ORDERED: LOPRESSOR25 M1 PO (15:59)
--- NOTE | 2022-02-04 16:00 | NUR ---
PATIENT RESTING IN BED SLEEPING. STABLE AT THIS TIME.
--- NOTE | 2022-02-04 20:00 | NUR ---
PATIENT SITTING UP IN BED WITH O2 VIA NASAL CANNULA IN PLACE AT 2LPM WITH O2 SAT AT 95%, AWAKE ALERT AND ORIENTEDX3. PATIENT IS O2 DEPENDANT AND HAS O2 AND EQUIPMENT AT HOMEALREADY. OCC COUGH, LUNGS DIMINISHED THROUGHOUT. IVF NS PATENT AND INFUSING VIA RIGHT FOREARM SITE. UP TO THE BR TO VOID AND STATES THAT SHE DID HAVE BM TODAY. SAFETY PRECAUTIONS RFEINFORCED. CALL LIGHT IN REACH. WILL CONT TO MONITOR.
--- NOTE | 2022-02-04 23:00 | NUR ---
RESTING IN BED WITH O2 VIA NASAL CANNULA IN PLACE AT 2LPM.MEDICATED WITH XANAX FOR ANXIETY. IVF NS PATENT AND INFUSING AT 50CC/HR. SAFETY PRECAUTIONS REINFORCED. CALL LIGHT IN REACH. WILL CONT TO MONITOR.
[2022-02-05] VITALS (7 sets, daily range): BP systolic 123–147; BP diastolic 58–76
--- NOTE | 2022-02-05 04:25 | NUR ---
PATIENT POSITIONED ON LEFT SIDE WITH O2 VIA NASAL CANNULA IN PLACE AT 2LPM. EYES ARE CLOSED AND RESPS ARE EVEN AND UNLABORED AT THIS TIME. TELE MONITOR IN PLACE. IVF PATENT AND INFUSING VIA RIGHT FOREARM SITE AT 50CC/HR. CALL LIGHT IN REACH. WILL CONT TO MONITOR.
[2022-02-05 07:30] LABS: BUN 17 mg/dL (8-23); BUN/CREATININE RATIO 21 (12-20 (CALC)); CHLORIDE 105 mmol/l (95-108); CREATININE 0.8 mg/dL (0.5-1.0); GFR FOR AFR.AMER. > 60 ML/MIN (>=60 (CALC)); GFR OTHER RACES > 60 ML/MIN (>=60 (CALC)); SODIUM 142 mmol/l (137-146)
--- NOTE | 2022-02-05 07:40 | NUR ---
PATIENT SLEEPING WHEN I ENTERED THE ROOM. EASILY AROUSABLE. PT EYES EQUAL AND REACTIVE TO LIGHT. MUCUS MEMBRANES MOIST AND PINK. SPEECH CLEAR AND APPROPRIATE. ALERT X3. BREATING IS UNLABORED AND EQUAL. UPPER EXTREMITIES ARE STRONG AND WITHOUT DRIFT. BOWEL SOUNDS ARE ACTIVE IN ALL FOR QUADRANTS. PT IS PASSING GAS. DENIES NEEDING TO USE THE RESTROOM. PT GIVEN FRESH WATER. LOWER EXTREMITIES ARE STRONG, NO EDEMA AND NO DRIFT. PEDIAL PULSES ARE STRONG AND CAP REFILL IN BIG TOES IS BRISK. CALL LIGHT SET RIGHT BESIDE PATIENT. BED SIDE TABLE WITHIN REACH. SIDE RAILS X2. BEDSIDE CLOSE TO BED. BED IN LOWEST POSITION AND WHEELS LOCKED FOR SAFETY.
[2022-02-05 07:45] LABS: MAGNESIUM 1.8 mg/dL (1.6-2.3)
[2022-02-05 07:57] LABS: ANION GAP 11 (6-22 (CALC)); CARBON DIOXIDE 31 mmol/l (22-30); POTASSIUM 4.7 mmol/l (3.5-5.1)
--- NOTE | 2022-02-05 13:00 | NUR ---
PATIENT WAS TRANSFERIHG BACK TO BED FROM BSC. NO COMPLAINTS OF PAIN AT THIS TIME. SOB ON EXCERTION. URINE WAS CLEAR AND YELLOW. BOWEL MOVEMEMT WAS SMALL AND SOFT, NO ODOR NOTED. TELLEY LEADS FIXED AT THIS TIME. PATIENT GOWN CHANGED. CALL LIGHT IN REACH. BSC CLOSE TO BED. BED IN LOWEST POSITION WITH LOCKED WHEELS.
--- NOTE | 2022-02-05 14:36 | NUR ---
PT STATED SHE HAS BEEN TAKING HER HOME MEDICATION TRELEGEY EVERYDAY BETWEEN NOON AND 1PM DAILY. PATIENT STATED MEDICATION WAS KEPT IN HER PURSE BECAUSE SHE DIDNT WANT IT TO GET LOST. PT DIDNT WANT TO SEND MED TO PHARMACY TO GET VERIFIED. SOCIAL STUDIES DEPARTMENT CHAIR INFORMED US THE MEDICATION COULDNT BE ADDED DUE TO ALREADY RECIEVING STERIOD MEDICATIONS. PATIENT INFORMED SHE NEEDED TO CEASE TAKING TRELEGEY AND VERBALIZED UNDERSTANDING. PT KEPT MEDICATION AND REFUSED TO ALLOW IT TO BE KEPT IN MED ROOM.
--- NOTE | 2022-02-05 16:00 | NUR ---
PT RESTING IN BED, NO SIGNS OF DISTRESS. BREATHING EVEN AND UNLABORED. PT STATED HEADACHE WAS BETTER BUT CHRONIC. PT WATCHING TV. IV SITE APPEARS HEALTHY AND IS RUNNING WITH FLUIDS AT 10ML. CALL LIGHT WITHIN REACH, BED IN LOWEST POSITION AND WHEELS LOCKED.
--- NOTE | 2022-02-05 16:15 | NUR ---
PT ADMITTED FROM ER, BROUGHT UP VIA STRETCHER. PATIENT ALERT TO PERSON. ALERT ENOUGH TO UNDERSTAND WHAT YOURE TELLING HER. LUNGS SOUNDS CLEAR AND STRONG. BREATHING EVEN AND UNLABORED. PT HAS BRUISING ON FOREARMS BILATERALLY. BRUSIING ON THE ABDOMEN WELL. BOWEL SOUNDS ACTIVE IN ALL 4 QUADRANTS. NO EDEMA IN EXTREMITIES. PT ORIENTATED TO ROOM. CALL LIGHT AND BED ALARM EXPLAINED TO PT. IV SITE APPEARS HEALTHY AND FLUSHABLE. BED IN LOWEST POSITION WITH WHEELS LOCKED. CALL LIGHT WITHIN REACH.
--- NOTE | 2022-02-05 22:30 | NUR ---
PATIENT RESTING IN BED-MEDICATED WITH XANAX 0.5MG PO FOR ANXIETY AND WITH ROBITUSSIN PO FOR COUGH. O2 VIA NASAL CANNULA IN PLACE AT 2LPM. IVF PATENT AND INFUSING VIA RIGHT AC. SAFETY PRECAUTIONS REINFORED. CALL LIGHT IN REACH. WILL CONT TO MONITOR.
--- NOTE | 2022-02-05 23:51 | NUR ---
PATIENT RESTING IN BED-POSITIONED ON LEFT SIDE. EYES CLOSED AND RESPS ARE EVEN AND UNLABORED. O2 VIA NASAL CANNULA IN PLACE. IVF PATENT AND INFUSING VIA RAC SITE. CALL LIGHT IN REACH. WILL CONT TO MONITOR.
[2022-02-06 00:18] VITALS: BP 125/58
--- NOTE | 2022-02-06 02:28 | NUR ---
PATIENT POSITIONED ON LEFT SIDE WITH O2 VIA NASAL CANNULA IN PLACE AT 2LPM. EYES ARE CLOSED. RESPS ARE EVEN AND UNLABORED. IVF PATENT AND INFUSING VIA RIGHT FOREARM SITE. TELE MONTIOR IN PLACE. CALL LIGHT IN REACH. WILL CONT TO MONITOR
[2022-02-06 04:51] VITALS: BP 130/57
[2022-02-06 04:52] VITALS: BP 130/57
--- NOTE | 2022-02-06 05:35 | NUR ---
PATIENT AWAKE RESTING IN BED WITH O2 VIA NASAL CANNULA IN PLACE. TELE MONITOR IN PLACE WITH LAST READING SR-86. IV SITE TO RIGHT FOREARM LEAKING AND D/C'ED WITH CATH INTACT. NEW IV SITE STARTED TO RIGHT FOREARM-#22 GAUGE WITH GOOD BLOOD RETURN. IVF PATENT AND INFUSING ORDERED. TAKING NEB TREATMENT AT THIS TIME. VOIDING QS CLEAR YELLOW URINE ON BSC. SAFETY PRECAUTIONS REINFORCED. CALL LIGHT IN REACH. WILL CONT TO MONITOR.
[2022-02-06 06:48] VITALS: BP 130/57
--- NOTE | 2022-02-06 08:00 | NUR ---
RECEIVED REPORT FROM PLATE SHEAR OPERATOR RN. PATIENT RESITING IN BED IN LOW SEMI-JACOBSEN'S POSITION WITH EYES CLOSED. PATIENT IS ALERT AND ORIENTED. ABLE TO MAKE NEEDS KNOWN, DENIES ANY PAIN OR DISCOMFORT AT THIS TIME. ASSESSMENT COMPLETED. BED IN LOWEST POSTION, CALL LIGHT WITHIN REACH. FALL AND SAFETY PRECAUTIONS IN PLACE.
[2022-02-06 10:56] VITALS: BP 133/74
--- NOTE | 2022-02-06 11:58 | NUR ---
PATIENT IS RESTING IN BE WITH EYES CLOSED IN SEMI-JACOBSEN'S POSITION. DENIES PAIN AT THIS TIME. BED IN LOWEST POSITION, CALL LIGHT WITHIN REACH.
[2022-02-06] MEDS ORDERED: PREDNISONE10 MG PO (12:29)
[2022-02-06] MEDS ORDERED: VIBRAMYCIN100 M2 PO (12:29)
--- NOTE | 2022-02-06 12:56 | NUR ---
PT GOING HOME. DOESN'T WANT TX AT THIS TIME.
[2022-02-06] MEDS ORDERED: ALBUTEROL SUL0.083 % NEB (14:30)
== END 2022-02-06 15:02 | disposition home or self-care (01) ==
LOC: ED 10:27 → ED-I 11:56 → ED 12:09 → MS2 12:10
PROVIDERS: Family Medicine; Internal Medicine; ADMIT Internal Medicine; ATTEND Internal Medicine
DX: J44.1 Chronic obstructive pulmonary disease with (acute) exacerbation (principal); J96.21 Acute and chronic respiratory failure with hypoxia; I10 Essential (primary) hypertension; I25.10 Atherosclerotic heart disease of native coronary artery without angina pectoris; E78.5 Hyperlipidemia, unspecified; F41.9 Anxiety disorder, unspecified; I25.2 Old myocardial infarction; Z86.16 Personal history of COVID-19; Z99.81 Dependence on supplemental oxygen; Z20.822 Contact with and (suspected) exposure to COVID-19
CPT/HCPCS: G0378; J1650

== ENCOUNTER 2022-02-10 11:07 | Inpatient (IN) | payer MEDICARE ==
[~2022-02-10] VITALS: Ht 157.5 cm; Wt 44.0 kg
[2022-02-10] VITALS (14 sets, daily range): BP systolic 100–216; BP diastolic 70–135
[~2022-02-10 11:07] MED LIST changes: +ALBUTEROL SUL0.083 % NEB; +DALIRESP250 MCG PO; +ELDERBERRY PO; +IS-ZC 50 50 MG1 TAB PO; +MAGNESIUM 250 M1 TAB PO; +NORVASC5 M1 PO; +VIBRAMYCIN100 M2 PO; +VITAMIN B PO; +VITAMIN C + PO; +VITAMIN D PO
[2022-02-10 11:37] LABS: IMMATURE GRANULOCYTES 1.7 % (0.0-5.0); MEAN CELL VOLUME 93.4 fL CALC (80.0-100.0); MEAN CORPUSCULAR HGB 29.1 pG CALC (26.0-32.0); MEAN CORPUSCULAR HGB CONC 31.1 g/dL CAL (32.0-36.0); NEUT# 9.46 thou/uL (2.00-7.15); RED BLOOD COUNT 4.37 mill/uL (4.20-5.60); RED CELL DISTRI WIDTH 15.9 % (11.5-15.5)
[2022-02-10 11:46] LABS: HEMATOCRIT 40.8 % (37.0-47.0); HEMOGLOBIN 12.7 g/dl (12.0-16.0)
[2022-02-10 11:54] LABS: ALBUMIN 4.5 g/dL (3.2-5.0); ALKALINE PHOSPHATASE 31 u/l (38-126); ANION GAP 14 (6-22 (CALC)); BILIRUBIN, TOTAL 0.7 mg/dL (0.0-1.4); BUN 21 mg/dL (8-23); BUN/CREATININE RATIO 38 (12-20 (CALC)); CARBON DIOXIDE 31 mmol/l (22-30); CHLORIDE 103 mmol/l (95-108); CREATININE 0.6 mg/dL (0.5-1.0); GFR FOR AFR.AMER. > 60 ML/MIN (>=60 (CALC)); GFR OTHER RACES > 60 ML/MIN (>=60 (CALC)); POTASSIUM 4.7 mmol/l (3.5-5.1); SGOT/AST 35 u/l (9-36); SODIUM 143 mmol/l (137-146)
[2022-02-11] VITALS (8 sets, daily range): BP systolic 142–205; BP diastolic 62–85
[2022-02-12] VITALS (7 sets, daily range): BP systolic 143–155; BP diastolic 66–74
[2022-02-13] VITALS (9 sets, daily range): BP systolic 136–160; BP diastolic 65–84
[2022-02-13 05:29] LABS: MEAN CELL VOLUME 95.5 fL CALC (80.0-100.0); MEAN CORPUSCULAR HGB 29.5 pG CALC (26.0-32.0); MEAN CORPUSCULAR HGB CONC 30.9 g/dL CAL (32.0-36.0); RED BLOOD COUNT 3.56 mill/uL (4.20-5.60); RED CELL DISTRI WIDTH 16.1 % (11.5-15.5)
[2022-02-13 05:37] LABS: HEMOGLOBIN 10.5 g/dl (12.0-16.0)
[2022-02-13 05:40] LABS: ANION GAP 11 (6-22 (CALC)); BUN 27 mg/dL (8-23); BUN/CREATININE RATIO 48 (12-20 (CALC)); CARBON DIOXIDE 35 mmol/l (22-30); CHLORIDE 98 mmol/l (95-108); CREATININE 0.6 mg/dL (0.5-1.0); GFR FOR AFR.AMER. > 60 ML/MIN (>=60 (CALC)); GFR OTHER RACES > 60 ML/MIN (>=60 (CALC)); POTASSIUM 4.8 mmol/l (3.5-5.1); SODIUM 139 mmol/l (137-146)
[2022-02-14] VITALS (7 sets, daily range): BP systolic 143–166; BP diastolic 61–71
[2022-02-15] VITALS (8 sets, daily range): BP systolic 138–182; BP diastolic 69–92
[2022-02-16] VITALS (8 sets, daily range): BP systolic 116–173; BP diastolic 61–95
[2022-02-17] VITALS (7 sets, daily range): BP systolic 131–210; BP diastolic 62–113
[2022-02-17 05:41] LABS: HEMATOCRIT 35.3 % (37.0-47.0); HEMOGLOBIN 10.9 g/dl (12.0-16.0); MEAN CELL VOLUME 96.4 fL CALC (80.0-100.0); MEAN CORPUSCULAR HGB 29.8 pG CALC (26.0-32.0); MEAN CORPUSCULAR HGB CONC 30.9 g/dL CAL (32.0-36.0); RED BLOOD COUNT 3.66 mill/uL (4.20-5.60); RED CELL DISTRI WIDTH 16.7 % (11.5-15.5)
[2022-02-17 06:12] LABS: ANION GAP 11 (6-22 (CALC)); BUN 27 mg/dL (8-23); BUN/CREATININE RATIO 48 (12-20 (CALC)); CARBON DIOXIDE 32 mmol/l (22-30); CHLORIDE 102 mmol/l (95-108); CREATININE 0.6 mg/dL (0.5-1.0); GFR FOR AFR.AMER. > 60 ML/MIN (>=60 (CALC)); GFR OTHER RACES > 60 ML/MIN (>=60 (CALC)); MAGNESIUM 2.2 mg/dL (1.6-2.3); SODIUM 141 mmol/l (137-146)
[2022-02-18 00:05] VITALS: BP 128/54
[2022-02-18 04:20] VITALS: BP 132/54
[2022-02-18 06:43] VITALS: BP 123/48
[2022-02-18 10:58] VITALS: BP 138/68
[2022-02-18] MEDS ORDERED: DILTIAZEM HCL180 MG PO (12:16)
[2022-02-18] MEDS ORDERED: PREDNISONE10 MG PO (12:16)
[2022-02-18] MEDS ORDERED: TRAMADOL HCL50 MG PO (12:16)
[2022-02-18] MEDS ORDERED: XANAX0.5 MG PO (12:16)
[2022-02-18] MEDS ORDERED: VIBRAMYCIN100 M2 PO (12:16)
== END 2022-02-18 16:45 | DRG 190 ==
LOC: ED 11:07 → ED-I 12:15 → ED 12:30 → MS2 12:31
PROVIDERS: Family Medicine; ADMIT Internal Medicine; ATTEND Internal Medicine
DX: J44.1 Chronic obstructive pulmonary disease with (acute) exacerbation (principal); J96.21 Acute and chronic respiratory failure with hypoxia; Z68.1 Body mass index [BMI] 19.9 or less, adult; I10 Essential (primary) hypertension; R63.6 Underweight; E78.5 Hyperlipidemia, unspecified; I25.10 Atherosclerotic heart disease of native coronary artery without angina pectoris; F41.0 Panic disorder [episodic paroxysmal anxiety]; I25.2 Old myocardial infarction; Z99.81 Dependence on supplemental oxygen; Z87.891 Personal history of nicotine dependence; Z20.822 Contact with and (suspected) exposure to COVID-19
CPT/HCPCS: G0378; J0692; J2060; J3370

== ENCOUNTER 2022-02-20 12:15 | Inpatient (IN) | payer MEDICARE ==
[~2022-02-20] VITALS: Ht 157.5 cm; Wt 50.0 kg
[2022-02-20] VITALS (32 sets, daily range): BP systolic 86–151; BP diastolic 44–108
[~2022-02-20 12:15] MED LIST changes: +DILTIAZEM HCL180 MG PO
[2022-02-20 13:19] LABS: IMMATURE GRANULOCYTES 3.2 % (0.0-5.0); MEAN CELL VOLUME 95.5 fL CALC (80.0-100.0); MEAN CORPUSCULAR HGB 29.2 pG CALC (26.0-32.0); MEAN CORPUSCULAR HGB CONC 30.6 g/dL CAL (32.0-36.0); NEUT# 21.19 thou/uL (2.00-7.15); RED BLOOD COUNT 4.86 mill/uL (4.20-5.60); RED CELL DISTRI WIDTH 16.8 % (11.5-15.5)
[2022-02-20 13:20] LABS: HEMATOCRIT 46.4 % (37.0-47.0); HEMOGLOBIN 14.2 g/dl (12.0-16.0)
[2022-02-20 13:32] LABS: ALBUMIN 4.6 g/dL (3.2-5.0); ANION GAP 13 (6-22 (CALC)); BUN 25 mg/dL (8-23); BUN/CREATININE RATIO 43 (12-20 (CALC)); CARBON DIOXIDE 32 mmol/l (22-30); CHLORIDE 97 mmol/l (95-108); CREATININE 0.6 mg/dL (0.5-1.0); GFR FOR AFR.AMER. > 60 ML/MIN (>=60 (CALC)); GFR OTHER RACES > 60 ML/MIN (>=60 (CALC)); POTASSIUM 4.2 mmol/l (3.5-5.1); SGOT/AST 31 u/l (9-36); SODIUM 137 mmol/l (137-146); TOTAL PROTEIN 7.2 g/dL (6.3-8.2)
[2022-02-20 13:35] LABS: ALKALINE PHOSPHATASE 65 u/l (38-126); BILIRUBIN, TOTAL 1.5 mg/dL (0.0-1.4)
[2022-02-21] VITALS (15 sets, daily range): BP systolic 97–145; BP diastolic 49–100
[2022-02-21 07:35] LABS: URINE BILIRUBIN - DIPSTICK NEGATIVE (NEGATIVE); URINE COLOR YELLOW; URINE GLUCOSE - DIPSTICK NEGATIVE (NEGATIVE); URINE KETONE TRACE mg/dL (NEGATIVE); URINE LEUK ESTERASE TRACE (NEGATIVE); URINE PROTEIN - DIPSTICK TRACE mg/dL (NEG-TRACE); URINE SPECIFIC GRAVITY >=1.030; URINE UROBILINOGEN - DIPSTICK 0.2 E.U./dL (0.2)
[2022-02-21 07:41] LABS: URINE BLOOD DIPSTICK NEGATIVE (NEGATIVE); URINE NITRITE - DIPSTICK NEGATIVE (Negative); URINE RBC 0-2 RBC/hpf (0-5)
[2022-02-21 07:42] LABS: URINE WBC 0-2 WBC/hpf (0-5)
[2022-02-21 08:09] LABS: MEAN CELL VOLUME 96.4 fL CALC (80.0-100.0); MEAN CORPUSCULAR HGB 29.6 pG CALC (26.0-32.0); MEAN CORPUSCULAR HGB CONC 30.7 g/dL CAL (32.0-36.0); RED BLOOD COUNT 3.92 mill/uL (4.20-5.60)
[2022-02-21 08:13] LABS: HEMATOCRIT 37.8 % (37.0-47.0); HEMOGLOBIN 11.6 g/dl (12.0-16.0)
[2022-02-21 08:35] LABS: ALBUMIN 3.9 g/dL (3.2-5.0); ALKALINE PHOSPHATASE 48 u/l (38-126); BILIRUBIN, TOTAL 1.1 mg/dL (0.0-1.4); BUN 25 mg/dL (8-23); BUN/CREATININE RATIO 43 (12-20 (CALC)); CARBON DIOXIDE 30 mmol/l (22-30); CHLORIDE 104 mmol/l (95-108); CREATININE 0.6 mg/dL (0.5-1.0); GFR FOR AFR.AMER. > 60 ML/MIN (>=60 (CALC)); GFR OTHER RACES > 60 ML/MIN (>=60 (CALC)); SGOT/AST 26 u/l (9-36); SODIUM 139 mmol/l (137-146)
[2022-02-21 08:37] LABS: ANION GAP 9 (6-22 (CALC)); POTASSIUM 4.2 mmol/l (3.5-5.1)
[2022-02-22] VITALS (25 sets, daily range): BP systolic 122–160; BP diastolic 63–91
[2022-02-22 05:33] LABS: HEMATOCRIT 33.8 % (37.0-47.0); HEMOGLOBIN 10.3 g/dl (12.0-16.0); IMMATURE GRANULOCYTES 1.3 % (0.0-5.0); MEAN CELL VOLUME 96.3 fL CALC (80.0-100.0); MEAN CORPUSCULAR HGB 29.3 pG CALC (26.0-32.0); MEAN CORPUSCULAR HGB CONC 30.5 g/dL CAL (32.0-36.0); NEUT# 17.43 thou/uL (2.00-7.15); RED BLOOD COUNT 3.51 mill/uL (4.20-5.60); RED CELL DISTRI WIDTH 16.9 % (11.5-15.5)
[2022-02-22 06:05] LABS: ALBUMIN 3.3 g/dL (3.2-5.0); ALKALINE PHOSPHATASE 43 u/l (38-126); ANION GAP 7 (6-22 (CALC)); BUN 29 mg/dL (8-23); BUN/CREATININE RATIO 49 (12-20 (CALC)); CARBON DIOXIDE 32 mmol/l (22-30); CHLORIDE 106 mmol/l (95-108); CREATININE 0.6 mg/dL (0.5-1.0); GFR FOR AFR.AMER. > 60 ML/MIN (>=60 (CALC)); GFR OTHER RACES > 60 ML/MIN (>=60 (CALC)); MAGNESIUM 2.3 mg/dL (1.6-2.3); POTASSIUM 4.3 mmol/l (3.5-5.1); SGOT/AST 21 u/l (9-36); SODIUM 141 mmol/l (137-146)
[2022-02-22 06:09] LABS: BILIRUBIN, TOTAL 0.5 mg/dL (0.0-1.4)
[2022-02-23] VITALS (24 sets, daily range): BP systolic 128–166; BP diastolic 66–90
[2022-02-23 05:02] LABS: HEMATOCRIT 30.3 % (37.0-47.0); HEMOGLOBIN 9.3 g/dl (12.0-16.0); MEAN CELL VOLUME 96.8 fL CALC (80.0-100.0); MEAN CORPUSCULAR HGB 29.7 pG CALC (26.0-32.0); MEAN CORPUSCULAR HGB CONC 30.7 g/dL CAL (32.0-36.0); NEUT# 16.33 thou/uL (2.00-7.15); RED BLOOD COUNT 3.13 mill/uL (4.20-5.60); RED CELL DISTRI WIDTH 16.9 % (11.5-15.5)
[2022-02-23 05:16] LABS: ANION GAP 8 (6-22 (CALC)); BUN 31 mg/dL (8-23); BUN/CREATININE RATIO 60 (12-20 (CALC)); CARBON DIOXIDE 34 mmol/l (22-30); CHLORIDE 104 mmol/l (95-108); CREATININE 0.5 mg/dL (0.5-1.0); GFR FOR AFR.AMER. > 60 ML/MIN (>=60 (CALC)); GFR OTHER RACES > 60 ML/MIN (>=60 (CALC)); MAGNESIUM 2.2 mg/dL (1.6-2.3); POTASSIUM 4.2 mmol/l (3.5-5.1); SODIUM 141 mmol/l (137-146)
[2022-02-24] VITALS (24 sets, daily range): BP systolic 128–163; BP diastolic 69–107
[2022-02-24 05:31] LABS: HEMATOCRIT 29.4 % (37.0-47.0); HEMOGLOBIN 9.5 g/dl (12.0-16.0); IMMATURE GRANULOCYTES 3.6 % (0.0-5.0); MEAN CELL VOLUME 93.9 fL CALC (80.0-100.0); MEAN CORPUSCULAR HGB 30.4 pG CALC (26.0-32.0); MEAN CORPUSCULAR HGB CONC 32.3 g/dL CAL (32.0-36.0); NEUT# 18.01 thou/uL (2.00-7.15); RED BLOOD COUNT 3.13 mill/uL (4.20-5.60); RED CELL DISTRI WIDTH 16.3 % (11.5-15.5)
[2022-02-24 05:46] LABS: ANION GAP 7 (6-22 (CALC)); BUN 23 mg/dL (8-23); BUN/CREATININE RATIO 53 (12-20 (CALC)); CARBON DIOXIDE 34 mmol/l (22-30); CHLORIDE 101 mmol/l (95-108); CREATININE 0.4 mg/dL (0.5-1.0); GFR FOR AFR.AMER. > 60 ML/MIN (>=60 (CALC)); GFR OTHER RACES > 60 ML/MIN (>=60 (CALC)); MAGNESIUM 2.1 mg/dL (1.6-2.3); SODIUM 138 mmol/l (137-146)
[2022-02-25] VITALS (24 sets, daily range): BP systolic 120–152; BP diastolic 63–121
[2022-02-25 05:20] LABS: HEMATOCRIT 30.7 % (37.0-47.0); HEMOGLOBIN 9.9 g/dl (12.0-16.0); IMMATURE GRANULOCYTES 4.9 % (0.0-5.0); MEAN CELL VOLUME 92.7 fL CALC (80.0-100.0); MEAN CORPUSCULAR HGB 29.9 pG CALC (26.0-32.0); MEAN CORPUSCULAR HGB CONC 32.2 g/dL CAL (32.0-36.0); NEUT# 17.14 thou/uL (2.00-7.15); RED BLOOD COUNT 3.31 mill/uL (4.20-5.60); RED CELL DISTRI WIDTH 16.2 % (11.5-15.5)
[2022-02-25 05:35] LABS: ANION GAP 7 (6-22 (CALC)); BUN 22 mg/dL (8-23); BUN/CREATININE RATIO 49 (12-20 (CALC)); CARBON DIOXIDE 36 mmol/l (22-30); CHLORIDE 98 mmol/l (95-108); CREATININE 0.5 mg/dL (0.5-1.0); GFR FOR AFR.AMER. > 60 ML/MIN (>=60 (CALC)); GFR OTHER RACES > 60 ML/MIN (>=60 (CALC)); MAGNESIUM 2.1 mg/dL (1.6-2.3); POTASSIUM 3.9 mmol/l (3.5-5.1); SODIUM 137 mmol/l (137-146)
[2022-02-26] VITALS (24 sets, daily range): BP systolic 113–156; BP diastolic 62–94
[2022-02-26] MEDS ORDERED: XARELTO15 MG PO (09:42)
[2022-02-26] MEDS ORDERED: CARDIZEM CD240 MG PO (09:43)
[2022-02-26] MEDS ORDERED: PREDNISONE10 MG PO (09:47)
[2022-02-26] MEDS ORDERED: TRAMADOL HCL50 MG PO (09:48)
[2022-02-26] MEDS ORDERED: VITAMIN D1000 UNIT PO (09:48)
[2022-02-26] MEDS ORDERED: XANAX0.5 MG PO (09:48)
[2022-02-27] VITALS (12 sets, daily range): BP systolic 116–154; BP diastolic 67–93
== END 2022-02-27 11:10 | DRG 190 ==
LOC: ED 12:15 → ED-I 13:50 → ED 14:14 → ICU 14:15
PROVIDERS: Family Medicine; Internal Medicine; ADMIT Internal Medicine; ATTEND Internal Medicine
PROC: 5A09357 Assistance with Respiratory Ventilation, Less than 24 Consecutive Hours, Continuous Positive Airway Pressure (ICD-10-PCS; principal; 2022-02-20)
DX: J44.1 Chronic obstructive pulmonary disease with (acute) exacerbation (principal); J96.21 Acute and chronic respiratory failure with hypoxia; J96.22 Acute and chronic respiratory failure with hypercapnia; I10 Essential (primary) hypertension; I48.91 Unspecified atrial fibrillation; I25.10 Atherosclerotic heart disease of native coronary artery without angina pectoris; E78.5 Hyperlipidemia, unspecified; F41.9 Anxiety disorder, unspecified; R63.6 Underweight; I25.2 Old myocardial infarction; Z68.20 Body mass index [BMI] 20.0-20.9, adult; Z99.81 Dependence on supplemental oxygen; Z87.891 Personal history of nicotine dependence; Z20.822 Contact with and (suspected) exposure to COVID-19
CPT/HCPCS: J1650

== ENCOUNTER 2022-03-29 12:42 | Inpatient (IN) | payer MEDICARE ==
[~2022-03-29] VITALS: Ht 157.5 cm; Wt 44.5 kg
[2022-03-29] VITALS (23 sets, daily range): BP systolic 106–148; BP diastolic 41–95
[~2022-03-29 12:42] MED LIST changes: +CARDIZEM CD240 MG PO; +VITAMIN D1000 UNIT PO; +XARELTO15 MG PO
--- NOTE | 2022-03-29 12:45 | NUR ---
IN ROOM VIA EMS
[2022-03-29 13:44] LABS: HEMATOCRIT 26.2 % (37.0-47.0); IMMATURE GRANULOCYTES 1.9 % (0.0-5.0); MEAN CORPUSCULAR HGB 29.9 pG CALC (26.0-32.0); MEAN CORPUSCULAR HGB CONC 29.8 g/dL CAL (32.0-36.0); NEUT# 9.43 thou/uL (2.00-7.15); RED BLOOD COUNT 2.61 mill/uL (4.20-5.60); RED CELL DISTRI WIDTH 17.7 % (11.5-15.5)
[2022-03-29 13:47] LABS: HEMOGLOBIN 7.8 g/dl (12.0-16.0); MEAN CELL VOLUME 100.4 fL CALC (80.0-100.0)
[2022-03-29 13:48] LABS: ALBUMIN 3.4 g/dL (3.2-5.0); BILIRUBIN, TOTAL 0.7 mg/dL (0.0-1.4); BUN 10 mg/dL (8-23); BUN/CREATININE RATIO 16 (12-20 (CALC)); CHLORIDE 102 mmol/l (95-108); CREATININE 0.6 mg/dL (0.5-1.0); GFR FOR AFR.AMER. > 60 ML/MIN (>=60 (CALC)); GFR OTHER RACES > 60 ML/MIN (>=60 (CALC)); POTASSIUM 3.7 mmol/l (3.5-5.1); SODIUM 136 mmol/l (137-146)
[2022-03-29 13:49] LABS: ALKALINE PHOSPHATASE 65 u/l (38-126); ANION GAP 14 (6-22 (CALC)); CARBON DIOXIDE 24 mmol/l (22-30); SGOT/AST 50 u/l (9-36); TOTAL PROTEIN 6.3 g/dL (6.3-8.2)
--- NOTE | 2022-03-29 13:50 | NUR ---
Reassessment of patient completed. No distress noted.
--- NOTE | 2022-03-29 14:50 | NUR ---
Reassessment of patient completed. No distress noted PT IS RESTING
--- NOTE | 2022-03-29 16:00 | NUR ---
Reassessment of patient completed. No distress noted WARM BLANKET GIVEN TO PT
--- NOTE | 2022-03-29 17:15 | NUR ---
PT IS ADMITTED TO [facility]. REPORT GIVEN TO NURSE SANDOVAL
--- NOTE | 2022-03-29 17:15 | NUR ---
PT IS TRANSPORTED TO [facility] VIA WHEELCHAIR AND IS ON A TELE.
--- NOTE | 2022-03-29 20:40 | NUR ---
PT IN BED RESTING WITH EYES CLOSED BREARTING EVEN AND UNLABORED. NO S/S OF DOSTRESS NOTED. PT AWAKEN TO COMPLETE ASSESSMENT. PT DENIES PAIN AT THIS TIME PUT REQUESTED A XANAX BEFORE BED TIME. NOTIFIED. PT ON TELE. CALL LIGHT IN REACH AND BED IN LOWEST POSITION.
[2022-03-30] VITALS (10 sets, daily range): BP systolic 105–122; BP diastolic 44–64
--- NOTE | 2022-03-30 00:20 | NUR ---
PT IN BED RESTING WITH EYES CLOSED BREATHING EVEN AND UNLABORED. NO S/S OF DISTRESS NOTED. CALL LIGHT IN REACH AND BED IN LOWEST POSITION.
--- NOTE | 2022-03-30 04:35 | NUR ---
PT IN BED RESTING WITH EYES CLSOED BREATHING WEVEN AND UNLABORED. NO S/S OF DISTRESS NOTED. CALL LIGHT IN REACH AND BED IN LOWEST POSITION
[2022-03-30 05:24] LABS: ALBUMIN 3.1 g/dL (3.2-5.0); ALKALINE PHOSPHATASE 57 u/l (38-126); BUN 13 mg/dL (8-23); BUN/CREATININE RATIO 24 (12-20 (CALC)); CHLORIDE 102 mmol/l (95-108); CREATININE 0.5 mg/dL (0.5-1.0); GFR FOR AFR.AMER. > 60 ML/MIN (>=60 (CALC)); GFR OTHER RACES > 60 ML/MIN (>=60 (CALC)); MAGNESIUM 1.9 mg/dL (1.6-2.3); SGOT/AST 21 u/l (9-36); SODIUM 139 mmol/l (137-146); TOTAL PROTEIN 5.6 g/dL (6.3-8.2)
[2022-03-30 05:38] LABS: ANION GAP 10 (6-22 (CALC)); BILIRUBIN, TOTAL 0.2 mg/dL (0.0-1.4); CARBON DIOXIDE 31 mmol/l (22-30)
[2022-03-30 05:45] LABS: HEMATOCRIT 23.3 % (37.0-47.0); HEMOGLOBIN 7.1 g/dl (12.0-16.0); IMMATURE GRANULOCYTES 2.5 % (0.0-5.0); MEAN CELL VOLUME 97.5 fL CALC (80.0-100.0); MEAN CORPUSCULAR HGB 29.7 pG CALC (26.0-32.0); MEAN CORPUSCULAR HGB CONC 30.5 g/dL CAL (32.0-36.0); NEUT# 3.85 thou/uL (2.00-7.15); RED BLOOD COUNT 2.39 mill/uL (4.20-5.60); RED CELL DISTRI WIDTH 17.2 % (11.5-15.5)
--- NOTE | 2022-03-30 08:00 | NUR ---
GOT REPORT FROM MEDICAL AFFAIRS DIRECTOR NURSE. PATIENT ASSESSED. PATIENT IS SITTING UP EATING BF AND WATCHING TV. PATIENT HAS NO COMPLAINTS AT THIS TIME. FALL PRECAUTIONS ARE IN PLACE. CALL LIGHT AND BEDSIDE TABLE WITH IN REACH. ADVISED TO CALL IS NEEDING ANYTHING. PATIENT VERBALIZED UNDERSTANDING.
--- NOTE | 2022-03-30 12:00 | NUR ---
PATIENT IS SITTING IN BED RESTING WATCHING TV. PATIENT DENIES ANY DISCOMFORT OR CONCERNS. NO SXS OF ANY DISTRESS. FALL PRECAUTIONS ARE IN PLACE. CALL LIGHT AND BEDSIDE TABLE WITHIN REACH OF PATIENT. ADVISED TO CALL IF NEEDING ANYTHING. PATIENT VERBALIZED UNDERSTANDING.
--- NOTE | 2022-03-30 20:50 | NUR ---
PT IN BED WATCHING TV, NO S/S OF DISTRES NOTED. ASSEMENT CLOMPLETED. CALL LIGHT IN REACH.
[2022-03-31 00:13] VITALS: BP 110/55
--- NOTE | 2022-03-31 00:15 | NUR ---
PT IN BED RESTING WITH EYES CLOSED BREATHING EVEN AND UNLABORED. NO S/S OF DISTRESS NOTED. CALL LIGHT IN REACH AND BED IN LOWEST POSITION.
[2022-03-31 04:09] VITALS: BP 124/56
--- NOTE | 2022-03-31 04:10 | NUR ---
PT IN BED RESTING WITH EYES CLSOED BREATHING EVEN AND UNLABORED. NO S/S OF DISTRESS NOTED. CALL LIGHT IN REACH AND BED IN LOWEST POSITION.
[2022-03-31 05:14] LABS: HEMATOCRIT 25.2 % (37.0-47.0); HEMOGLOBIN 7.8 g/dl (12.0-16.0); MEAN CELL VOLUME 94.7 fL CALC (80.0-100.0); MEAN CORPUSCULAR HGB 29.3 pG CALC (26.0-32.0); RED BLOOD COUNT 2.66 mill/uL (4.20-5.60); RED CELL DISTRI WIDTH 18.8 % (11.5-15.5)
[2022-03-31 05:27] LABS: ANION GAP 12 (6-22 (CALC)); BUN 19 mg/dL (8-23); BUN/CREATININE RATIO 27 (12-20 (CALC)); CARBON DIOXIDE 33 mmol/l (22-30); CHLORIDE 101 mmol/l (95-108); CREATININE 0.7 mg/dL (0.5-1.0); GFR FOR AFR.AMER. > 60 ML/MIN (>=60 (CALC)); GFR OTHER RACES > 60 ML/MIN (>=60 (CALC)); POTASSIUM 4.1 mmol/l (3.5-5.1); SODIUM 142 mmol/l (137-146)
[2022-03-31 06:12] VITALS: BP 120/78
--- NOTE | 2022-03-31 09:34 | NUR ---
Dr Machado at bedside for assessment and discussion of POC
[2022-03-31 11:10] VITALS: BP 124/61
[2022-03-31 16:19] VITALS: BP 125/67
[2022-03-31 19:07] VITALS: BP 133/70
[2022-04-01 00:11] VITALS: BP 125/60
[2022-04-01 04:21] VITALS: BP 127/67
[2022-04-01 05:39] LABS: HEMATOCRIT 25.5 % (37.0-47.0); HEMOGLOBIN 7.7 g/dl (12.0-16.0); MEAN CELL VOLUME 97.7 fL CALC (80.0-100.0); MEAN CORPUSCULAR HGB 29.5 pG CALC (26.0-32.0); MEAN CORPUSCULAR HGB CONC 30.2 g/dL CAL (32.0-36.0); RED BLOOD COUNT 2.61 mill/uL (4.20-5.60)
[2022-04-01 06:06] LABS: ANION GAP 12 (6-22 (CALC)); BUN 20 mg/dL (8-23); BUN/CREATININE RATIO 33 (12-20 (CALC)); CARBON DIOXIDE 32 mmol/l (22-30); CHLORIDE 104 mmol/l (95-108); CREATININE 0.6 mg/dL (0.5-1.0); GFR FOR AFR.AMER. > 60 ML/MIN (>=60 (CALC)); GFR OTHER RACES > 60 ML/MIN (>=60 (CALC)); MAGNESIUM 1.9 mg/dL (1.6-2.3); POTASSIUM 4.1 mmol/l (3.5-5.1); SODIUM 144 mmol/l (137-146)
[2022-04-01 06:10] VITALS: BP 128/51
[2022-04-01 12:04] VITALS: BP 131/66
--- NOTE | 2022-04-01 14:37 | NUR ---
Attempted treatmen at 1410 today, she reported being SOB after resp breathing treatment. Pt noted to have RR of 27, 02sats 96%, BP 137/63, HR 95. Pt nurse was notified and in to see pt.
[2022-04-01 16:25] VITALS: BP 125/60
[2022-04-01 19:13] VITALS: BP 143/73
--- NOTE | 2022-04-01 19:25 | NUR ---
Reort received from off going RN. Pt received in bed. No noted complaints. Will continue to monitor.
--- NOTE | 2022-04-01 22:51 | NUR ---
New IV started to Left hand x1 attempt with number #20 gauge cannula. Pt tolerated same well.
[2022-04-02 00:13] VITALS: BP 135/66
--- NOTE | 2022-04-02 01:42 | NUR ---
Pt appears to be asleep. CPAP in place.
[2022-04-02 04:00] VITALS: BP 145/73
--- NOTE | 2022-04-02 05:17 | NUR ---
Pt awake with c/o lower back pain.Medicated with tylenols 650 mgs po. Assisted to reposition self. Will monitor for effect.
[2022-04-02 06:06] LABS: HEMATOCRIT 26.9 % (37.0-47.0); MEAN CELL VOLUME 98.9 fL CALC (80.0-100.0); MEAN CORPUSCULAR HGB 29.4 pG CALC (26.0-32.0); MEAN CORPUSCULAR HGB CONC 29.7 g/dL CAL (32.0-36.0); RED BLOOD COUNT 2.72 mill/uL (4.20-5.60); RED CELL DISTRI WIDTH 18.6 % (11.5-15.5)
[2022-04-02 06:28] LABS: ANION GAP 10 (6-22 (CALC)); BUN 18 mg/dL (8-23); BUN/CREATININE RATIO 26 (12-20 (CALC)); CARBON DIOXIDE 32 mmol/l (22-30); CHLORIDE 103 mmol/l (95-108); CREATININE 0.7 mg/dL (0.5-1.0); GFR FOR AFR.AMER. > 60 ML/MIN (>=60 (CALC)); GFR OTHER RACES > 60 ML/MIN (>=60 (CALC)); POTASSIUM 4.1 mmol/l (3.5-5.1); SODIUM 140 mmol/l (137-146)
[2022-04-02 06:47] VITALS: BP 157/74
[2022-04-02 11:37] VITALS: BP 150/74
[2022-04-02 16:49] VITALS: BP 149/74
[2022-04-02 18:59] VITALS: BP 143/69
--- NOTE | 2022-04-02 19:32 | NUR ---
Report received from am RN. Pt received sitting up in bed, talking on phone. In no apparent distress. Will monitor.
[2022-04-03 00:02] VITALS: BP 149/67
--- NOTE | 2022-04-03 02:46 | NUR ---
Pt appears to be asleep with CPAP in place. Resps even and unlaboured. Call meredith within reach.
[2022-04-03 03:43] VITALS: BP 139/51
[2022-04-03 05:48] LABS: HEMATOCRIT 28.5 % (37.0-47.0); HEMOGLOBIN 8.6 g/dl (12.0-16.0); MEAN CELL VOLUME 98.3 fL CALC (80.0-100.0); MEAN CORPUSCULAR HGB 29.7 pG CALC (26.0-32.0); MEAN CORPUSCULAR HGB CONC 30.2 g/dL CAL (32.0-36.0); RED BLOOD COUNT 2.9 mill/uL (4.20-5.60); RED CELL DISTRI WIDTH 18.2 % (11.5-15.5)
--- NOTE | 2022-04-03 06:15 | NUR ---
Pt was receiving resp treatment. No noted complaints.
[2022-04-03 06:19] LABS: ANION GAP 9 (6-22 (CALC)); BUN 16 mg/dL (8-23); BUN/CREATININE RATIO 31 (12-20 (CALC)); CARBON DIOXIDE 38 mmol/l (22-30); CHLORIDE 97 mmol/l (95-108); CREATININE 0.5 mg/dL (0.5-1.0); GFR FOR AFR.AMER. > 60 ML/MIN (>=60 (CALC)); GFR OTHER RACES > 60 ML/MIN (>=60 (CALC)); MAGNESIUM 1.9 mg/dL (1.6-2.3); POTASSIUM 4.3 mmol/l (3.5-5.1); SODIUM 139 mmol/l (137-146)
[2022-04-03 06:36] VITALS: BP 139/61
[2022-04-03 11:54] VITALS: BP 155/72
[2022-04-03 16:56] VITALS: BP 136/63
[2022-04-03 18:55] VITALS: BP 138/67
--- NOTE | 2022-04-03 19:00 | NUR ---
Report received from AM RN. Pt received in bed, awake and alert.O2 in place. In no apparent distress. Will monitor.
[2022-04-04 00:04] VITALS: BP 128/53
--- NOTE | 2022-04-04 01:12 | NUR ---
Pt appears to be sleeping. CPAP in place. No noted complaints.
[2022-04-04 04:26] VITALS: BP 147/80
[2022-04-04 05:00] LABS: HEMATOCRIT 27.3 % (37.0-47.0); HEMOGLOBIN 8.3 g/dl (12.0-16.0); MEAN CELL VOLUME 98.9 fL CALC (80.0-100.0); MEAN CORPUSCULAR HGB 30.1 pG CALC (26.0-32.0); MEAN CORPUSCULAR HGB CONC 30.4 g/dL CAL (32.0-36.0); RED BLOOD COUNT 2.76 mill/uL (4.20-5.60); RED CELL DISTRI WIDTH 18.1 % (11.5-15.5)
[2022-04-04 05:02] LABS: ANION GAP 10 (6-22 (CALC)); BUN 17 mg/dL (8-23); BUN/CREATININE RATIO 28 (12-20 (CALC)); CARBON DIOXIDE 36 mmol/l (22-30); CHLORIDE 95 mmol/l (95-108); CREATININE 0.6 mg/dL (0.5-1.0); GFR FOR AFR.AMER. > 60 ML/MIN (>=60 (CALC)); GFR OTHER RACES > 60 ML/MIN (>=60 (CALC)); MAGNESIUM 1.9 mg/dL (1.6-2.3); POTASSIUM 4.3 mmol/l (3.5-5.1); SODIUM 137 mmol/l (137-146)
--- NOTE | 2022-04-04 06:25 | NUR ---
Pt awake, alert. [address] via NC. No noted complaints. Will monitor.
[2022-04-04 06:30] VITALS: BP 150/64
[2022-04-04] MEDS ORDERED: PREDNISONE10 MG PO (09:47)
[2022-04-04 10:59] VITALS: BP 153/71
[2022-04-04 12:00] VITALS: BP 153/71
[2022-04-04 16:00] VITALS: BP 139/68
--- NOTE | 2022-04-04 17:26 | NUR ---
DISCHARGE INSTRUCTIONS GIVEN TOPATIENT AND DAUGHTER, UNDERSTANDING VERBALISED pATIENT WENT HOME IN STABLE CONDITIONS
== END 2022-04-04 17:24 | disposition home health service (06) | DRG 811 ==
LOC: ED 12:42 → ED-I 14:20 → ED 14:34 → MS2 14:35
PROVIDERS: Family Medicine; Internal Medicine; ADMIT Internal Medicine; ATTEND Internal Medicine
PROC: 30233N1 Transfusion of Nonautologous Red Blood Cells into Peripheral Vein, Percutaneous Approach (ICD-10-PCS; principal; 2022-03-30)
DX: D50.0 Iron deficiency anemia secondary to blood loss (chronic) (principal); J96.21 Acute and chronic respiratory failure with hypoxia; J96.12 Chronic respiratory failure with hypercapnia; J44.1 Chronic obstructive pulmonary disease with (acute) exacerbation; I10 Essential (primary) hypertension; I48.91 Unspecified atrial fibrillation; I25.10 Atherosclerotic heart disease of native coronary artery without angina pectoris; E78.5 Hyperlipidemia, unspecified; F41.9 Anxiety disorder, unspecified; R63.6 Underweight; I25.2 Old myocardial infarction; Z99.81 Dependence on supplemental oxygen; Z79.01 Long term (current) use of anticoagulants; Z87.891 Personal history of nicotine dependence; Z20.822 Contact with and (suspected) exposure to COVID-19
CPT/HCPCS: J1756; P9016

== ENCOUNTER 2022-08-17 22:43 | Emergency (ER) | payer MEDICARE ==
[~2022-08-17] VITALS: Ht 157.5 cm; Wt 41.3 kg
[2022-08-17 23:29] VITALS: BP 110/48
[2022-08-17 23:30] VITALS: BP 107/52
[2022-08-17 23:46] VITALS: BP 115/51
[2022-08-18] VITALS: BP 104/57
[2022-08-18 00:15] VITALS: BP 116/54
[2022-08-18 00:30] VITALS: BP 112/56
[2022-08-18 00:32] VITALS: BP 112/56
== END 2022-08-18 00:45 | disposition home or self-care (01) ==
LOC: ED 22:43
PROC: 0HQGXZZ Repair Left Hand Skin, External Approach (ICD-10-PCS; principal; 2022-08-17)
DX: S61.211A Laceration without foreign body of left index finger without damage to nail, initial encounter (principal); J44.9 Chronic obstructive pulmonary disease, unspecified; E78.5 Hyperlipidemia, unspecified; I25.10 Atherosclerotic heart disease of native coronary artery without angina pectoris; I25.2 Old myocardial infarction; F41.9 Anxiety disorder, unspecified; W26.0XXA Contact with knife, initial encounter; Y92.009 Unspecified place in unspecified non-institutional (private) residence as the place of occurrence of the external cause

== ENCOUNTER 2022-09-16 09:28 | Inpatient (IN) | payer MEDICARE ==
[2022-09-16] VITALS (18 sets, daily range): BP systolic 115–191; BP diastolic 53–88
[~2022-09-16] VITALS: Ht 157.5 cm; Wt 41.7 kg
[2022-09-16 10:20] LABS: BASO% 0.3 % (0-3); EOS% 0.9 % (0-8); HEMATOCRIT 42.3 % (37.0-47.0); HEMOGLOBIN 12.7 g/dl (12.0-16.0); LYMPH% 23.3 % (15-41); MEAN CELL VOLUME 106.3 fL CALC (80.0-100.0); MEAN CORPUSCULAR HGB 31.9 pG CALC (26.0-32.0); MONO% 10.5 % (2-13); NEUT# 7.54 thou/uL (2.00-7.15); RED BLOOD COUNT 3.98 mill/uL (4.20-5.60); RED CELL DISTRI WIDTH 13.6 % (11.5-15.5)
[2022-09-16 10:32] LABS: ALBUMIN 4.2 g/dL (3.2-5.0); ALKALINE PHOSPHATASE 48 u/l (38-126); ANION GAP 8 (6-22 (CALC)); BILIRUBIN, TOTAL 0.3 mg/dL (0.02-1.3); BUN 21 mg/dL (8-23); BUN/CREATININE RATIO 28 (12-20 (CALC)); CARBON DIOXIDE 35 mmol/l (22-30); CHLORIDE 103 mmol/l (95-108); CREATININE 0.7 mg/dL (0.5-1.0); GFR FOR AFR.AMER. > 60 ML/MIN (>=60 (CALC)); GFR OTHER RACES > 60 ML/MIN (>=60 (CALC)); POTASSIUM 3.7 mmol/l (3.5-5.1); SGOT/AST 25 u/l (9-36); SODIUM 143 mmol/l (137-146); TOTAL PROTEIN 6.5 g/dL (6.3-8.2)
[2022-09-16] MEDS ORDERED: XANAX0.25 MG PO (11:29)
[2022-09-16] MEDS ORDERED: FLECAINIDE50 MG PO (12:19)
[2022-09-16] MEDS ORDERED: TRAZODONE50 MG PO (12:20)
[2022-09-17] VITALS (9 sets, daily range): BP systolic 99–193; BP diastolic 52–114
[2022-09-17 05:34] LABS: BASO% 0.1 % (0-3); HEMATOCRIT 43.5 % (37.0-47.0); HEMOGLOBIN 13.1 g/dl (12.0-16.0); IMMATURE GRANULOCYTES 0.8 % (0.0-5.0); LYMPH% 7.1 % (15-41); MEAN CELL VOLUME 105.3 fL CALC (80.0-100.0); MEAN CORPUSCULAR HGB 31.7 pG CALC (26.0-32.0); MEAN CORPUSCULAR HGB CONC 30.1 g/dL CAL (32.0-36.0); NEUT# 9.53 thou/uL (2.00-7.15); RED BLOOD COUNT 4.13 mill/uL (4.20-5.60); RED CELL DISTRI WIDTH 13.4 % (11.5-15.5)
[2022-09-17 05:56] LABS: ALBUMIN 4.7 g/dL (3.2-5.0); ALKALINE PHOSPHATASE 54 u/l (38-126); ANION GAP 16 (6-22 (CALC)); BILIRUBIN, TOTAL 0.3 mg/dL (0.02-1.3); BUN 23 mg/dL (8-23); BUN/CREATININE RATIO 32 (12-20 (CALC)); CARBON DIOXIDE 32 mmol/l (22-30); CHLORIDE 100 mmol/l (95-108); CREATININE 0.7 mg/dL (0.5-1.0); GFR FOR AFR.AMER. > 60 ML/MIN (>=60 (CALC)); GFR OTHER RACES > 60 ML/MIN (>=60 (CALC)); MAGNESIUM 2.2 mg/dL (1.6-2.3); POTASSIUM 4.2 mmol/l (3.5-5.1); SGOT/AST 30 u/l (9-36); SODIUM 143 mmol/l (137-146); TOTAL PROTEIN 6.8 g/dL (6.3-8.2)
[2022-09-18 03:32] VITALS: BP 146/67
[2022-09-18 05:53] VITALS: BP 131/56
[2022-09-18 06:08] LABS: HEMOGLOBIN 11.6 g/dl (12.0-16.0); MEAN CELL VOLUME 107.3 fL CALC (80.0-100.0); MEAN CORPUSCULAR HGB 32.8 pG CALC (26.0-32.0); MEAN CORPUSCULAR HGB CONC 30.5 g/dL CAL (32.0-36.0); RED BLOOD COUNT 3.54 mill/uL (4.20-5.60); RED CELL DISTRI WIDTH 13.6 % (11.5-15.5)
[2022-09-18 06:22] LABS: ALBUMIN 3.9 g/dL (3.2-5.0); ALKALINE PHOSPHATASE 46 u/l (38-126); ANION GAP 7 (6-22 (CALC)); BILIRUBIN, TOTAL 0.2 mg/dL (0.02-1.3); BUN 39 mg/dL (8-23); BUN/CREATININE RATIO 46 (12-20 (CALC)); CARBON DIOXIDE 34 mmol/l (22-30); CHLORIDE 102 mmol/l (95-108); CREATININE 0.9 mg/dL (0.5-1.0); GFR FOR AFR.AMER. > 60 ML/MIN (>=60 (CALC)); GFR OTHER RACES > 60 ML/MIN (>=60 (CALC)); MAGNESIUM 2.3 mg/dL (1.6-2.3); POTASSIUM 4.3 mmol/l (3.5-5.1); SGOT/AST 33 u/l (9-36); SODIUM 139 mmol/l (137-146); TOTAL PROTEIN 5.7 g/dL (6.3-8.2)
[2022-09-18 09:57] VITALS: BP 143/60
[2022-09-18 14:26] VITALS: BP 134/64
[2022-09-18 17:50] VITALS: BP 150/59
[2022-09-18 23:10] VITALS: BP 141/64
[2022-09-19 03:07] VITALS: BP 135/65
[2022-09-19 06:23] LABS: HEMOGLOBIN 11.9 g/dl (12.0-16.0); MEAN CELL VOLUME 105.1 fL CALC (80.0-100.0); MEAN CORPUSCULAR HGB 32.1 pG CALC (26.0-32.0); MEAN CORPUSCULAR HGB CONC 30.5 g/dL CAL (32.0-36.0); RED BLOOD COUNT 3.71 mill/uL (4.20-5.60); RED CELL DISTRI WIDTH 13.6 % (11.5-15.5)
[2022-09-19 06:34] LABS: ALKALINE PHOSPHATASE 49 u/l (38-126); ANION GAP 10 (6-22 (CALC)); BUN 47 mg/dL (8-23); BUN/CREATININE RATIO 57 (12-20 (CALC)); CARBON DIOXIDE 35 mmol/l (22-30); CHLORIDE 101 mmol/l (95-108); CREATININE 0.8 mg/dL (0.5-1.0); GFR FOR AFR.AMER. > 60 ML/MIN (>=60 (CALC)); GFR OTHER RACES > 60 ML/MIN (>=60 (CALC)); MAGNESIUM 2.4 mg/dL (1.6-2.3); SGOT/AST 41 u/l (9-36); SODIUM 141 mmol/l (137-146); TOTAL PROTEIN 5.8 g/dL (6.3-8.2)
[2022-09-19 06:35] LABS: BILIRUBIN, TOTAL 0.4 mg/dL (0.02-1.3)
[2022-09-19 06:40] VITALS: BP 168/75
[2022-09-19 09:36] VITALS: BP 172/76
[2022-09-19 10:37] VITALS: BP 172/76
[2022-09-19 13:15] VITALS: BP 156/57
[2022-09-19 20:39] VITALS: BP 157/67
[2022-09-20 02:58] VITALS: BP 137/62
[2022-09-20 05:40] VITALS: BP 135/66
[2022-09-20 05:40] LABS: MEAN CELL VOLUME 105.6 fL CALC (80.0-100.0); MEAN CORPUSCULAR HGB 32.1 pG CALC (26.0-32.0); MEAN CORPUSCULAR HGB CONC 30.4 g/dL CAL (32.0-36.0); RED BLOOD COUNT 4.49 mill/uL (4.20-5.60); RED CELL DISTRI WIDTH 13.3 % (11.5-15.5)
[2022-09-20 05:45] LABS: HEMATOCRIT 47.4 % (37.0-47.0); HEMOGLOBIN 14.4 g/dl (12.0-16.0)
[2022-09-20 05:52] LABS: ALKALINE PHOSPHATASE 51 u/l (38-126); BUN 39 mg/dL (8-23); BUN/CREATININE RATIO 54 (12-20 (CALC)); CARBON DIOXIDE 32 mmol/l (22-30); CHLORIDE 99 mmol/l (95-108); CREATININE 0.7 mg/dL (0.5-1.0); GFR FOR AFR.AMER. > 60 ML/MIN (>=60 (CALC)); GFR OTHER RACES > 60 ML/MIN (>=60 (CALC)); MAGNESIUM 2.3 mg/dL (1.6-2.3); SGOT/AST 48 u/l (9-36); SODIUM 144 mmol/l (137-146)
[2022-09-20 05:54] LABS: ANION GAP 18 (6-22 (CALC)); BILIRUBIN, TOTAL 0.6 mg/dL (0.02-1.3); POTASSIUM 5.2 mmol/l (3.5-5.1)
[2022-09-20 13:32] VITALS: BP 156/65
[2022-09-20 18:07] VITALS: BP 152/62
[2022-09-20 19:37] VITALS: BP 149/64
[2022-09-20 23:23] VITALS: BP 102/51
[2022-09-21 03:01] VITALS: BP 119/54
[2022-09-21 04:33] VITALS: BP 131/53
[2022-09-21 05:12] VITALS: BP 130/54
[2022-09-21 07:08] LABS: MEAN CELL VOLUME 107.8 fL CALC (80.0-100.0); MEAN CORPUSCULAR HGB 32.4 pG CALC (26.0-32.0); MEAN CORPUSCULAR HGB CONC 30.1 g/dL CAL (32.0-36.0); RED BLOOD COUNT 3.7 mill/uL (4.20-5.60)
[2022-09-21 07:10] LABS: ALKALINE PHOSPHATASE 39 u/l (38-126); ANION GAP 13 (6-22 (CALC)); BUN 31 mg/dL (8-23); BUN/CREATININE RATIO 44 (12-20 (CALC)); CARBON DIOXIDE 31 mmol/l (22-30); CHLORIDE 103 mmol/l (95-108); CREATININE 0.7 mg/dL (0.5-1.0); GFR FOR AFR.AMER. > 60 ML/MIN (>=60 (CALC)); GFR OTHER RACES > 60 ML/MIN (>=60 (CALC)); MAGNESIUM 2.1 mg/dL (1.6-2.3); POTASSIUM 4.2 mmol/l (3.5-5.1); SGOT/AST 29 u/l (9-36); SODIUM 142 mmol/l (137-146)
[2022-09-21 07:11] LABS: ALBUMIN 3.9 g/dL (3.2-5.0); BILIRUBIN, TOTAL 0.2 mg/dL (0.02-1.3); TOTAL PROTEIN 5.4 g/dL (6.3-8.2)
[2022-09-21 07:12] LABS: HEMATOCRIT 39.9 % (37.0-47.0)
[2022-09-21 08:27] VITALS: BP 129/81
[2022-09-21 09:02] VITALS: BP 159/62
[2022-09-21] MEDS ORDERED: LEXAPRO10 MG PO ×2 (12:36)
[2022-09-21] MEDS ORDERED: MONDOXYNE NL100 MG PO (12:38)
[2022-09-21] MEDS ORDERED: PREDNISONE10 MG PO (12:39)
== END 2022-09-21 13:40 | DRG 190 ==
LOC: ED 09:28 → ED-I 10:23 → ED 10:23 → ED-I 10:45 → ED 11:12 → MS2 11:13
PROVIDERS: Family Medicine; Nurse Practitioner Family; ADMIT Internal Medicine; ATTEND Internal Medicine
PROC: 5A09357 Assistance with Respiratory Ventilation, Less than 24 Consecutive Hours, Continuous Positive Airway Pressure (ICD-10-PCS; principal; 2022-09-18)
DX: J44.1 Chronic obstructive pulmonary disease with (acute) exacerbation (principal); J96.21 Acute and chronic respiratory failure with hypoxia; J96.22 Acute and chronic respiratory failure with hypercapnia; I10 Essential (primary) hypertension; I48.91 Unspecified atrial fibrillation; E78.5 Hyperlipidemia, unspecified; I25.10 Atherosclerotic heart disease of native coronary artery without angina pectoris; F31.9 Bipolar disorder, unspecified; F41.9 Anxiety disorder, unspecified; I25.2 Old myocardial infarction; Z87.19 Personal history of other diseases of the digestive system; Z99.81 Dependence on supplemental oxygen; Z87.891 Personal history of nicotine dependence; Z20.822 Contact with and (suspected) exposure to COVID-19
CPT/HCPCS: G0378

== ENCOUNTER 2022-12-20 11:15 | Emergency (ER) | payer MEDICARE ==
[~2022-12-20] VITALS: Ht 157.5 cm; Wt 42.0 kg
[2022-12-20] VITALS (7 sets, daily range): BP systolic 136–170; BP diastolic 46–77
[~2022-12-20 11:15] MED LIST changes: +FLECAINIDE50 MG PO; +MONDOXYNE NL100 MG PO; +TRAZODONE50 MG PO
[2022-12-20 12:46] LABS: BASO% 0.4 % (0-3); EOS% 3.8 % (0-8); HEMATOCRIT 38.7 % (37.0-47.0); HEMOGLOBIN 11.9 g/dl (12.0-16.0); IMMATURE GRANULOCYTES 1.9 % (0.0-5.0); LYMPH% 15.6 % (15-41); MEAN CELL VOLUME 101.8 fL CALC (80.0-100.0); MEAN CORPUSCULAR HGB 31.3 pG CALC (26.0-32.0); MEAN CORPUSCULAR HGB CONC 30.7 g/dL CAL (32.0-36.0); MONO% 10.9 % (2-13); NEUT# 7.59 thou/uL (2.00-7.15); NEUT% 67.4 % (42-76); RED BLOOD COUNT 3.8 mill/uL (4.20-5.60); RED CELL DISTRI WIDTH 14.3 % (11.5-15.5)
[2022-12-20 13:02] LABS: ALBUMIN 3.9 g/dL (3.2-5.0); ALKALINE PHOSPHATASE 50 u/l (38-126); BUN 24 mg/dL (8-23); BUN/CREATININE RATIO 39 (12-20 (CALC)); CARBON DIOXIDE 30 mmol/l (22-30); CHLORIDE 103 mmol/l (95-108); CREATININE 0.6 mg/dL (0.5-1.0); GFR FOR AFR.AMER. > 60 ML/MIN (>=60 (CALC)); GFR OTHER RACES > 60 ML/MIN (>=60 (CALC)); LIPASE 124 u/l (23-300); SGOT/AST 21 u/l (9-36); SODIUM 140 mmol/l (137-146); TOTAL PROTEIN 5.8 g/dL (6.3-8.2)
[2022-12-20 13:04] LABS: ANION GAP 11 (6-22 (CALC)); POTASSIUM 4.2 mmol/l (3.5-5.1)
[2022-12-20 13:09] LABS: BILIRUBIN, TOTAL 0.4 mg/dL (0.02-1.3)
[2022-12-20 13:19] LABS: URINE BILIRUBIN - DIPSTICK NEGATIVE (NEGATIVE); URINE BLOOD DIPSTICK NEGATIVE (NEGATIVE); URINE COLOR YELLOW; URINE GLUCOSE - DIPSTICK NEGATIVE (NEGATIVE); URINE KETONE NEGATIVE (NEGATIVE); URINE LEUK ESTERASE NEGATIVE (NEGATIVE); URINE PH 5.5 (4.5-8.0); URINE PROTEIN - DIPSTICK NEGATIVE (NEG-TRACE); URINE SPECIFIC GRAVITY >=1.030; URINE UROBILINOGEN - DIPSTICK 0.2 E.U./dL (0.2)
[2022-12-20 13:21] LABS: URINE NITRITE - DIPSTICK NEGATIVE (Negative)
[2022-12-20 13:30] LABS: URINE BACTERIA FEW hpf; URINE CALCIUM OXALATE CRYSTALS MODERATE lpf; URINE SQUAMOUS EPITHELIAL CELL FEW EPI/hpf (0-FEW)
[2022-12-20 13:31] LABS: URINE TRANSITIONAL EPI. CELLS MODERATE hpf
[2022-12-20 13:32] LABS: URINE RBC 0-2 RBC/hpf (0-5)
[2022-12-20] MEDS ORDERED: NITROFURANTO100 MG PO (14:30)
== END 2022-12-20 15:01 | disposition home or self-care (01) ==
LOC: ED 11:15
PROVIDERS: Family Medicine
DX: K59.00 Constipation, unspecified (principal); N39.0 Urinary tract infection, site not specified; J44.9 Chronic obstructive pulmonary disease, unspecified; E78.5 Hyperlipidemia, unspecified; I25.10 Atherosclerotic heart disease of native coronary artery without angina pectoris; I25.2 Old myocardial infarction; F41.9 Anxiety disorder, unspecified
CPT/HCPCS: Q9967

== ENCOUNTER 2022-12-22 19:23 | Emergency (ER) | payer MEDICARE ==
[~2022-12-22] VITALS: Ht 157.5 cm; Wt 43.0 kg
[2022-12-22] VITALS (11 sets, daily range): BP systolic 134–169; BP diastolic 70–99
[~2022-12-22 19:23] MED LIST changes: +NITROFURANTO100 MG PO
[2022-12-22 20:39] LABS: BASO% 0.4 % (0-3); EOS% 2.5 % (0-8); HEMATOCRIT 38.5 % (37.0-47.0); HEMOGLOBIN 12.2 g/dl (12.0-16.0); IMMATURE GRANULOCYTES 0.8 % (0.0-5.0); LYMPH% 12.8 % (15-41); MEAN CELL VOLUME 97.7 fL CALC (80.0-100.0); MEAN CORPUSCULAR HGB CONC 31.7 g/dL CAL (32.0-36.0); MONO% 10.8 % (2-13); NEUT# 10.83 thou/uL (2.00-7.15); NEUT% 72.7 % (42-76); RED BLOOD COUNT 3.94 mill/uL (4.20-5.60); RED CELL DISTRI WIDTH 14.5 % (11.5-15.5)
[2022-12-22 20:52] LABS: ALBUMIN 4.1 g/dL (3.2-5.0); ALKALINE PHOSPHATASE 64 u/l (38-126); ANION GAP 11 (6-22 (CALC)); BILIRUBIN, TOTAL 0.9 mg/dL (0.02-1.3); BUN 15 mg/dL (8-23); BUN/CREATININE RATIO 22 (12-20 (CALC)); CARBON DIOXIDE 31 mmol/l (22-30); CHLORIDE 98 mmol/l (95-108); CREATININE 0.7 mg/dL (0.5-1.0); GFR FOR AFR.AMER. > 60 ML/MIN (>=60 (CALC)); GFR OTHER RACES > 60 ML/MIN (>=60 (CALC)); POTASSIUM 4.2 mmol/l (3.5-5.1); SGOT/AST 27 u/l (9-36); SODIUM 136 mmol/l (137-146)
[2022-12-22 21:08] LABS: URINE BILIRUBIN - DIPSTICK NEGATIVE (NEGATIVE); URINE BLOOD DIPSTICK TRACE-INTACT (NEGATIVE); URINE COLOR YELLOW; URINE GLUCOSE - DIPSTICK NEGATIVE (NEGATIVE); URINE KETONE NEGATIVE (NEGATIVE); URINE LEUK ESTERASE NEGATIVE (NEGATIVE); URINE PROTEIN - DIPSTICK NEGATIVE (NEG-TRACE); URINE SPECIFIC GRAVITY 1.015; URINE UROBILINOGEN - DIPSTICK 0.2 E.U./dL (0.2)
[2022-12-22 21:10] LABS: URINE NITRITE - DIPSTICK NEGATIVE (Negative)
[2022-12-22] MEDS ORDERED: ULTRAM50 MG PO (22:25)
[2022-12-22] MEDS ORDERED: FAMCICLOVIR500 MG PO (22:25)
[2022-12-22] MEDS ORDERED: ZOVIRAX52 TOP (22:25)
== END 2022-12-22 23:00 | disposition home or self-care (01) ==
LOC: ED 19:23
PROVIDERS: Emergency Medicine
DX: R10.33 Periumbilical pain (principal); B02.9 Zoster without complications; J44.9 Chronic obstructive pulmonary disease, unspecified; I25.10 Atherosclerotic heart disease of native coronary artery without angina pectoris; E78.5 Hyperlipidemia, unspecified; I25.2 Old myocardial infarction; F41.9 Anxiety disorder, unspecified
CPT/HCPCS: Q9967

== ENCOUNTER 2023-01-05 10:49 | Emergency (ER) | payer MEDICARE ==
[~2023-01-05] VITALS: Ht 157.5 cm; Wt 41.9 kg
[~2023-01-05 10:49] MED LIST changes: +FAMCICLOVIR500 MG PO; +ZOVIRAX52 TOP
[2023-01-05 10:55] VITALS: BP 165/79
[2023-01-05 12:07] LABS: BASO% 0.4 % (0-3); EOS% 4.4 % (0-8); HEMATOCRIT 38.1 % (37.0-47.0); HEMOGLOBIN 11.9 g/dl (12.0-16.0); IMMATURE GRANULOCYTES 0.7 % (0.0-5.0); LYMPH% 24.9 % (15-41); MEAN CELL VOLUME 100.5 fL CALC (80.0-100.0); MEAN CORPUSCULAR HGB 31.4 pG CALC (26.0-32.0); MEAN CORPUSCULAR HGB CONC 31.2 g/dL CAL (32.0-36.0); MONO% 8.5 % (2-13); NEUT# 7.14 thou/uL (2.00-7.15); NEUT% 61.1 % (42-76); RED BLOOD COUNT 3.79 mill/uL (4.20-5.60); RED CELL DISTRI WIDTH 14.6 % (11.5-15.5)
[2023-01-05 12:12] LABS: ALBUMIN 4.1 g/dL (3.2-5.0); ALKALINE PHOSPHATASE 49 u/l (38-126); ANION GAP 11 (6-22 (CALC)); BUN 15 mg/dL (8-23); BUN/CREATININE RATIO 25 (12-20 (CALC)); CARBON DIOXIDE 31 mmol/l (22-30); CHLORIDE 104 mmol/l (95-108); CREATININE 0.6 mg/dL (0.5-1.0); GFR FOR AFR.AMER. > 60 ML/MIN (>=60 (CALC)); GFR OTHER RACES > 60 ML/MIN (>=60 (CALC)); POTASSIUM 3.8 mmol/l (3.5-5.1); SGOT/AST 24 u/l (9-36); SODIUM 142 mmol/l (137-146); TOTAL PROTEIN 6.5 g/dL (6.3-8.2)
[2023-01-05 12:13] LABS: BILIRUBIN, TOTAL 0.4 mg/dL (0.02-1.3)
[2023-01-05 12:16] VITALS: BP 157/75
[2023-01-05 12:45] VITALS: BP 165/79
[2023-01-05 13:01] VITALS: BP 182/91
[2023-01-05] MEDS ORDERED: ASPERCREME LIDOCA41 TOP (14:28)
[2023-01-05 14:54] VITALS: BP 182/91
== END 2023-01-05 15:16 | disposition home or self-care (01) ==
LOC: ED 10:49
PROVIDERS: Family Medicine
DX: B02.9 Zoster without complications (principal); J44.9 Chronic obstructive pulmonary disease, unspecified; I25.10 Atherosclerotic heart disease of native coronary artery without angina pectoris; E78.5 Hyperlipidemia, unspecified; F41.9 Anxiety disorder, unspecified; R63.6 Underweight; I25.2 Old myocardial infarction; Z99.81 Dependence on supplemental oxygen

== ENCOUNTER 2023-01-28 12:44 | Observation (INO) | payer MEDICARE ==
[~2023-01-28] VITALS: Ht 157.5 cm; Wt 45.4 kg
[2023-01-28] VITALS (30 sets, daily range): BP systolic 71–190; BP diastolic 30–121
[~2023-01-28 12:44] MED LIST changes: +ASPERCREME LIDOCA41 TOP
[2023-01-28 13:40] LABS: BASO% 0.3 % (0-3); EOS% 2.9 % (0-8); HEMATOCRIT 40.4 % (37.0-47.0); HEMOGLOBIN 12.3 g/dl (12.0-16.0); IMMATURE GRANULOCYTES 1.2 % (0.0-5.0); LYMPH% 31.1 % (15-41); MEAN CELL VOLUME 100.7 fL CALC (80.0-100.0); MEAN CORPUSCULAR HGB 30.7 pG CALC (26.0-32.0); MEAN CORPUSCULAR HGB CONC 30.4 g/dL CAL (32.0-36.0); MONO% 7.2 % (2-13); NEUT# 8.87 thou/uL (2.00-7.15); NEUT% 57.3 % (42-76); RED BLOOD COUNT 4.01 mill/uL (4.20-5.60); RED CELL DISTRI WIDTH 14.7 % (11.5-15.5)
[2023-01-28 14:05] LABS: ALBUMIN 4.2 g/dL (3.2-5.0); ALKALINE PHOSPHATASE 56 u/l (38-126); ANION GAP 12 (6-22 (CALC)); BILIRUBIN, TOTAL 0.5 mg/dL (0.02-1.3); BUN 18 mg/dL (8-23); BUN/CREATININE RATIO 27 (12-20 (CALC)); CARBON DIOXIDE 28 mmol/l (22-30); CHLORIDE 104 mmol/l (95-108); CREATININE 0.7 mg/dL (0.5-1.0); GFR FOR AFR.AMER. > 60 ML/MIN (>=60 (CALC)); GFR OTHER RACES > 60 ML/MIN (>=60 (CALC)); POTASSIUM 3.7 mmol/l (3.5-5.1); SGOT/AST 42 u/l (9-36); SODIUM 140 mmol/l (137-146); TOTAL PROTEIN 6.7 g/dL (6.3-8.2)
[2023-01-29] VITALS (47 sets, daily range): BP systolic 126–215; BP diastolic 52–120
[2023-01-29 05:42] LABS: BASO% 0.2 % (0-3); HEMOGLOBIN 10.6 g/dl (12.0-16.0); IMMATURE GRANULOCYTES 0.7 % (0.0-5.0); MEAN CELL VOLUME 99.4 fL CALC (80.0-100.0); MEAN CORPUSCULAR HGB 31.2 pG CALC (26.0-32.0); MEAN CORPUSCULAR HGB CONC 31.4 g/dL CAL (32.0-36.0); MONO% 1.6 % (2-13); NEUT# 10.53 thou/uL (2.00-7.15); NEUT% 90.5 % (42-76); RED BLOOD COUNT 3.4 mill/uL (4.20-5.60); RED CELL DISTRI WIDTH 14.6 % (11.5-15.5)
[2023-01-29 05:43] LABS: HEMATOCRIT 33.8 % (37.0-47.0)
[2023-01-29 06:03] LABS: ALBUMIN 3.7 g/dL (3.2-5.0); ALKALINE PHOSPHATASE 49 u/l (38-126); ANION GAP 11 (6-22 (CALC)); BILIRUBIN, TOTAL 0.2 mg/dL (0.02-1.3); BUN 13 mg/dL (8-23); BUN/CREATININE RATIO 25 (12-20 (CALC)); CARBON DIOXIDE 25 mmol/l (22-30); CHLORIDE 108 mmol/l (95-108); CREATININE 0.5 mg/dL (0.5-1.0); GFR FOR AFR.AMER. > 60 ML/MIN (>=60 (CALC)); GFR OTHER RACES > 60 ML/MIN (>=60 (CALC)); MAGNESIUM 1.9 mg/dL (1.6-2.3); POTASSIUM 3.9 mmol/l (3.5-5.1); SGOT/AST 30 u/l (9-36); SODIUM 140 mmol/l (137-146)
[2023-01-29] MEDS ORDERED: GABAPENTIN300 M2 PO (09:47)
[2023-01-29] MEDS ORDERED: DALIRESP250 MCG PO (09:55)
[2023-01-29 14:24] LABS: HEMATOCRIT 35.3 % (37.0-47.0); HEMOGLOBIN 10.7 g/dl (12.0-16.0); MEAN CELL VOLUME 101.4 fL CALC (80.0-100.0); MEAN CORPUSCULAR HGB 30.7 pG CALC (26.0-32.0); MEAN CORPUSCULAR HGB CONC 30.3 g/dL CAL (32.0-36.0); RED BLOOD COUNT 3.48 mill/uL (4.20-5.60); RED CELL DISTRI WIDTH 14.6 % (11.5-15.5)
[2023-01-29] MEDS ORDERED: TRELEGY ELLIPTA1 AER IN (15:35)
[2023-01-29] MEDS ORDERED: ABILIFY10 MG PO (15:37)
[2023-01-30] VITALS (47 sets, daily range): BP systolic 102–161; BP diastolic 45–75
[2023-01-30 09:32] LABS: HEMATOCRIT 34.8 % (37.0-47.0); HEMOGLOBIN 10.3 g/dl (12.0-16.0); MEAN CELL VOLUME 103.3 fL CALC (80.0-100.0); MEAN CORPUSCULAR HGB 30.6 pG CALC (26.0-32.0); MEAN CORPUSCULAR HGB CONC 29.6 g/dL CAL (32.0-36.0); RED BLOOD COUNT 3.37 mill/uL (4.20-5.60); RED CELL DISTRI WIDTH 14.6 % (11.5-15.5)
[2023-01-30 09:45] LABS: ANION GAP 15 (6-22 (CALC)); BUN 17 mg/dL (8-23); BUN/CREATININE RATIO 29 (12-20 (CALC)); CARBON DIOXIDE 21 mmol/l (22-30); CHLORIDE 108 mmol/l (95-108); CREATININE 0.6 mg/dL (0.5-1.0); GFR FOR AFR.AMER. > 60 ML/MIN (>=60 (CALC)); GFR OTHER RACES > 60 ML/MIN (>=60 (CALC)); POTASSIUM 4.5 mmol/l (3.5-5.1); SODIUM 140 mmol/l (137-146)
[2023-01-31] VITALS (49 sets, daily range): BP systolic 120–178; BP diastolic 54–110
[2023-01-31 11:20] LABS: HEMATOCRIT 35.4 % (37.0-47.0); HEMOGLOBIN 10.2 g/dl (12.0-16.0); MEAN CELL VOLUME 108.9 fL CALC (80.0-100.0); MEAN CORPUSCULAR HGB 31.4 pG CALC (26.0-32.0); MEAN CORPUSCULAR HGB CONC 28.8 g/dL CAL (32.0-36.0); RED BLOOD COUNT 3.25 mill/uL (4.20-5.60); RED CELL DISTRI WIDTH 14.7 % (11.5-15.5)
[2023-01-31 11:34] LABS: ALBUMIN 3.4 g/dL (3.2-5.0); ALKALINE PHOSPHATASE 33 u/l (38-126); ANION GAP 11 (6-22 (CALC)); BUN 18 mg/dL (8-23); BUN/CREATININE RATIO 33 (12-20 (CALC)); CARBON DIOXIDE 23 mmol/l (22-30); CHLORIDE 111 mmol/l (95-108); CREATININE 0.6 mg/dL (0.5-1.0); GFR FOR AFR.AMER. > 60 ML/MIN (>=60 (CALC)); GFR OTHER RACES > 60 ML/MIN (>=60 (CALC)); POTASSIUM 3.8 mmol/l (3.5-5.1); SGOT/AST 33 u/l (9-36); SODIUM 141 mmol/l (137-146); TOTAL PROTEIN 5.4 g/dL (6.3-8.2)
[2023-01-31 11:36] LABS: BILIRUBIN, TOTAL 0.3 mg/dL (0.02-1.3)
[2023-02-01] VITALS (26 sets, daily range): BP systolic 142–176; BP diastolic 61–79
[2023-02-01 05:17] LABS: HEMOGLOBIN 10.3 g/dl (12.0-16.0); MEAN CORPUSCULAR HGB 30.7 pG CALC (26.0-32.0); MEAN CORPUSCULAR HGB CONC 30.3 g/dL CAL (32.0-36.0); RED BLOOD COUNT 3.35 mill/uL (4.20-5.60); RED CELL DISTRI WIDTH 14.4 % (11.5-15.5)
[2023-02-01 05:33] LABS: ALBUMIN 3.5 g/dL (3.2-5.0); ALKALINE PHOSPHATASE 45 u/l (38-126); ANION GAP 7 (6-22 (CALC)); BILIRUBIN, TOTAL 0.2 mg/dL (0.02-1.3); BUN 14 mg/dL (8-23); BUN/CREATININE RATIO 26 (12-20 (CALC)); CHLORIDE 108 mmol/l (95-108); CREATININE 0.6 mg/dL (0.5-1.0); GFR FOR AFR.AMER. > 60 ML/MIN (>=60 (CALC)); GFR OTHER RACES > 60 ML/MIN (>=60 (CALC)); MEAN CELL VOLUME 101.5 fL CALC (80.0-100.0); POTASSIUM 3.7 mmol/l (3.5-5.1); SGOT/AST 26 u/l (9-36); SODIUM 141 mmol/l (137-146); TOTAL PROTEIN 5.3 g/dL (6.3-8.2)
[2023-02-01 05:45] LABS: CARBON DIOXIDE 30 mmol/l (22-30)
[2023-02-01] MEDS ORDERED: NORMODYNE/TRAN100 MG PO (09:35)
[2023-02-01] MEDS ORDERED: MEDDOSEPAK PO (09:47)
[2023-02-01] MEDS ORDERED: OMNICEF300 MG PO (09:48)
== END 2023-02-01 13:19 ==
LOC: ED 12:44 → ED-I 13:42 → ED 13:42 → ED-I 15:00 → ED 15:33 → ICU 15:34
PROVIDERS: Family Medicine; Nurse Practitioner Family; ADMIT Student in an Organized Health Care Education/Training Program; ATTEND Student in an Organized Health Care Education/Training Program
PROC: 5A09357 Assistance with Respiratory Ventilation, Less than 24 Consecutive Hours, Continuous Positive Airway Pressure (ICD-10-PCS; principal; 2023-01-28)
DX: J44.1 Chronic obstructive pulmonary disease with (acute) exacerbation (principal); J44.0 Chronic obstructive pulmonary disease with (acute) lower respiratory infection; J20.9 Acute bronchitis, unspecified; J96.21 Acute and chronic respiratory failure with hypoxia; J96.12 Chronic respiratory failure with hypercapnia; I25.10 Atherosclerotic heart disease of native coronary artery without angina pectoris; I48.91 Unspecified atrial fibrillation; E78.5 Hyperlipidemia, unspecified; F41.9 Anxiety disorder, unspecified; K21.9 Gastro-esophageal reflux disease without esophagitis; I25.2 Old myocardial infarction; K59.00 Constipation, unspecified; B02.9 Zoster without complications; Z99.81 Dependence on supplemental oxygen; Z87.891 Personal history of nicotine dependence; Z20.822 Contact with and (suspected) exposure to COVID-19
CPT/HCPCS: J1650

== ENCOUNTER 2023-06-26 09:00 | Observation (INO) | payer MEDICARE ==
[~2023-06-26] VITALS: Ht 157.5 cm; Wt 44.6 kg
[~2023-06-26 09:00] MED LIST changes: +ABILIFY10 MG PO; +GABAPENTIN300 M2 PO; +NORMODYNE/TRAN100 MG PO; +OMNICEF300 MG PO
[2023-06-26 10:31] LABS: BASO% 0.3 % (0-3); EOS% 2.6 % (0-8); HEMATOCRIT 37.6 % (37.0-47.0); HEMOGLOBIN 12.3 g/dl (12.0-16.0); IMMATURE GRANULOCYTES 0.8 % (0.0-5.0); LYMPH% 10.3 % (15-41); MEAN CELL VOLUME 97.2 fL CALC (80.0-100.0); MEAN CORPUSCULAR HGB 31.8 pG CALC (26.0-32.0); MEAN CORPUSCULAR HGB CONC 32.7 g/dL CAL (32.0-36.0); MONO% 3.2 % (2-13); NEUT# 9.41 thou/uL (2.00-7.15); NEUT% 82.8 % (42-76); RED BLOOD COUNT 3.87 mill/uL (4.20-5.60); RED CELL DISTRI WIDTH 15.1 % (11.5-15.5)
[2023-06-26 10:51] LABS: ALBUMIN 4.3 g/dL (3.2-5.0); ALKALINE PHOSPHATASE 67 u/l (38-126); ANION GAP 13 (6-22 (CALC)); BILIRUBIN, TOTAL 0.5 mg/dL (0.02-1.3); BUN 8 mg/dL (8-23); BUN/CREATININE RATIO 13 (12-20 (CALC)); CARBON DIOXIDE 26 mmol/l (22-30); CHLORIDE 106 mmol/l (95-108); CREATININE 0.6 mg/dL (0.5-1.0); GFR FOR AFR.AMER. > 60 ML/MIN (>=60 (CALC)); GFR OTHER RACES > 60 ML/MIN (>=60 (CALC)); POTASSIUM 3.6 mmol/l (3.5-5.1); SGOT/AST 31 u/l (9-36); SODIUM 141 mmol/l (137-146); TOTAL PROTEIN 6.4 g/dL (6.3-8.2)
[2023-06-26] MEDS ORDERED: VITAMIN D31000 UNI1 PO (12:06)
[2023-06-26] MEDS ORDERED: SLOW-MAG PO (12:11)
[2023-06-26] MEDS ORDERED: PROLIA60 MG/ML SC (12:21)
[2023-06-26] MEDS ORDERED: ZOFRAN4 MG/TAB PO (12:23)
[2023-06-26] MEDS ORDERED: ALLEGRA-D 2424 HOUR PO (12:23)
[2023-06-26] MEDS ORDERED: XANAX0.5 MG PO (12:24)
[2023-06-26] MEDS ORDERED: DILT-XR240 MG PO (12:31)
[2023-06-26] MEDS ORDERED: AMBIEN5 MG PO (12:32)
[2023-06-26] MEDS ORDERED: PREDNISONE10 MG PO (12:33)
[2023-06-26] MEDS ORDERED: LORTAB 5/3255 MG PO (12:33)
[2023-06-26] MEDS ORDERED: LEXAPRO10 MG PO (12:34)
[2023-06-26] MEDS ORDERED: TRAZODONE50 MG PO (13:17)
[2023-06-26 15:21] VITALS: BP 178/71
[2023-06-26 16:02] LABS: URINE BILIRUBIN - DIPSTICK Negative (NEGATIVE); URINE BLOOD DIPSTICK Trace-lysed (NEGATIVE); URINE COLOR Yellow; URINE GLUCOSE - DIPSTICK Negative (NEGATIVE); URINE KETONE Negative (NEGATIVE); URINE LEUK ESTERASE Negative (NEGATIVE); URINE NITRITE - DIPSTICK Negative (Negative); URINE PH 6.5 (4.5-8.0); URINE PROTEIN - DIPSTICK Negative (NEG-TRACE); URINE UROBILINOGEN - DIPSTICK 0.2 E.U./dL (0.2)
[2023-06-26 19:31] VITALS: BP 124/46
[2023-06-27] VITALS (8 sets, daily range): BP systolic 117–154; BP diastolic 48–70
[2023-06-27 05:43] LABS: BASO% 0.4 % (0-3); EOS% 6.3 % (0-8); HEMATOCRIT 32.3 % (37.0-47.0); IMMATURE GRANULOCYTES 0.9 % (0.0-5.0); LYMPH% 31.2 % (15-41); MEAN CELL VOLUME 99.4 fL CALC (80.0-100.0); MEAN CORPUSCULAR HGB 31.4 pG CALC (26.0-32.0); MEAN CORPUSCULAR HGB CONC 31.6 g/dL CAL (32.0-36.0); MONO% 9.6 % (2-13); NEUT# 4.62 thou/uL (2.00-7.15); NEUT% 51.6 % (42-76); RED BLOOD COUNT 3.25 mill/uL (4.20-5.60); RED CELL DISTRI WIDTH 15.3 % (11.5-15.5)
[2023-06-27 05:48] LABS: HEMOGLOBIN 10.2 g/dl (12.0-16.0)
[2023-06-27 05:57] LABS: ALKALINE PHOSPHATASE 44 u/l (38-126); ANION GAP 11 (6-22 (CALC)); BUN 6 mg/dL (8-23); BUN/CREATININE RATIO 9 (12-20 (CALC)); CALCULATED LDLCHOLESTEROL 44 mg/dL (62-129 (CALC)); CARBON DIOXIDE 26 mmol/l (22-30); CHLORIDE 109 mmol/l (95-108); CHOLESTEROL HDL RATIO 2.1 (<4.4 (CALC)); CREATININE 0.7 mg/dL (0.5-1.0); GFR FOR AFR.AMER. > 60 ML/MIN (>=60 (CALC)); GFR OTHER RACES > 60 ML/MIN (>=60 (CALC)); HDL CHOLESTEROL 61 mg/dL (39.0-59.0); MAGNESIUM 2.1 mg/dL (1.6-2.3); POTASSIUM 3.7 mmol/l (3.5-5.1); SGOT/AST 27 u/l (9-36); SODIUM 142 mmol/l (137-146); TOTAL CHOLESTEROL 124 mg/dl (0-199); TOTAL TRIGLYCERIDES 101 mg/dl (0-149); VLDL CHOLESTROL 20 mg/dl (0-48 (CALC))
[2023-06-27 06:01] LABS: ALBUMIN 3.4 g/dL (3.2-5.0); BILIRUBIN, TOTAL 0.2 mg/dL (0.02-1.3); TOTAL PROTEIN 5.1 g/dL (6.3-8.2)
[2023-06-28 05:16] VITALS: BP 148/47
[2023-06-28 05:16] LABS: BASO% 0.5 % (0-3); HEMATOCRIT 33.3 % (37.0-47.0); HEMOGLOBIN 10.6 g/dl (12.0-16.0); IMMATURE GRANULOCYTES 0.5 % (0.0-5.0); LYMPH% 22.8 % (15-41); MEAN CELL VOLUME 99.1 fL CALC (80.0-100.0); MEAN CORPUSCULAR HGB 31.5 pG CALC (26.0-32.0); MEAN CORPUSCULAR HGB CONC 31.8 g/dL CAL (32.0-36.0); MONO% 10.5 % (2-13); NEUT# 6.32 thou/uL (2.00-7.15); NEUT% 61.7 % (42-76); RED BLOOD COUNT 3.36 mill/uL (4.20-5.60); RED CELL DISTRI WIDTH 15.1 % (11.5-15.5)
[2023-06-28 05:31] LABS: ALBUMIN 3.6 g/dL (3.2-5.0); ALKALINE PHOSPHATASE 47 u/l (38-126); BUN 10 mg/dL (8-23); BUN/CREATININE RATIO 17 (12-20 (CALC)); CHLORIDE 105 mmol/l (95-108); CREATININE 0.6 mg/dL (0.5-1.0); GFR FOR AFR.AMER. > 60 ML/MIN (>=60 (CALC)); GFR OTHER RACES > 60 ML/MIN (>=60 (CALC)); MAGNESIUM 1.8 mg/dL (1.6-2.3); POTASSIUM 4.2 mmol/l (3.5-5.1); SGOT/AST 24 u/l (9-36); SODIUM 141 mmol/l (137-146); TOTAL PROTEIN 5.2 g/dL (6.3-8.2)
[2023-06-28 05:34] LABS: ANION GAP 5 (6-22 (CALC)); BILIRUBIN, TOTAL 0.3 mg/dL (0.02-1.3); CARBON DIOXIDE 35 mmol/l (22-30)
[2023-06-28 06:45] VITALS: BP 129/55
[2023-06-28 10:37] VITALS: BP 121/44
[2023-06-28] MEDS ORDERED: METHOCARBAMOL500 MG PO (12:19)
[2023-06-28] MEDS ORDERED: PLAVIX75 MG PO (12:42)
== END 2023-06-28 13:34 ==
LOC: ED 09:00 → ED-I 11:35 → ED 13:59 → MS2 14:00
PROVIDERS: Emergency Medicine; Nurse Practitioner Family; ADMIT Student in an Organized Health Care Education/Training Program; ATTEND Student in an Organized Health Care Education/Training Program
DX: R07.9 Chest pain, unspecified (principal); G45.9 Transient cerebral ischemic attack, unspecified; J96.12 Chronic respiratory failure with hypercapnia; I10 Essential (primary) hypertension; I25.10 Atherosclerotic heart disease of native coronary artery without angina pectoris; J44.9 Chronic obstructive pulmonary disease, unspecified; E78.5 Hyperlipidemia, unspecified; I48.91 Unspecified atrial fibrillation; I67.82 Cerebral ischemia; F41.9 Anxiety disorder, unspecified; L40.9 Psoriasis, unspecified; K21.9 Gastro-esophageal reflux disease without esophagitis; R63.6 Underweight; I25.2 Old myocardial infarction; F17.210 Nicotine dependence, cigarettes, uncomplicated; Z99.81 Dependence on supplemental oxygen; Z68.1 Body mass index [BMI] 19.9 or less, adult; Z20.822 Contact with and (suspected) exposure to COVID-19
CPT/HCPCS: J1650

== ENCOUNTER 2023-08-04 17:09 | Observation (INO) | payer MEDICARE ==
[~2023-08-04] VITALS: Ht 157.5 cm; Wt 43.0 kg
[~2023-08-04 17:09] MED LIST changes: +ALLEGRA-D 2424 HOUR PO; +AMBIEN5 MG PO; +DILT-XR240 MG PO; +LORTAB 5/3255 MG PO; +METHOCARBAMOL500 MG PO; +PLAVIX75 MG PO; +PROLIA60 MG/ML SC; +ZOFRAN4 MG/TAB PO
[2023-08-04] MEDS ORDERED: IPRATROPIUM-Albuterol 0.5MG-2.5MG/3 ML NEB ONE (17:20)
[2023-08-04] MEDS ORDERED: methylPREDNISolone SODIUM SUCC 125 MG/2 ML SDV IV ONE (17:20)
[2023-08-04] MEDS ORDERED: DOXYCYCLINE HYCLATE 100 MG in SODIUM CHLORIDE 0.9% 100 ML IV ONE (19:10)
[2023-08-04 19:31] VITALS: BP 148/69
[2023-08-04] MEDS ORDERED: ALPRAZolam 0.5 MG/TAB PO ONE (19:35)
[2023-08-04 19:51] LABS: BASO% 0.3 % (0-3); EOS% 1.5 % (0-8); HEMATOCRIT 35.5 % (37.0-47.0); HEMOGLOBIN 11.3 g/dl (12.0-16.0); IMMATURE GRANULOCYTES 1.2 % (0.0-5.0); LYMPH% 15.9 % (15-41); MEAN CELL VOLUME 99.4 fL CALC (80.0-100.0); MEAN CORPUSCULAR HGB 31.7 pG CALC (26.0-32.0); MEAN CORPUSCULAR HGB CONC 31.8 g/dL CAL (32.0-36.0); MONO% 6.5 % (2-13); NEUT# 9.56 thou/uL (2.00-7.15); NEUT% 74.6 % (42-76); RED BLOOD COUNT 3.57 mill/uL (4.20-5.60); RED CELL DISTRI WIDTH 14.6 % (11.5-15.5)
[2023-08-04 20:00] VITALS: BP 160/75
[2023-08-04 20:12] LABS: ALBUMIN 4.1 g/dL (3.2-5.0); ALKALINE PHOSPHATASE 65 u/l (38-126); ANION GAP 10 (6-22 (CALC)); BILIRUBIN, TOTAL 0.4 mg/dL (0.02-1.3); BUN 15 mg/dL (8-23); BUN/CREATININE RATIO 25 (12-20 (CALC)); CARBON DIOXIDE 28 mmol/l (22-30); CHLORIDE 102 mmol/l (95-108); CREATININE 0.6 mg/dL (0.5-1.0); GFR FOR AFR.AMER. > 60 ML/MIN (>=60 (CALC)); GFR OTHER RACES > 60 ML/MIN (>=60 (CALC)); SGOT/AST 28 u/l (9-36); SODIUM 136 mmol/l (137-146)
[2023-08-04 20:19] LABS: TOTAL PROTEIN 6.4 g/dL (6.3-8.2)
[2023-08-04] MEDS ORDERED: ALBUTEROL SUL0.083 % IN (20:24)
[2023-08-04] MEDS ORDERED: CETIRIZINE10 MG PO (20:30)
[2023-08-04 20:31] VITALS: BP 163/75
[2023-08-04] MEDS ORDERED: VITAMIN D-32000 UNI1 PO (20:31)
[2023-08-04] MEDS ORDERED: MAGNESIUM HYDROXIDE 30 ML UDC PO PRN (20:35)
[2023-08-04] MEDS ORDERED: IPRATROPIUM-Albuterol 0.5MG-2.5MG/3 ML NEB PRN (20:35)
[2023-08-04] MEDS ORDERED: ACETAMINOPHEN 325 MG/TAB PO PRN (20:35)
[2023-08-04] MEDS ORDERED: ECHINACEA PO (20:35)
[2023-08-04] MEDS ORDERED: FOLIC ACID1 MG PO (20:37)
[2023-08-04] MEDS ORDERED: LYRICA50 MG PO (20:41)
[2023-08-04] MEDS ORDERED: METHOCARBAMOL500 MG PO (20:42)
[2023-08-04] MEDS ORDERED: MULTI VIT PO (20:42)
[2023-08-04] MEDS ORDERED: TYLENOL500 MG PO (20:45)
[2023-08-04] MEDS ORDERED: ZINC50 MG PO (20:47)
[2023-08-04 21:00] VITALS: BP 154/78
[2023-08-04] MEDS ORDERED: ENOXAPARIN SODIUM 40 MG/0.4 ML SYR SC SCH (21:00)
[2023-08-04] MEDS ORDERED: FLECAINIDE ACETATE 50 MG TAB PO SCH (21:09)
[2023-08-04] MEDS ORDERED: HYDROcodone 5 MG/Acetaminophen 325 MG/COMBO PO PRN (21:10)
[2023-08-04] MEDS ORDERED: ALPRAZolam 0.5 MG/TAB PO PRN (21:15)
[2023-08-04] MEDS ORDERED: methylPREDNISolone Sod Succ 40 MG/ML SDV IV SCH (22:00)
[2023-08-04] MEDS ORDERED: traZODone HCL 50 MG/TAB PO SCH (22:19)
[2023-08-05] VITALS (12 sets, daily range): BP systolic 130–158; BP diastolic 53–84
[2023-08-05 04:59] LABS: URINE BILIRUBIN - DIPSTICK Negative (NEGATIVE); URINE BLOOD DIPSTICK Negative (NEGATIVE); URINE CLARITY Clear; URINE COLOR Yellow; URINE GLUCOSE - DIPSTICK Negative (NEGATIVE); URINE KETONE Negative (NEGATIVE); URINE LEUK ESTERASE Negative (Negative); URINE NITRITE - DIPSTICK Negative (Negative); URINE PROTEIN - DIPSTICK Negative (NEG-TRACE); URINE UROBILINOGEN - DIPSTICK 0.2 E.U./dL (0.2)
[2023-08-05] MEDS ORDERED: DOXYCYCLINE HYCLATE 100 MG/CAP PO SCH ×2 (07:00→08:00)
[2023-08-05 07:16] LABS: BASO% 0.1 % (0-3); HEMATOCRIT 34.7 % (37.0-47.0); HEMOGLOBIN 11.2 g/dl (12.0-16.0); IMMATURE GRANULOCYTES 0.6 % (0.0-5.0); LYMPH% 10.2 % (15-41); MEAN CELL VOLUME 99.1 fL CALC (80.0-100.0); MEAN CORPUSCULAR HGB CONC 32.3 g/dL CAL (32.0-36.0); MONO% 1.3 % (2-13); NEUT# 8.8 thou/uL (2.00-7.15); NEUT% 87.8 % (42-76); RED BLOOD COUNT 3.5 mill/uL (4.20-5.60); RED CELL DISTRI WIDTH 14.4 % (11.5-15.5)
[2023-08-05] MEDS ORDERED: PATIENT' OWN MED 1 EA DOSE PO PRN (07:25)
[2023-08-05 07:34] LABS: ALKALINE PHOSPHATASE 59 u/l (38-126); ANION GAP 11 (6-22 (CALC)); BILIRUBIN, TOTAL 0.3 mg/dL (0.02-1.3); BUN 14 mg/dL (8-23); BUN/CREATININE RATIO 23 (12-20 (CALC)); CALCULATED LDLCHOLESTEROL 74 mg/dL (62-129 (CALC)); CARBON DIOXIDE 28 mmol/l (22-30); CHLORIDE 105 mmol/l (95-108); CHOLESTEROL HDL RATIO 2.3 (<4.4 (CALC)); CREATININE 0.6 mg/dL (0.5-1.0); GFR FOR AFR.AMER. > 60 ML/MIN (>=60 (CALC)); GFR OTHER RACES > 60 ML/MIN (>=60 (CALC)); HDL CHOLESTEROL 70 mg/dL (39.0-59.0); POTASSIUM 4.4 mmol/l (3.5-5.1); SGOT/AST 29 u/l (9-36); SODIUM 140 mmol/l (137-146); TOTAL CHOLESTEROL 161 mg/dl (0-199); TOTAL TRIGLYCERIDES 87 mg/dl (0-149); VLDL CHOLESTROL 17 mg/dl (0-48 (CALC))
[2023-08-05] MEDS ORDERED: dilTIAZem HCl COATED BEADS 240 MG/CAP PO SCH (09:00)
[2023-08-05] MEDS ORDERED: CLOPIDOGREL BISULFATE 75 MG/TAB TAB PO SCH (09:00)
[2023-08-05] MEDS ORDERED: FAMOTIDINE 20 MG/TAB PO SCH (09:00)
[2023-08-05] MEDS ORDERED: ESCITALOPRAM 10 MG/TAB PO SCH (09:00)
[2023-08-05] MEDS ORDERED: BUTALBITAL-APAP-CAFFEINE 50-325-40 TAB PO SCH (10:30)
[2023-08-05] MEDS ORDERED: AMOX/K CLAV875 M1 PO (16:21)
[2023-08-05] MEDS ORDERED: traZODone HCL 50 MG/TAB PO SCH (21:00)
[2023-08-05] MEDS ORDERED: PATIENT' OWN MED 1 EA DOSE PO SCH (21:00)
[2023-08-06 01:27] VITALS: BP 106/53
[2023-08-06 05:28] VITALS: BP 115/56
[2023-08-06 06:23] LABS: BASO% 0.1 % (0-3); HEMATOCRIT 34.8 % (37.0-47.0); IMMATURE GRANULOCYTES 0.6 % (0.0-5.0); LYMPH% 5.1 % (15-41); MEAN CELL VOLUME 102.1 fL CALC (80.0-100.0); MEAN CORPUSCULAR HGB 32.3 pG CALC (26.0-32.0); MEAN CORPUSCULAR HGB CONC 31.6 g/dL CAL (32.0-36.0); MONO% 2.5 % (2-13); NEUT# 19.4 thou/uL (2.00-7.15); NEUT% 91.7 % (42-76); RED BLOOD COUNT 3.41 mill/uL (4.20-5.60); RED CELL DISTRI WIDTH 14.4 % (11.5-15.5)
[2023-08-06 06:32] LABS: ALKALINE PHOSPHATASE 48 u/l (38-126); ANION GAP 14 (6-22 (CALC)); BILIRUBIN, TOTAL 0.3 mg/dL (0.02-1.3); BUN 17 mg/dL (8-23); BUN/CREATININE RATIO 29 (12-20 (CALC)); CARBON DIOXIDE 25 mmol/l (22-30); CHLORIDE 106 mmol/l (95-108); CREATININE 0.6 mg/dL (0.5-1.0); GFR FOR AFR.AMER. > 60 ML/MIN (>=60 (CALC)); GFR OTHER RACES > 60 ML/MIN (>=60 (CALC)); MAGNESIUM 2.2 mg/dL (1.6-2.3); POTASSIUM 4.8 mmol/l (3.5-5.1); SGOT/AST 34 u/l (9-36); SODIUM 140 mmol/l (137-146)
[2023-08-06 08:43] VITALS: BP 137/59
[2023-08-06] MEDS ORDERED: LEVAQUIN750 M1 PO (09:42)
== END 2023-08-06 11:45 ==
LOC: ED 17:09 → ED-I 20:10 → ED 20:38 → ICU 20:39
PROVIDERS: Nurse Practitioner; Student in an Organized Health Care Education/Training Program; ADMIT Internal Medicine; ATTEND Internal Medicine
DX: J18.9 Pneumonia, unspecified organism (principal); J44.0 Chronic obstructive pulmonary disease with (acute) lower respiratory infection; J44.1 Chronic obstructive pulmonary disease with (acute) exacerbation; J96.10 Chronic respiratory failure, unspecified whether with hypoxia or hypercapnia; J98.4 Other disorders of lung; I10 Essential (primary) hypertension; E11.9 Type 2 diabetes mellitus without complications; I48.0 Paroxysmal atrial fibrillation; I25.10 Atherosclerotic heart disease of native coronary artery without angina pectoris; F41.9 Anxiety disorder, unspecified; I25.2 Old myocardial infarction; Z99.81 Dependence on supplemental oxygen; Z87.891 Personal history of nicotine dependence; Z20.822 Contact with and (suspected) exposure to COVID-19
CPT/HCPCS: J1650

== ENCOUNTER 2024-01-24 13:02 | Inpatient (IN) | payer MEDICARE ==
[~2024-01-24] VITALS: Ht 157.5 cm; Wt 47.6 kg
[~2024-01-24 13:02] MED LIST changes: +AMOX/K CLAV875 M1 PO; +CETIRIZINE10 MG PO; +ECHINACEA PO; +FOLIC ACID1 MG PO; +IPRATROPIU0.5 MG/3 M IN; +LEVAQUIN750 M1 PO; +LYRICA50 MG PO; +MORPHINE O10 MG/5 ML PO; +MULTI VIT PO; +TYLENOL500 MG PO; +VITAMIN D-32000 UNI1 PO; +ZINC50 MG PO
[2024-01-24 13:07] VITALS: BP 130/68
[2024-01-24] MEDS ORDERED: ALBUTEROL SULFATE 2.5 MG VIAL IN ONE (13:10)
[2024-01-24] MEDS ORDERED: IPRATROPIUM-Albuterol 0.5MG-2.5MG/3 ML NEB ONE (13:10)
[2024-01-24] MEDS ORDERED: methylPREDNISolone SODIUM SUCC 125 MG/2 ML SDV IV ONE (13:15)
[2024-01-24 13:16] VITALS: BP 117/53
[2024-01-24] MEDS ORDERED: SODIUM CHLORIDE 0.9% 1,000 ML IV ONE (13:50)
[2024-01-24] MEDS ORDERED: ONDANSETRON HCl 4 MG/2 ML SDV IV ONE (14:30)
[2024-01-24 14:39] LABS: BASO% 0.3 % (0-3); EOS% 4.3 % (0-8); HEMATOCRIT 35.5 % (37.0-47.0); HEMOGLOBIN 11.7 g/dl (12.0-16.0); IMMATURE GRANULOCYTES 2.1 % (0.0-5.0); LYMPH% 36.5 % (15-41); MEAN CORPUSCULAR HGB 30.3 pG CALC (26.0-32.0); MONO% 7.5 % (2-13); NEUT# 7.19 thou/uL (2.00-7.15); NEUT% 49.3 % (42-76); RED BLOOD COUNT 3.86 mill/uL (4.20-5.60); RED CELL DISTRI WIDTH 15.5 % (11.5-15.5)
[2024-01-24] MEDS ORDERED: ACETAMINOPHEN 325 MG/TAB PO ONE (14:45)
[2024-01-24 14:51] LABS: CREATININE 0.7 mg/dL (0.5-1.0); POTASSIUM 3.5 mmol/l (3.5-5.1)
[2024-01-24] MEDS ORDERED: ACETAMINOPHEN 325 MG/TAB PO PRN (15:10)
[2024-01-24] MEDS ORDERED: MAGNESIUM HYDROXIDE 30 ML UDC PO PRN (15:10)
[2024-01-24] MEDS ORDERED: ALBUTEROL SULFATE 8 GM INH IN PRN (15:15)
[2024-01-24] MEDS ORDERED: IPRATROPIUM-Albuterol 0.5MG-2.5MG/3 ML NEB PRN (15:15)
[2024-01-24] MEDS ORDERED: DOXYCYCLINE HYCLATE 100 MG in SODIUM CHLORIDE 0.9% 100 ML IV SCH (15:15)
[2024-01-24 16:56] VITALS: BP 149/73
[2024-01-24] MEDS ORDERED: ATORVASTATIN CALCIUM 40 MG/TAB PO SCH ×2 (17:00→21:00)
[2024-01-24 18:17] VITALS: BP 138/68
[2024-01-24] MEDS ORDERED: MORPHINE SULFATE 10 MG/5 ML UDC PO PRN (19:50)
[2024-01-24] MEDS ORDERED: Zaleplon 5 MG/CAP PO PRN (19:55)
[2024-01-24] MEDS ORDERED: methylPREDNISolone Sod Succ 40 MG/ML SDV IV SCH (21:00)
[2024-01-24] MEDS ORDERED: FLECAINIDE ACETATE 50 MG TAB PO SCH (21:00)
[2024-01-24] MEDS ORDERED: ENOXAPARIN SODIUM 40 MG/0.4 ML SYR SC SCH (21:00)
[2024-01-24] MEDS ORDERED: traZODone HCL 50 MG/TAB PO SCH (21:00)
[2024-01-25 03:59] VITALS: BP 161/79
[2024-01-25 06:40] VITALS: BP 136/66
[2024-01-25 08:57] LABS: BASO% 0.4 % (0-3); HEMATOCRIT 31.3 % (37.0-47.0); HEMOGLOBIN 10.3 g/dl (12.0-16.0); LYMPH% 16.9 % (15-41); MEAN CELL VOLUME 93.2 fL CALC (80.0-100.0); MEAN CORPUSCULAR HGB 30.7 pG CALC (26.0-32.0); MEAN CORPUSCULAR HGB CONC 32.9 g/dL CAL (32.0-36.0); MONO% 5.2 % (2-13); NEUT# 5.38 thou/uL (2.00-7.15); NEUT% 75.5 % (42-76); RED BLOOD COUNT 3.36 mill/uL (4.20-5.60)
[2024-01-25] MEDS ORDERED: PANTOPRAZOLE SODIUM Sesquihydr 40 MG/TAB PO SCH (09:00)
[2024-01-25] MEDS ORDERED: FAMOTIDINE 20 MG/TAB PO SCH (09:00)
[2024-01-25 09:10] LABS: ALBUMIN 3.5 g/dL (3.2-5.0); BILIRUBIN, TOTAL 0.3 mg/dL (0.02-1.3); CREATININE 0.7 mg/dL (0.5-1.0); TOTAL PROTEIN 5.4 g/dL (6.3-8.2)
[2024-01-25] MEDS ORDERED: DIATRIZOATE MEGLUMINE & SODIUM 30 ML/BTL BTL PO SCH (10:00)
[2024-01-25 16:06] VITALS: BP 136/69
[2024-01-25 19:00] VITALS: BP 143/54
[2024-01-25 19:02] VITALS: BP 143/54
[2024-01-25] MEDS ORDERED: ONDANSETRON HCl 4 MG/2 ML SDV IV PRN (20:05)
[2024-01-25 23:41] VITALS: BP 153/63
[2024-01-26] VITALS (7 sets, daily range): BP systolic 134–185; BP diastolic 53–79
[2024-01-26 05:08] LABS: BASO% 0.2 % (0-3); EOS% 0.1 % (0-8); HEMATOCRIT 31.7 % (37.0-47.0); HEMOGLOBIN 9.9 g/dl (12.0-16.0); IMMATURE GRANULOCYTES 0.7 % (0.0-5.0); LYMPH% 8.1 % (15-41); MEAN CELL VOLUME 98.1 fL CALC (80.0-100.0); MEAN CORPUSCULAR HGB 30.7 pG CALC (26.0-32.0); MEAN CORPUSCULAR HGB CONC 31.2 g/dL CAL (32.0-36.0); MONO% 1.5 % (2-13); NEUT# 14.53 thou/uL (2.00-7.15); NEUT% 89.4 % (42-76); RED BLOOD COUNT 3.23 mill/uL (4.20-5.60)
[2024-01-26 05:19] LABS: ALBUMIN 3.4 g/dL (3.2-5.0); BILIRUBIN, TOTAL 0.3 mg/dL (0.02-1.3); CREATININE 0.6 mg/dL (0.5-1.0); MAGNESIUM 1.5 mg/dL (1.6-2.3); POTASSIUM 4.2 mmol/l (3.5-5.1); TOTAL PROTEIN 5.3 g/dL (6.3-8.2)
[2024-01-26] MEDS ORDERED: Levofloxacin 750 mg Premix 150 ML IV SCH (08:55)
[2024-01-26] MEDS ORDERED: MAGNESIUM SULFATE HEPTAHYDRATE 50 ML IV SCH (09:00)
[2024-01-26] MEDS ORDERED: Levofloxacin 500 mg Premix 100 ML IV SCH (10:00)
[2024-01-27] VITALS (10 sets, daily range): BP systolic 140–194; BP diastolic 52–79
[2024-01-27 04:40] LABS: BASO% 0.1 % (0-3); HEMATOCRIT 31.5 % (37.0-47.0); HEMOGLOBIN 10.3 g/dl (12.0-16.0); IMMATURE GRANULOCYTES 1.2 % (0.0-5.0); LYMPH% 8.2 % (15-41); MEAN CELL VOLUME 95.2 fL CALC (80.0-100.0); MEAN CORPUSCULAR HGB 31.1 pG CALC (26.0-32.0); MEAN CORPUSCULAR HGB CONC 32.7 g/dL CAL (32.0-36.0); MONO% 2.6 % (2-13); NEUT# 13.68 thou/uL (2.00-7.15); NEUT% 87.9 % (42-76); RED BLOOD COUNT 3.31 mill/uL (4.20-5.60); RED CELL DISTRI WIDTH 14.8 % (11.5-15.5)
[2024-01-27 04:57] LABS: ALBUMIN 3.6 g/dL (3.2-5.0); BILIRUBIN, TOTAL 0.2 mg/dL (0.02-1.3); CREATININE 0.7 mg/dL (0.5-1.0); MAGNESIUM 1.8 mg/dL (1.6-2.3); POTASSIUM 4.3 mmol/l (3.5-5.1); TOTAL PROTEIN 5.5 g/dL (6.3-8.2)
[2024-01-27] MEDS ORDERED: DEXTROSE 5% / 0.9% NACL 1,000 ML IV PRN (08:55)
[2024-01-27] MEDS ORDERED: amLODIPine BESYLATE 5 MG/TAB PO SCH (10:30)
[2024-01-27] MEDS ORDERED: Zaleplon 5 MG/CAP PO PRN (10:55)
[2024-01-27] MEDS ORDERED: ALPRAZolam 0.5 MG/TAB PO PRN (11:10)
[2024-01-28] VITALS (7 sets, daily range): BP systolic 131–161; BP diastolic 61–77
[2024-01-28 05:12] LABS: BASO% 0.2 % (0-3); HEMATOCRIT 32.8 % (37.0-47.0); HEMOGLOBIN 10.4 g/dl (12.0-16.0); IMMATURE GRANULOCYTES 1.7 % (0.0-5.0); LYMPH% 10.3 % (15-41); MEAN CELL VOLUME 96.2 fL CALC (80.0-100.0); MEAN CORPUSCULAR HGB 30.5 pG CALC (26.0-32.0); MEAN CORPUSCULAR HGB CONC 31.7 g/dL CAL (32.0-36.0); MONO% 3.3 % (2-13); NEUT# 10.16 thou/uL (2.00-7.15); NEUT% 84.5 % (42-76); RED BLOOD COUNT 3.41 mill/uL (4.20-5.60); RED CELL DISTRI WIDTH 14.8 % (11.5-15.5)
[2024-01-28 05:30] LABS: ALBUMIN 3.5 g/dL (3.2-5.0); MAGNESIUM 1.9 mg/dL (1.6-2.3); POTASSIUM 4.3 mmol/l (3.5-5.1); TOTAL PROTEIN 5.4 g/dL (6.3-8.2)
[2024-01-28 05:34] LABS: CREATININE 0.7 mg/dL (0.5-1.0)
[2024-01-28 05:35] LABS: BILIRUBIN, TOTAL 0.3 mg/dL (0.02-1.3)
[2024-01-29] VITALS (7 sets, daily range): BP systolic 144–194; BP diastolic 68–76
[2024-01-29 04:56] LABS: BASO% 0.1 % (0-3); HEMATOCRIT 32.5 % (37.0-47.0); HEMOGLOBIN 10.5 g/dl (12.0-16.0); IMMATURE GRANULOCYTES 2.2 % (0.0-5.0); LYMPH% 7.7 % (15-41); MEAN CELL VOLUME 96.7 fL CALC (80.0-100.0); MEAN CORPUSCULAR HGB 31.3 pG CALC (26.0-32.0); MEAN CORPUSCULAR HGB CONC 32.3 g/dL CAL (32.0-36.0); MONO% 5.6 % (2-13); NEUT# 7.65 thou/uL (2.00-7.15); NEUT% 84.4 % (42-76); RED BLOOD COUNT 3.36 mill/uL (4.20-5.60); RED CELL DISTRI WIDTH 14.8 % (11.5-15.5)
[2024-01-29 05:22] LABS: ALBUMIN 3.3 g/dL (3.2-5.0); BILIRUBIN, TOTAL 0.3 mg/dL (0.02-1.3); CREATININE 0.8 mg/dL (0.5-1.0); MAGNESIUM 1.8 mg/dL (1.6-2.3); TOTAL PROTEIN 5.1 g/dL (6.3-8.2)
[2024-01-29 05:24] LABS: POTASSIUM 4.1 mmol/l (3.5-5.1)
[2024-01-29] MEDS ORDERED: PREDNISONE10 MG PO (09:54)
[2024-01-29] MEDS ORDERED: AMLODIPINE BESYL5 MG PO (09:55)
[2024-01-29] MEDS ORDERED: LEVOFLOXACIN500MG PO (09:55)
[2024-01-29] MEDS ORDERED: METRONIDAZOLE500 MG PO (09:56)
== END 2024-01-29 15:49 | disposition home or self-care (01) | DRG 178 ==
LOC: ED 13:02 → ED-I 13:49 → ED 13:49 → ED-I 15:00 → ED 15:09 → MS2 15:10
PROVIDERS: Family Medicine; Nurse Practitioner Family; ADMIT Internal Medicine; ATTEND Internal Medicine
DX: U07.1 COVID-19 (principal); A08.39 Other viral enteritis; J44.1 Chronic obstructive pulmonary disease with (acute) exacerbation; J96.12 Chronic respiratory failure with hypercapnia; S06.0X0A Concussion without loss of consciousness, initial encounter; I10 Essential (primary) hypertension; E11.9 Type 2 diabetes mellitus without complications; I48.91 Unspecified atrial fibrillation; I25.10 Atherosclerotic heart disease of native coronary artery without angina pectoris; E78.5 Hyperlipidemia, unspecified; I25.2 Old myocardial infarction; F41.9 Anxiety disorder, unspecified; G89.29 Other chronic pain; W22.03XA Walked into furniture, initial encounter; Z99.81 Dependence on supplemental oxygen; Z87.891 Personal history of nicotine dependence; Z79.891 Long term (current) use of opiate analgesic
CPT/HCPCS: J1650; J1956; J3475

== ENCOUNTER 2024-04-08 17:24 | Emergency (ER) | payer MEDICARE ==
[2024-04-08] VITALS (13 sets, daily range): BP systolic 150–204; BP diastolic 73–109
[~2024-04-08] VITALS: Ht 157.5 cm; Wt 54.4 kg
[~2024-04-08 17:24] MED LIST changes: +LEVOFLOXACIN500MG PO; +METRONIDAZOLE500 MG PO
[2024-04-08] MEDS ORDERED: SODIUM CHLORIDE 0.9% 1,000 ML IV STA (17:33)
[2024-04-08] MEDS ORDERED: PROMETHAZINE HCL 25 MG/ML AMP IV ONE (17:35)
[2024-04-08] MEDS ORDERED: LOPERAMIDE HCL 2 MG CAP PO ONE (17:35)
[2024-04-08] MEDS ORDERED: IPRATROPIUM-Albuterol 0.5MG-2.5MG/3 ML NEB ONE (17:40)
[2024-04-08] MEDS ORDERED: CLOPIDOGREL75 MG PO (17:50)
[2024-04-08] MEDS ORDERED: TIADYLT ER180 MG PO (17:53)
[2024-04-08 18:29] LABS: BASO% 0.3 % (0-3); HEMATOCRIT 34.6 % (37.0-47.0); HEMOGLOBIN 10.7 g/dl (12.0-16.0); IMMATURE GRANULOCYTES 0.4 % (0.0-5.0); MEAN CELL VOLUME 95.8 fL CALC (80.0-100.0); MEAN CORPUSCULAR HGB 29.6 pG CALC (26.0-32.0); MEAN CORPUSCULAR HGB CONC 30.9 g/dL CAL (32.0-36.0); MONO% 8.2 % (2-13); NEUT# 9.74 thou/uL (2.00-7.15); NEUT% 67.1 % (42-76); RED BLOOD COUNT 3.61 mill/uL (4.20-5.60); RED CELL DISTRI WIDTH 14.7 % (11.5-15.5)
[2024-04-08 18:42] LABS: CREATININE 0.7 mg/dL (0.5-1.0); POTASSIUM 3.3 mmol/l (3.5-5.1)
[2024-04-08 18:59] LABS: BILIRUBIN, TOTAL 0.7 mg/dL (0.02-1.3); TOTAL PROTEIN 6.5 g/dL (6.3-8.2)
[2024-04-08] MEDS ORDERED: LACTATED RINGER'S 1,000 ML IV ONE ×2 (19:10→21:25)
[2024-04-08 19:50] LABS: URINE BILIRUBIN - DIPSTICK Negative (NEGATIVE); URINE BLOOD DIPSTICK Trace-lysed (NEGATIVE); URINE GLUCOSE - DIPSTICK Negative (NEGATIVE); URINE KETONE Negative (NEGATIVE); URINE LEUK ESTERASE Negative (NEGATIVE); URINE NITRITE - DIPSTICK Negative (Negative); URINE PROTEIN - DIPSTICK Negative (NEG-TRACE); URINE UROBILINOGEN - DIPSTICK 0.2 E.U./dL (0.2)
[2024-04-08 19:52] LABS: URINE COLOR Yellow
[2024-04-08] MEDS ORDERED: PROCHLORPERAZINE EDISYLATE 10 MG/2 ML SDV IV ONE ×2 (20:10→22:15)
[2024-04-08] MEDS ORDERED: MORPHINE SULFATE 4 MG/ML VIAL IV STA (20:26)
[2024-04-08] MEDS ORDERED: KETOROLAC TROMETHAMINE 30 MG/ML SDV IV ONE (20:30)
[2024-04-08] MEDS ORDERED: HYDROmorphone HCL 2 MG/AMP IV STA (22:11)
[2024-04-08] MEDS ORDERED: DICYCLOMINE HCL 10 MG/CAP PO ONE (23:35)
[2024-04-08] MEDS ORDERED: CIPROFLOXACIN HCL 500 MG/TAB PO ONE (23:35)
[2024-04-08] MEDS ORDERED: DICYCLOMINE HYD10 MG PO (23:38)
[2024-04-08] MEDS ORDERED: COMPAZINE10 MG PO (23:38)
[2024-04-08] MEDS ORDERED: CIPROFLOXACN500 MG PO (23:38)
[2024-04-09 00:02] VITALS: BP 151/66
== END 2024-04-09 00:14 | disposition home or self-care (01) ==
LOC: ED 17:24
PROVIDERS: Family Medicine
DX: A08.4 Viral intestinal infection, unspecified (principal); J44.1 Chronic obstructive pulmonary disease with (acute) exacerbation; J96.10 Chronic respiratory failure, unspecified whether with hypoxia or hypercapnia; I10 Essential (primary) hypertension; E11.9 Type 2 diabetes mellitus without complications; I25.2 Old myocardial infarction; F41.9 Anxiety disorder, unspecified; Z99.81 Dependence on supplemental oxygen; Z20.822 Contact with and (suspected) exposure to COVID-19
CPT/HCPCS: Q9967

== ENCOUNTER 2024-05-29 16:03 | Inpatient (IN) | payer MEDICARE ==
[2024-05-29] VITALS (26 sets, daily range): BP systolic 129–208; BP diastolic 45–136
[~2024-05-29] VITALS: Ht 157.5 cm; Wt 44.0 kg
[~2024-05-29 16:03] MED LIST changes: +CLOPIDOGREL75 MG PO; +COMPAZINE10 MG PO; +DICYCLOMINE HYD10 MG PO; +TIADYLT ER180 MG PO
[2024-05-29] MEDS ORDERED: SODIUM CHLORIDE 0.9% 1,000 ML IV ONE (16:45)
[2024-05-29] MEDS ORDERED: ONDANSETRON HCl 4 MG/2 ML SDV IV ONE (16:45)
[2024-05-29] MEDS ORDERED: hydrALAZINE HCL 20 MG/ML VIAL(1 ML) IV ONE (16:50)
[2024-05-29 17:01] LABS: BASO% 0.3 % (0-3); EOS% 1.3 % (0-8); HEMATOCRIT 35.9 % (37.0-47.0); HEMOGLOBIN 11.4 g/dl (12.0-16.0); IMMATURE GRANULOCYTES 0.3 % (0.0-5.0); LYMPH% 4.9 % (15-41); MEAN CELL VOLUME 96.8 fL CALC (80.0-100.0); MEAN CORPUSCULAR HGB 30.7 pG CALC (26.0-32.0); MEAN CORPUSCULAR HGB CONC 31.8 g/dL CAL (32.0-36.0); NEUT# 22.59 thou/uL (2.00-7.15); NEUT% 86.2 % (42-76); RED BLOOD COUNT 3.71 mill/uL (4.20-5.60); RED CELL DISTRI WIDTH 14.9 % (11.5-15.5)
[2024-05-29 17:22] LABS: ALBUMIN 4.1 g/dL (3.2-5.0); BILIRUBIN, TOTAL 0.8 mg/dL (0.02-1.3); CREATININE 0.6 mg/dL (0.5-1.0); POTASSIUM 3.1 mmol/l (3.5-5.1); TOTAL PROTEIN 6.6 g/dL (6.3-8.2)
[2024-05-29] MEDS ORDERED: METOCLOPRAMIDE HCL 10 MG/2 ML SDV IV ONE (17:25)
[2024-05-29] MEDS ORDERED: ISOVUE-300 (Iopamidol) 100 ML SDV IV ONE (17:25)
[2024-05-29] MEDS ORDERED: HALOPERIDOL LACTATE 5 MG/ML SDV IV ONE (18:15)
[2024-05-29 18:37] LABS: URINE BILIRUBIN - DIPSTICK Negative (NEGATIVE); URINE BLOOD DIPSTICK Trace-intact (NEGATIVE); URINE COLOR Yellow; URINE GLUCOSE - DIPSTICK Negative (NEGATIVE); URINE KETONE Negative (NEGATIVE); URINE LEUK ESTERASE Negative (NEGATIVE); URINE NITRITE - DIPSTICK Negative (Negative); URINE PH 8.5 (4.5-8.0); URINE PROTEIN - DIPSTICK Negative (NEG-TRACE); URINE UROBILINOGEN - DIPSTICK 0.2 E.U./dL (0.2)
[2024-05-29] MEDS ORDERED: ACETAMINOPHEN 325 MG/TAB PO PRN (21:20)
[2024-05-29] MEDS ORDERED: MAGNESIUM HYDROXIDE 30 ML UDC PO PRN (21:20)
[2024-05-29] MEDS ORDERED: SODIUM CHLORIDE 0.9% 1,000 ML IV PRN (21:20)
[2024-05-29] MEDS ORDERED: ONDANSETRON HCl 4 MG/2 ML SDV IV PRN (21:25)
[2024-05-29] MEDS ORDERED: MORPHINE SULFATE 4 MG/ML VIAL IV PRN ×2 (21:25→21:55)
[2024-05-29] MEDS ORDERED: IPRATROPIUM BROMIDE 0.5 MG/2.5 ML SOL IN PRN (21:30)
[2024-05-29] MEDS ORDERED: LEVALBUTEROL HCL 1.25 MG/3 ML VIAL NEB PRN (21:30)
[2024-05-29] MEDS ORDERED: ALPRAZolam 0.25 MG PO PRN (21:45)
[2024-05-29] MEDS ORDERED: Pantoprazole Sodium 40 MG VIAL (Protonix) IV SCH (21:45)
[2024-05-29] MEDS ORDERED: hydrALAZINE HCL 20 MG/ML VIAL(1 ML) IV PRN (22:10)
[2024-05-30] VITALS (8 sets, daily range): BP systolic 83–143; BP diastolic 27–61
[2024-05-30] MEDS ORDERED: PIPERACILLIN Sodium-Tazobactam 4.5 GM in SODIUM CHLORIDE 0.9% 100 ML IV SCH
[2024-05-30 07:03] LABS: BASO% 0.4 % (0-3); EOS% 3.2 % (0-8); HEMATOCRIT 30.8 % (37.0-47.0); HEMOGLOBIN 9.8 g/dl (12.0-16.0); IMMATURE GRANULOCYTES 0.3 % (0.0-5.0); LYMPH% 7.4 % (15-41); MEAN CELL VOLUME 97.8 fL CALC (80.0-100.0); MEAN CORPUSCULAR HGB 31.1 pG CALC (26.0-32.0); MEAN CORPUSCULAR HGB CONC 31.8 g/dL CAL (32.0-36.0); MONO% 5.5 % (2-13); NEUT# 12.93 thou/uL (2.00-7.15); NEUT% 83.2 % (42-76); RED BLOOD COUNT 3.15 mill/uL (4.20-5.60); RED CELL DISTRI WIDTH 15.7 % (11.5-15.5)
[2024-05-30 07:14] LABS: BILIRUBIN, TOTAL 0.9 mg/dL (0.02-1.3); CHOLESTEROL HDL RATIO 2.3 (<4.4 (CALC)); CREATININE 0.8 mg/dL (0.5-1.0); MAGNESIUM 1.7 mg/dL (1.6-2.3); POTASSIUM 3.2 mmol/l (3.5-5.1)
[2024-05-30 07:15] LABS: ALBUMIN 3.1 g/dL (3.2-5.0)
[2024-05-30] MEDS ORDERED: CLOPIDOGREL BISULFATE 75 MG/TAB TAB PO SCH (09:00)
[2024-05-30] MEDS ORDERED: PREGABALIN 75 MG/CAP PO SCH ×2 (09:00→10:00)
[2024-05-30] MEDS ORDERED: Cholecalciferol 2,000 UNIT/TAB PO SCH (09:00)
[2024-05-30] MEDS ORDERED: ESCITALOPRAM 10 MG/TAB PO SCH (09:00)
[2024-05-30] MEDS ORDERED: FOLIC ACID 1 MG/TAB PO SCH (09:00)
[2024-05-30] MEDS ORDERED: FLECAINIDE ACETATE 50 MG TAB PO SCH (09:00)
[2024-05-30] MEDS ORDERED: DILTIAZEM HCl COATED BEADS 180 MG/CAP PO SCH (09:00)
[2024-05-30] MEDS ORDERED: PIPERACILLIN Sodium-Tazobactam 3.375 GM in SODIUM CHLORIDE 0.9% 100 ML IV SCH ×2 (12:00)
[2024-05-30] MEDS ORDERED: ENOXAPARIN SODIUM 40 MG/0.4 ML SYR SC SCH (21:00)
[2024-05-30] MEDS ORDERED: traZODone HCL 50 MG/TAB PO SCH (21:00)
[2024-05-30] MEDS ORDERED: ENOXAPARIN SODIUM 30 MG/0.3 ML INJ SC SCH (21:00)
[2024-05-31 03:31] VITALS: BP 145/58
[2024-05-31 05:37] LABS: BASO% 0.5 % (0-3); EOS% 8.6 % (0-8); HEMATOCRIT 27.5 % (37.0-47.0); HEMOGLOBIN 8.6 g/dl (12.0-16.0); IMMATURE GRANULOCYTES 0.5 % (0.0-5.0); LYMPH% 9.6 % (15-41); MEAN CELL VOLUME 100.7 fL CALC (80.0-100.0); MEAN CORPUSCULAR HGB 31.5 pG CALC (26.0-32.0); MEAN CORPUSCULAR HGB CONC 31.3 g/dL CAL (32.0-36.0); MONO% 8.1 % (2-13); NEUT# 6.73 thou/uL (2.00-7.15); NEUT% 72.7 % (42-76); RED BLOOD COUNT 2.73 mill/uL (4.20-5.60); RED CELL DISTRI WIDTH 16.1 % (11.5-15.5)
[2024-05-31 05:49] LABS: ALBUMIN 2.7 g/dL (3.2-5.0); CREATININE 0.8 mg/dL (0.5-1.0); MAGNESIUM 1.7 mg/dL (1.6-2.3); POTASSIUM 3.1 mmol/l (3.5-5.1); TOTAL PROTEIN 4.6 g/dL (6.3-8.2)
[2024-05-31 05:50] LABS: BILIRUBIN, TOTAL 0.3 mg/dL (0.02-1.3)
[2024-05-31 06:39] VITALS: BP 177/77
[2024-05-31] MEDS ORDERED: POTASSIUM CHLORIDE 20 MEQ/TAB PO SCH (08:00)
[2024-05-31 10:43] VITALS: BP 157/57
[2024-05-31] MEDS ORDERED: LEVALBUTEROL HCL 1.25 MG/3 ML VIAL NEB SCH (11:00)
[2024-05-31] MEDS ORDERED: FUROSEMIDE 40 MG/4 ML SDV IV SCH (12:30)
[2024-05-31] MEDS ORDERED: GUAIFENESIN 600 MG/TAB PO SCH (12:30)
[2024-05-31] MEDS ORDERED: PATIENT' OWN MED 1 EA DOSE PO SCH (13:00)
[2024-05-31] MEDS ORDERED: MORPHINE SULFATE 10 MG/5 ML UDC PO PRN (13:30)
[2024-05-31] MEDS ORDERED: methylPREDNISolone Sod Succ 40 MG/ML SDV IV SCH (14:00)
[2024-05-31] MEDS ORDERED: ACETYLCYSTEINE 20% 200 MG/ML SDV IN SCH (15:00)
[2024-06-01] VITALS (9 sets, daily range): BP systolic 96–128; BP diastolic 34–58
[2024-06-01 05:47] LABS: BASO% 0.1 % (0-3); EOS% 0.1 % (0-8); HEMATOCRIT 32.1 % (37.0-47.0); HEMOGLOBIN 10.1 g/dl (12.0-16.0); IMMATURE GRANULOCYTES 0.3 % (0.0-5.0); LYMPH% 6.3 % (15-41); MEAN CELL VOLUME 99.1 fL CALC (80.0-100.0); MEAN CORPUSCULAR HGB 31.2 pG CALC (26.0-32.0); MEAN CORPUSCULAR HGB CONC 31.5 g/dL CAL (32.0-36.0); MONO% 2.5 % (2-13); NEUT# 14.02 thou/uL (2.00-7.15); NEUT% 90.7 % (42-76); RED BLOOD COUNT 3.24 mill/uL (4.20-5.60); RED CELL DISTRI WIDTH 15.7 % (11.5-15.5)
[2024-06-01 06:21] LABS: BILIRUBIN, TOTAL 0.4 mg/dL (0.02-1.3); CREATININE 0.7 mg/dL (0.5-1.0); MAGNESIUM 1.9 mg/dL (1.6-2.3); TOTAL PROTEIN 5.5 g/dL (6.3-8.2)
[2024-06-01 06:24] LABS: ALBUMIN 3.4 g/dL (3.2-5.0); POTASSIUM 4.1 mmol/l (3.5-5.1)
[2024-06-01] MEDS ORDERED: predniSONE 10 MG/TAB PO SCH (09:00)
[2024-06-01] MEDS ORDERED: PATIENT' OWN MED 1 EA DOSE PO SCH (09:00)
[2024-06-01] MEDS ORDERED: FUROSEMIDE 40 MG/4 ML SDV IV SCH (10:00)
[2024-06-02] VITALS (8 sets, daily range): BP systolic 135–174; BP diastolic 56–74
[2024-06-02 05:17] LABS: BASO% 0.1 % (0-3); EOS% 0.1 % (0-8); HEMATOCRIT 30.1 % (37.0-47.0); HEMOGLOBIN 9.5 g/dl (12.0-16.0); IMMATURE GRANULOCYTES 0.5 % (0.0-5.0); LYMPH% 6.6 % (15-41); MEAN CELL VOLUME 98.7 fL CALC (80.0-100.0); MEAN CORPUSCULAR HGB 31.1 pG CALC (26.0-32.0); MEAN CORPUSCULAR HGB CONC 31.6 g/dL CAL (32.0-36.0); MONO% 7.9 % (2-13); NEUT# 16.35 thou/uL (2.00-7.15); NEUT% 84.8 % (42-76); RED BLOOD COUNT 3.05 mill/uL (4.20-5.60); RED CELL DISTRI WIDTH 15.3 % (11.5-15.5)
[2024-06-02 05:28] LABS: ALBUMIN 3.1 g/dL (3.2-5.0); CREATININE 0.7 mg/dL (0.5-1.0)
[2024-06-02 05:45] LABS: BILIRUBIN, TOTAL 0.2 mg/dL (0.02-1.3); POTASSIUM 3.2 mmol/l (3.5-5.1)
[2024-06-02] MEDS ORDERED: POTASSIUM CHLORIDE 20 MEQ/TAB PO SCH (08:00)
[2024-06-03 04:36] VITALS: BP 184/81
[2024-06-03 04:42] VITALS: BP 174/80
[2024-06-03 05:23] LABS: BASO% 0.1 % (0-3); HEMATOCRIT 33.3 % (37.0-47.0); HEMOGLOBIN 10.3 g/dl (12.0-16.0); IMMATURE GRANULOCYTES 0.3 % (0.0-5.0); LYMPH% 9.9 % (15-41); MEAN CELL VOLUME 100.3 fL CALC (80.0-100.0); MEAN CORPUSCULAR HGB CONC 30.9 g/dL CAL (32.0-36.0); NEUT# 12.25 thou/uL (2.00-7.15); NEUT% 79.7 % (42-76); RED BLOOD COUNT 3.32 mill/uL (4.20-5.60); RED CELL DISTRI WIDTH 15.7 % (11.5-15.5)
[2024-06-03 05:45] LABS: ALBUMIN 3.1 g/dL (3.2-5.0); CREATININE 0.8 mg/dL (0.5-1.0); MAGNESIUM 1.9 mg/dL (1.6-2.3); TOTAL PROTEIN 5.1 g/dL (6.3-8.2)
[2024-06-03 05:58] LABS: BILIRUBIN, TOTAL 0.4 mg/dL (0.02-1.3); POTASSIUM 3.9 mmol/l (3.5-5.1)
[2024-06-03 06:57] VITALS: BP 171/71
[2024-06-03 10:48] VITALS: BP 123/51
== END 2024-06-03 14:03 | disposition home or self-care (01) | DRG 391 ==
LOC: ED 16:03 → ED-I 18:50 → ED 19:09 → MS2 19:10
PROVIDERS: Family Medicine; Nurse Practitioner Family; ADMIT Student in an Organized Health Care Education/Training Program; ATTEND Student in an Organized Health Care Education/Training Program
DX: K57.32 Diverticulitis of large intestine without perforation or abscess without bleeding (principal); I50.33 Acute on chronic diastolic (congestive) heart failure; J18.9 Pneumonia, unspecified organism; J96.12 Chronic respiratory failure with hypercapnia; J44.1 Chronic obstructive pulmonary disease with (acute) exacerbation; J44.0 Chronic obstructive pulmonary disease with (acute) lower respiratory infection; I11.0 Hypertensive heart disease with heart failure; E11.9 Type 2 diabetes mellitus without complications; I48.0 Paroxysmal atrial fibrillation; J43.1 Panlobular emphysema; I25.10 Atherosclerotic heart disease of native coronary artery without angina pectoris; E87.6 Hypokalemia; D64.9 Anemia, unspecified; F41.9 Anxiety disorder, unspecified; I25.2 Old myocardial infarction; Z99.81 Dependence on supplemental oxygen
CPT/HCPCS: J0360; J1650; J1940; J2405; J2470; J2543; Q9967

== ENCOUNTER 2024-07-11 06:10 | Emergency (ER) | payer MEDICARE ==
[2024-07-11] VITALS (7 sets, daily range): BP systolic 126–146; BP diastolic 49–61
[~2024-07-11] VITALS: Ht 157.5 cm; Wt 44.0 kg
[2024-07-11] MEDS ORDERED: LIDOCAINE VISCOUS 2% 15 ML UDC MT ONE (08:10)
[2024-07-11] MEDS ORDERED: Acetaminophen 300 MG/Codeine 30 MG/COMBO PO ONE (08:10)
[2024-07-11] MEDS ORDERED: TYLENOL # 31 TA1 PO (11:14)
== END 2024-07-11 12:12 | disposition home or self-care (01) ==
LOC: ED 06:10
PROC: 0HQLXZZ Repair Left Lower Leg Skin, External Approach (ICD-10-PCS; principal; 2024-07-11)
PROC: 0HQKXZZ Repair Right Lower Leg Skin, External Approach (ICD-10-PCS; 2024-07-11)
DX: S22.41XA Multiple fractures of ribs, right side, initial encounter for closed fracture (principal); S81.812A Laceration without foreign body, left lower leg, initial encounter; S00.93XA Contusion of unspecified part of head, initial encounter; S81.811A Laceration without foreign body, right lower leg, initial encounter; I10 Essential (primary) hypertension; E11.9 Type 2 diabetes mellitus without complications; J44.9 Chronic obstructive pulmonary disease, unspecified; I25.10 Atherosclerotic heart disease of native coronary artery without angina pectoris; I48.91 Unspecified atrial fibrillation; F41.9 Anxiety disorder, unspecified; I25.2 Old myocardial infarction; W01.0XXA Fall on same level from slipping, tripping and stumbling without subsequent striking against object, initial encounter; Z99.81 Dependence on supplemental oxygen; Z87.891 Personal history of nicotine dependence

== ENCOUNTER 2024-07-15 02:37 | Emergency (ER) | payer MEDICARE ==
[~2024-07-15] VITALS: Ht 157.5 cm; Wt 43.0 kg
[~2024-07-15 02:37] MED LIST changes: +TYLENOL # 31 TA1 PO
[2024-07-15 05:33] LABS: BASO% 0.2 % (0-3); EOS% 1.2 % (0-8); HEMATOCRIT 29.5 % (37.0-47.0); HEMOGLOBIN 9.5 g/dl (12.0-16.0); LYMPH% 9.4 % (15-41); MEAN CORPUSCULAR HGB 31.9 pG CALC (26.0-32.0); MEAN CORPUSCULAR HGB CONC 32.2 g/dL CAL (32.0-36.0); MONO% 8.3 % (2-13); NEUT# 13.06 thou/uL (2.00-7.15); NEUT% 79.9 % (42-76); RED BLOOD COUNT 2.98 mill/uL (4.20-5.60); RED CELL DISTRI WIDTH 15.1 % (11.5-15.5)
[2024-07-15 05:54] LABS: ALBUMIN 3.5 g/dL (3.2-5.0); BILIRUBIN, TOTAL 0.5 mg/dL (0.02-1.3); POTASSIUM 3.7 mmol/l (3.5-5.1); TOTAL PROTEIN 5.7 g/dL (6.3-8.2)
[2024-07-15 07:24] LABS: URINE BILIRUBIN - DIPSTICK Negative (NEGATIVE); URINE BLOOD DIPSTICK Negative (NEGATIVE); URINE GLUCOSE - DIPSTICK Negative (NEGATIVE); URINE KETONE Trace mg/dL (NEGATIVE); URINE LEUK ESTERASE Negative (NEGATIVE); URINE NITRITE - DIPSTICK Negative (Negative); URINE PROTEIN - DIPSTICK Trace mg/dL (NEG-TRACE); URINE SPECIFIC GRAVITY >=1.030; URINE UROBILINOGEN - DIPSTICK 0.2 E.U./dL (0.2)
[2024-07-15 07:26] LABS: URINE COLOR Yellow
[2024-07-15 08:43] VITALS: BP 138/55
== END 2024-07-15 08:45 | disposition home or self-care (01) ==
LOC: ED 02:37
PROVIDERS: Emergency Medicine
PROC: 0HQEXZZ Repair Left Lower Arm Skin, External Approach (ICD-10-PCS; principal; 2024-07-15)
PROC: 2W3FX1Z Immobilization of Left Hand using Splint (ICD-10-PCS; 2024-07-15)
DX: S51.812A Laceration without foreign body of left forearm, initial encounter (principal); S61.412A Laceration without foreign body of left hand, initial encounter; S62.647A Nondisplaced fracture of proximal phalanx of left little finger, initial encounter for closed fracture; J44.9 Chronic obstructive pulmonary disease, unspecified; F41.9 Anxiety disorder, unspecified; I10 Essential (primary) hypertension; E78.5 Hyperlipidemia, unspecified; G89.29 Other chronic pain; E11.9 Type 2 diabetes mellitus without complications; I25.10 Atherosclerotic heart disease of native coronary artery without angina pectoris; I48.91 Unspecified atrial fibrillation; I25.2 Old myocardial infarction; F03.90 Unspecified dementia, unspecified severity, without behavioral disturbance, psychotic disturbance, mood disturbance, and anxiety; W19.XXXA Unspecified fall, initial encounter; Y92.000 Kitchen of unspecified non-institutional (private) residence as the place of occurrence of the external cause; M25.552 Pain in left hip; S22.31XD Fracture of one rib, right side, subsequent encounter for fracture with routine healing; S81.812D Laceration without foreign body, left lower leg, subsequent encounter; S81.811D Laceration without foreign body, right lower leg, subsequent encounter; W19.XXXD Unspecified fall, subsequent encounter; Z86.73 Personal history of transient ischemic attack (TIA), and cerebral infarction without residual deficits; Z79.891 Long term (current) use of opiate analgesic; Z99.81 Dependence on supplemental oxygen; Z91.81 History of falling; Z87.891 Personal history of nicotine dependence

== ENCOUNTER 2024-08-30 19:31 | Inpatient (IN) | payer MEDICARE ==
[~2024-08-30] VITALS: Ht 157.5 cm; Wt 43.0 kg
[~2024-08-30 19:31] MED LIST changes: +B121000 MCG; +CHOLECALCIFEROL; +DILTIAZEM HCI120 MG PO; +ECHINACEA; +FOLATE; +MORPHINE; +OXYGEN; +PROCHLORPER PO; +TRELEGY ELLIPTA1 AER; +VITAMIN C1000 MG PO; +ZINC50 M1 PO; +ZOLPIDEM5 M1 PO
--- NOTE | 2024-08-30 19:31 | NUR ---
PT TO [facility] VIA WHEELCHAIR
[2024-08-30] MEDS ORDERED: IPRATROPIUM-Albuterol 0.5MG-2.5MG/3 ML NEB ONE (19:40)
[2024-08-30] MEDS ORDERED: methylPREDNISolone SODIUM SUCC 125 MG/2 ML SDV IV ONE (19:40)
[2024-08-30 20:00] VITALS: BP 137/64
[2024-08-30 20:07] LABS: BASO% 0.3 % (0-3); EOS% 4.1 % (0-8); HEMATOCRIT 33.1 % (37.0-47.0); HEMOGLOBIN 10.2 g/dl (12.0-16.0); IMMATURE GRANULOCYTES 0.4 % (0.0-5.0); LYMPH% 8.5 % (15-41); MEAN CELL VOLUME 97.1 fL CALC (80.0-100.0); MEAN CORPUSCULAR HGB 29.9 pG CALC (26.0-32.0); MEAN CORPUSCULAR HGB CONC 30.8 g/dL CAL (32.0-36.0); MONO% 6.3 % (2-13); NEUT# 16.61 thou/uL (2.00-7.15); NEUT% 80.4 % (42-76); RED BLOOD COUNT 3.41 mill/uL (4.20-5.60); RED CELL DISTRI WIDTH 14.6 % (11.5-15.5)
[2024-08-30 20:18] LABS: ALBUMIN 3.4 g/dL (3.2-5.0); ANION GAP 11 (6-22 (CALC)); BUN 11 mg/dL (8-23); BUN/CREATININE RATIO 16 (12-20 (CALC)); CARBON DIOXIDE 29 mmol/l (22-30); CHLORIDE 97 mmol/l (95-108); CREATININE 0.7 mg/dL (0.5-1.0); ESTIMATED GFR 90 ML/MIN (>=90 (CALC)); POTASSIUM 3.9 mmol/l (3.5-5.1); SGOT/AST 24 u/l (9-36); SODIUM 133 mmol/l (137-146); TOTAL PROTEIN 5.9 g/dL (6.3-8.2)
[2024-08-30 20:19] LABS: ALKALINE PHOSPHATASE 95 u/l (38-126)
[2024-08-30 20:28] VITALS: BP 150/69
[2024-08-30 20:30] VITALS: BP 146/60
[2024-08-30] MEDS ORDERED: ACETAMINOPHEN 500 MG TAB PO ONE (20:30)
[2024-08-30] MEDS ORDERED: SODIUM CHLORIDE 0.9% 1,000 ML IV ONE (20:30)
--- NOTE | 2024-08-30 21:36 | NUR ---
OATJULIETTE STRAIGHT CATHED AT THIS TIME FOR URINE. ADDITIONAL STAFF X1 AND DAUGHTER AT BEDSIDE.
[2024-08-30 21:45] LABS: URINE BILIRUBIN - DIPSTICK Negative (NEGATIVE); URINE BLOOD DIPSTICK Negative (NEGATIVE); URINE COLOR Yellow; URINE GLUCOSE - DIPSTICK Negative (NEGATIVE); URINE KETONE 15 mg/dL (NEGATIVE); URINE LEUK ESTERASE Negative (NEGATIVE); URINE NITRITE - DIPSTICK Negative (Negative); URINE PH 8.5 (4.5-8.0); URINE PROTEIN - DIPSTICK Negative (NEG-TRACE)
[2024-08-30] MEDS ORDERED: ROFLUMILAST250 MCG PO (21:55)
[2024-08-30] MEDS ORDERED: DOXYCYCLINE HYCLATE 100 MG in SODIUM CHLORIDE 0.9% 100 ML IV ONE (21:55)
[2024-08-30] MEDS ORDERED: IBUPROFEN 800 MG/TAB PO PRN (22:00)
[2024-08-30] MEDS ORDERED: SODIUM CHLORIDE 0.9% 1,000 ML IV PRN (22:00)
[2024-08-30] MEDS ORDERED: ONDANSETRON HCl 4 MG/2 ML SDV IV PRN (22:00)
[2024-08-30] MEDS ORDERED: ALUM & MAG HYDROX-SIMETHICONE 30 ML PO PRN ×2 (22:00→22:25)
[2024-08-30] MEDS ORDERED: ONDANSETRON 4 MG/TAB ODT PO PRN (22:00)
[2024-08-30] MEDS ORDERED: methylPREDNISolone Sod Succ 40 MG/ML SDV IV SCH (22:00)
[2024-08-30] MEDS ORDERED: FAMOTIDINE 10MG/ML 2ML SDV IV PRN (22:00)
[2024-08-30] MEDS ORDERED: ENOXAPARIN SODIUM 40 MG/0.4 ML SYR SC ONE (22:00)
[2024-08-30] MEDS ORDERED: Polyethylene Glycol 3350 17 GM/PKT PO PRN (22:00)
[2024-08-30] MEDS ORDERED: MORPHINE SULF PO (22:01)
[2024-08-30] MEDS ORDERED: [UNRECOGNIZED DRUG - OTHER] PO (22:01)
[2024-08-30] MEDS ORDERED: ACID CONTROL MA20 MG PO (22:02)
[2024-08-30] MEDS ORDERED: ECHINACEA125 MG PO (22:04)
[2024-08-30] MEDS ORDERED: FOLATE400 MCG PO (22:05)
[2024-08-30] MEDS ORDERED: ACETAMINOPHEN 325 MG/TAB PO PRN (22:05)
[2024-08-30] MEDS ORDERED: ZINC50 M1 PO (22:05)
[2024-08-30] MEDS ORDERED: CENTRUM SILVER PO (22:05)
[2024-08-30] MEDS ORDERED: QC ALLERGY10 MG PO (22:06)
[2024-08-30] MEDS ORDERED: PLAVIX75 MG PO (22:07)
[2024-08-30] MEDS ORDERED: DICYCLOMINE HYD10 MG PO (22:08)
[2024-08-30] MEDS ORDERED: COMPAZINE10 MG PO (22:09)
[2024-08-30] MEDS ORDERED: Zaleplon 5 MG/CAP PO PRN (22:10)
[2024-08-30] MEDS ORDERED: MAGNESIUM HYDROXIDE 30 ML UDC PO PRN (22:10)
--- NOTE | 2024-08-30 22:20 | NUR ---
PATIENT TO BE UPGRADED TO ICU, PATIENT DOES NOT HAVE HER CPAP, FAMILY UNABLE TO GO HOME FOR IT.
[2024-08-30] MEDS ORDERED: IPRATROPIUM-Albuterol 0.5MG-2.5MG/3 ML IN SCH (23:00)
[2024-08-30] MEDS ORDERED: DOXYCYCLINE HYCLATE 100 MG in SODIUM CHLORIDE 0.9% 100 ML IV SCH (23:00)
--- NOTE | 2024-08-30 23:12 | NUR ---
REPORT GIVEN TO Joan SHIELDS RN.
--- NOTE | 2024-08-30 23:40 | NUR ---
PATIENT TRASNPORTED TO ICU BED 3. CARE HANDED OFF TO Joan SHIELDS RN.
--- NOTE | 2024-08-30 23:40 | NUR ---
PT RECD VIA BEDSIDE TXR ON STRETCHER FROM ED ACCOMPANIED BY ED RN. PT IS AWAKE, ALERT AND CAN ANSWER QUESTIONS - DEMONSTRATES DELAYED VERBAL RESPONSES AND INTERMITTENT DISORIENTATION. ADMISSION ASSMT COMPLETED. SACRUM/COCCYX ASSESSED; APPEARS VERY VERY LIGHT PINK (+) BLANCHABLE, NO OPEN AREAS OR INDICATION OF DTI - OFFLOADED AT THE HIPS PREVENTATIVELY. BILATERAL HEELS INTACT WITH NO BOGGINESS/REDDENING OR INDICATION OF DTI PRESENT. ESTABLISHED AT THIS TIME PT IS ALERT AND ORIENTED TO SELF/PLACE CYCLING WITH A/OX4 AT TIMES. #22G LFA (+) PATENT, (+) FLUSHES WITHOUT COMPLICATION HOWEVER PT C/O NOT LIKING THE FEELING - REPORTS MILD STINGING - NO S/S OF INFILTRATION OR EXTRAVASATION. ALLOWED PT TO DECIDE IF SHE WANTED TO TRY ANOTHER IV INSERTION OR REDUCE INFUSION RATE TO TOLERABILITY D/T REQUIRING MULTIPLE STICKS TO OBTAIN CURRENT SITE. PT REQUESTED REDUCED INFUSION RATE. IV ABT INFUSING BENEATH GUARDRAIL FOR SEPSIS PROTOCOL, IV FLUIDS REQUIRE SIGNIFICANT REDUCTION FROM 125ML/HR TO 50ML/HR AT THIS TIME. PT STATES SHE IS AT HER LEVEL OF TOLERABILITY. PT PRESENTS SR WITH PVCS ON CARDIAC MONITORING. BP STABLE, VSS. PLAN TO INITIATE BIPAP. ORIENTED TO ROOM, CALL LIGHT AND PROCEDURES, FALL PRECAUTIONS IN PLACE. BED ALARM ENGAGED FOR SAFETY
[2024-08-30 23:46] VITALS: BP 161/74
[2024-08-31] VITALS (43 sets, daily range): BP systolic 121–191; BP diastolic 55–107
--- NOTE | 2024-08-31 00:45 | NUR ---
PT ASSMT COMPLETED. MED REC COMPLETED AND REVIEWED. IVF INITIATED WITH REDUCED RATE TO PT TOLERANCE. RESPIRATORY NOTIFIED PT IS READY AND AWAITING PLACEMENT ON BIPAP. RESPIRATORY INITIATED BIPAP /@28% RR 16. PT TOLERATING WELL. PLACED PUREWICK FOR INCONTINENCE COMFORT. RESTING WELL WITH NO SIGNS OF DISTRESS/COMPLICATIONS, NOT CURRENTLY DEMONSTRATING RESPIRATORY LABORED EFFORT. BED IN LOW POSITION FALL PRECAUTIONS IN PLACE BED ALARM ENGAGED
--- NOTE | 2024-08-31 01:48 | NUR ---
PT IS OBSERVED SLEEPING COMFORTABLY WITHOUT LABORED RESPIRATORY EFFORT ON BIPAP /@28% RR 16 VSS, NO SIGN OF DISTRESS NOTED. FALL PRECAUTIONS REMAIN IN PLACE WITH BED ALARM ENGAGED FOR SAFETY
--- NOTE | 2024-08-31 03:30 | NUR ---
PT OBSERVED RESTING COMFORTABLY WITH NO COMPLAINTS AND NO EVIDENCE OF DISTRESS. CALL LIGHT WITHIN REACH. BED ALARM ENGAGED.
--- NOTE | 2024-08-31 05:18 | NUR ---
VSS. PT CONTINUES TO REMAIN STABLE ON BIPAP 06/04@28% RR 16 WITH NO SIGN OF DISTRESS NOTED. BED ALARM REMAINS IN PLACE FOR SAFETY. CALL LIGHT WITHIN REACH
[2024-08-31 05:55] LABS: BASO% 0.2 % (0-3); EOS% 0.1 % (0-8); HEMATOCRIT 31.1 % (37.0-47.0); HEMOGLOBIN 9.7 g/dl (12.0-16.0); IMMATURE GRANULOCYTES 0.3 % (0.0-5.0); LYMPH% 4.3 % (15-41); MEAN CELL VOLUME 95.7 fL CALC (80.0-100.0); MEAN CORPUSCULAR HGB 29.8 pG CALC (26.0-32.0); MEAN CORPUSCULAR HGB CONC 31.2 g/dL CAL (32.0-36.0); MONO% 0.7 % (2-13); NEUT# 14.34 thou/uL (2.00-7.15); NEUT% 94.4 % (42-76); RED BLOOD COUNT 3.25 mill/uL (4.20-5.60); RED CELL DISTRI WIDTH 14.4 % (11.5-15.5)
--- NOTE | 2024-08-31 06:05 | NUR ---
PT CONTINUES TO REMAIN STABLE RESTING COMFORTABLY WITH CALL LIGHT WITHIN REACH
[2024-08-31 06:07] LABS: ALBUMIN 3.1 g/dL (3.2-5.0); BILIRUBIN, TOTAL 0.6 mg/dL (0.02-1.3); CREATININE 0.6 mg/dL (0.5-1.0); POTASSIUM 3.3 mmol/l (3.5-5.1); TOTAL PROTEIN 5.4 g/dL (6.3-8.2)
--- NOTE | 2024-08-31 08:00 | NUR ---
REPORT RECEIVED FROM NIGHT NURSE. PT ADMITTED FOR COPD EXACERBATION. ABG NORMAL. PT IS A/O TO PPT. PT CONFIRMED DNR STATUS AND WANTS TO DISCUSS HOSPICE WHEN HER SON ARRIVES. DR. ACUÑA WAS AT BEDSIDE TO ASSESS PT THIS MORNING. PT DECLINED COMING OFF OF BIPAP AT FIRST, BUT EVENTUALLY PLACED ON 2LNC. LUNG SOUNDS CLEAR. NO COUGH NOTED. PT APPEARS TO HAVE ANXIETY REGARDING OXYGEN USE AND BREATHING; PT REASSURED ABOUT MONITORING. BS ACTIVE; ABDOMEN SOFT NON-TENDER. PULSES STRONG UPPER, WEAK LOWER EXTREMETIES. SKIN W/D/I. SCAB NOTED ON L ARM. SKIN VERY DRY. AFEBRILE. EXISTING IV WAS LEAKING AND SO REMOVED. NEW IV STARTED IN R HAND WITHOUT DIFFICULTY. CALL LIGHT IN REACH. VSS.
[2024-08-31] MEDS ORDERED: DOXYCYCLINE HYCLATE 100 MG in SODIUM CHLORIDE 0.9% 100 ML IV SCH (09:00)
--- NOTE | 2024-08-31 09:52 | NUR ---
PT HAD INCONTINENT VOID. CLEANED AND REPOSITIONED. PER PT REQUEST, PLACED BACK ON BIPAP TO TAKE NAP.
--- NOTE | 2024-08-31 11:30 | NUR ---
NO CHANGES TO PT STATUS. AGREEABLE TO COME OFF OF BIPAP TO EAT LUNCH. REPOSITIONED IN BED. CALL LIGHT IN REACH. VSS.
[2024-08-31] MEDS ORDERED: DEXTROSE 50% 50 ML/SYR IV PRN (12:20)
[2024-08-31] MEDS ORDERED: DEXTROSE 250 ML IV PRN (12:20)
[2024-08-31] MEDS ORDERED: CLOPIDOGREL BISULFATE 75 MG/TAB TAB PO SCH (12:30)
[2024-08-31] MEDS ORDERED: PANTOPRAZOLE SODIUM Sesquihydr 40 MG/TAB PO SCH (12:30)
[2024-08-31] MEDS ORDERED: ESCITALOPRAM 10 MG/TAB PO SCH (12:30)
[2024-08-31] MEDS ORDERED: ALPRAZolam 0.5 MG/TAB PO SCH (12:30)
[2024-08-31] MEDS ORDERED: dilTIAZem HCl EXTENDED RELEASE 120 MG CAP PO SCH (12:30)
--- NOTE | 2024-08-31 12:30 | NUR ---
DR. ACUÑA AT BEDSIDE TO SEE PT.
[2024-08-31] MEDS ORDERED: methylPREDNISolone Sod Succ 40 MG/ML SDV IV SCH (14:00)
--- NOTE | 2024-08-31 14:00 | NUR ---
NO CHANGES TO PT STATUS. ASLEEP IN BED. BIPAP ON. CALL LIGHT IN REACH. VSS.
[2024-08-31] MEDS ORDERED: IPRATROPIUM-Albuterol 0.5MG-2.5MG/3 ML NEB SCH (15:00)
--- NOTE | 2024-08-31 16:00 | NUR ---
NO CHANGES TO PT STATUS. LYING IN BED. FAMILY AT BEDSIDE. REMAINS ON 2LNC AND TOLERATING WELL. DENIES ANY NEEDS AT THIS TIME. CALL LIGHT IN REACH. VSS.
[2024-08-31] MEDS ORDERED: INSULIN LISPRO 100 UNITS/ML ML SC SCH (17:00)
[2024-08-31] MEDS ORDERED: POTASSIUM CHLORIDE 20 MEQ/TAB PO ONE (17:10)
--- NOTE | 2024-08-31 18:00 | NUR ---
PT HAD INCONTINENT VOID AND BM. CLEANED AND REPOSITIONED. GIVEN DINNER TRAY. CALL LIGHT IN REACH. VSS.
[2024-08-31] MEDS ORDERED: ONDANSETRON HCl 4 MG/2 ML SDV IV PRN (18:40)
--- NOTE | 2024-08-31 19:00 | NUR ---
RECD PT FROM DAY SHIFT RN VIA BSSR. PT CURRENTLY C/O NAUSEA AND IS SEEN SITTING UP SHAKING LEGS WRETCHING INTO EMESIS BAG. DAY SHIFT NURSE ADMINISTERED ZOFRAN IV PER MD ORDER. FALL PRECAUTIONS IN PLACE - ASIDE FROM N/V PT REMAINS STABLE WITH NO CHANGES NOTED.
[2024-08-31] MEDS ORDERED: PROMETHAZINE HCL 25 MG/ML AMP IV PRN (19:20)
[2024-08-31] MEDS ORDERED: MORPHINE SULFATE 4 MG/ML VIAL IV PRN (19:30)
--- NOTE | 2024-08-31 19:45 | NUR ---
CALLED DR CAZARES AT 1915 D/T PT PERSISTING WITH VIOLENT PROJECTILE VOMITING SUGGESTIVE OF DETOX. PT TAKES MORPHINE AT HOME ROUTINELY AND HAS NOT RECEIVED IN SEVERAL HOURS. REMOVED ZOFRAN INITIALLY INTENDING TO REPEAT, BUT RN REQUESTED PHENERGAN TO REDUCE LIKELIHOOD OF QT PROLONGATION WITH IV ZOFRAN USE. ZOFRAN WASTED AND ORDER FOR PHENERGAN 12.5MG IV ENTERED AND ADMINISTERED PER MD ORDER WELL 2MG IV MORPHINE. PT ALMOST IMMEDIATELY HAD REDUCTION IN SYMPTOMS. REPOSITIONED AND OFFLOADED, BED IN LOW POSITION WITH BED ALARM ENGAGED AND CALL LIGHT IN REACH
[2024-08-31] MEDS ORDERED: FLECAINIDE ACETATE 50 MG TAB PO SCH (21:00)
--- NOTE | 2024-08-31 21:30 | NUR ---
PT ADMINISTERED NIGHT MEDICATIONS ROUTINE ORDERS. PLACED ON CPAP PER PT REQUEST. RESPIRATORY INITIATED. VSS. NO COMPLAINTS AT THIS TIME. NO ADDITIONAL EPISODES OF VOMITING, HOWEVER PT IS VERY THEATRICAL AND EXACERBATES HER OWN ANXIETY. MEDICATED WITH XANAX SCHEDULED PER ORDERS. FALL PRECAUTIONS IN PLACE. BED ALARM ENGAGED
[2024-08-31] MEDS ORDERED: hydrALAZINE HCL 20 MG/ML VIAL(1 ML) IV PRN (23:20)
[2024-09-01] VITALS (26 sets, daily range): BP systolic 27–203; BP diastolic 15–147
--- NOTE | 2024-09-01 00:48 | NUR ---
PT REQUIRES REPETITIVE REDIRECTION TO LAY BACK DOWN AND TRY TO SLEEP. CONTINUES TO SIT UP AND LOOK OUT THE DOOR INCREASINGLY DEMONSTRATING INCREASED ANXIETY. PT BEGAN TO WRETCH AND GAG INTO EMESIS BAG WITH NO VOMITUS OR EMESIS NOTED, REQUIRED EDUCATION AND REDIRECTION NOT TO AGGRAVATE GAG REFLEX OR INDUCE A VOMITING EPISODE. REDIRECTED AND REPOSITIONED. VSS AFTER CALLING MD FOR PRN ORDER FOR HTN SBP > 180 - GAVE ORDER FOR HYDRALAZINE IVP 10MG FOR SBP > 160. ADMINISTERED ORDERED, BP IS SLOWLY FALLING. BED IN LOW POSITION WITH FALL PRECAUTIONS IN PLACE
--- NOTE | 2024-09-01 01:50 | NUR ---
PT BLOOD PRESSURE REMAINS SBP>170 DESPITE ADMINISTRATION OF HYDRALAZINE 10MG IVP AT 2330. ATTEMPTING TO ADMINISTER ANOTHER PRN DOSE OF MORPHINE TO R/O PAIN A CONTRIBUTOR PRIOR TO CONTACTING MD. ADMINISTERED 2MG IVP MORPHINE PER ORDER AWAITING EFFECT IF ANY.
--- NOTE | 2024-09-01 02:15 | NUR ---
CONTACTED RE PERSISTENTLY ELEVATED BP AFTER ADMINISTRATION OF XANAX FOR ANXIETY, MORPHINE FOR PAIN, HYDRALAZINE 10MG IVP X 1 DOSE. NO RESPIRATORY CHANGES NOTED, NO EDEMA PRESENT. HAS BEEN INCONTINENT OF URINE X 3 WITH APPRECIABLE VOLUME NOTED INDICATING OUTPUT (+). BP CUFF CHECKED AND VERIFIED. RECYCLING OF BP REVEALS PERSISTENT BPS OF 178/80-184/98 WITH VERY LITTLE EFFECT OF INTERVENTIONS. DR CONTACTED AT 0215AM. AWAITING RESPONSE.
--- NOTE | 2024-09-01 02:50 | NUR ---
AFTER NO ANSWER VIA TEXT (20MIN) CALLED DR CAZARES VIA PHONE AND DISCUSSED CURRENT CONDITION AND ASSESSMENT. ORDERED CARDIZEM 120 PO NOW. OFFERED SONATA TO PATIENT WELL, DESPITE TIME CURRENTLY, PATIENT HAS NOT SLEPT LAST NIGHT DAY SHIFT OR OF YET THIS SHIFT - MAY BE INDUCED FROM INABILITY TO SLEEP. PT REMAINS A.OX3-4 WITHOUT CHANGE IN MENTATION. PT NOTIFIED OF MEDICATION ORDERS, AGREEABLE AND RECEPTIVE. REMOVED FROM CPAP AT PT REQUEST PLACED BACK ON NC AT 3L.
[2024-09-01] MEDS ORDERED: dilTIAZem HCl EXTENDED RELEASE 120 MG CAP PO SCH (02:55)
--- NOTE | 2024-09-01 03:54 | NUR ---
BP RECHECK AND ASSMT OF MEDICATION - BP 174/59; ADMINISTERED HYDRALAZINE 10MG PER MD PRN ORDER. HR STABLE, PT APPEARS COMFORTABLE, NO COMPLAINTS WITH EYES CLOSED. CALL LIGHT IN REACH
--- NOTE | 2024-09-01 04:15 | NUR ---
RECYCLING OF BP POST ADMINISTRATION OF ANOTHER 10MG IVP HYDRALAZINE PER MD ORDER: 169/97. PT IS OBSERVED SLEEPING - ALBEIT VERY LIGHTLY, DEMONSTRATES CALMER MANNERISMS - REDUCTION IN LEG SHAKING AND HYPERMOBILITY/RESTLESSNESS. ASIDE FROM OBVIOUS BP ELEVATION - OTHER VS REMAIN STABLE, NO ADDITIONAL EPISODES OF VOMITING. NO SIGN OF DISTRESS NOTED. RESTING CALMLY WITH FALL PRECAUTIONS IN PLACE.
--- NOTE | 2024-09-01 05:04 | NUR ---
REASSESSMENT OF BP SHOW SBP'S 144-159 DBP 70-80, RESTING CALMLY WITH NO SIGN OF DISTRESS CALL LIGHT WITHIN REACH
[2024-09-01 05:51] LABS: HEMATOCRIT 29.2 % (37.0-47.0); HEMOGLOBIN 9.1 g/dl (12.0-16.0); MEAN CELL VOLUME 97.3 fL CALC (80.0-100.0); MEAN CORPUSCULAR HGB 30.3 pG CALC (26.0-32.0); MEAN CORPUSCULAR HGB CONC 31.2 g/dL CAL (32.0-36.0); RED CELL DISTRI WIDTH 14.6 % (11.5-15.5)
--- NOTE | 2024-09-01 06:04 | NUR ---
COMPLETE BED CHANGE D/T INCONTINENCE OF URINE & BM. BP SBP 150 NOTIFIED MD OF CURRENT CONDITION AND RESULTS OF MEDICATION INTERVENTIONS FOR BP. REMAINS STABLE WITH NO SIGN OF DISTRESS AND CALL LIGHT WITHIN REACH
[2024-09-01 06:06] LABS: ALBUMIN 3.2 g/dL (3.2-5.0); BILIRUBIN, TOTAL 0.4 mg/dL (0.02-1.3); CREATININE 0.5 mg/dL (0.5-1.0); MAGNESIUM 1.8 mg/dL (1.6-2.3); POTASSIUM 3.4 mmol/l (3.5-5.1); TOTAL PROTEIN 5.5 g/dL (6.3-8.2)
--- NOTE | 2024-09-01 08:24 | NUR ---
PT SITTING UP IN BED, VITAL SIGNS STABLE, APPEARS TO BE ALERT TO SELF ONLY. WATCHED PT SPILL GLASS OF WATER ON BEDSHEETS AND THEN SHE SAID THE CEILING WAS LEAKING. NO COMPLAINTS OF PAIN OR DISTRESS NOTED AT THIS TIME. CHANGED PTS GOWN AND WILL CONTINUE TO MONITER
[2024-09-01] MEDS ORDERED: POTASSIUM CHLORIDE 20 MEQ/TAB PO SCH (08:30)
--- NOTE | 2024-09-01 11:39 | NUR ---
PT UP TO CHAIR, STATED IT HURT, HER BACK HURT, SHE WAS TRYIN TO GET UP, DEMANDING TO GO BACK TO BED. RETURNED PT TO BED PER REQUEST
--- NOTE | 2024-09-01 12:48 | NUR ---
LOST PT IV, AFTER NUMEROUS ATTEMPTS UNSUCCESSFUL OF NEW IV PLACEMENT, DR. ACUÑA NOTIFIED, AND HE STATES HE WILL CHANGE EVERYTHING OVER TO PILL FORM
[2024-09-01] MEDS ORDERED: Cefdinir 300 MG/CAP PO SCH (14:00)
--- NOTE | 2024-09-01 15:00 | NUR ---
REPORT GIVEN TO MED SURG SHONA FOR CONTINUATION OF CARE. PLACED A TELE BOX ON PT FOR TRANSFER TO MED SURG
[2024-09-01] MEDS ORDERED: predniSONE 20 MG/TAB PO SCH (17:30)
--- NOTE | 2024-09-01 20:00 | NUR ---
RECEIVED REPORT FROM NURSE SHONA, PATIENT RESTLESS, C/O PAIN BACK, AND CHEST PAIN, CURRENTLY GETTING BREATHING T, RT IN ROOM, STAT EKG ORDERED AND V/S OBTAINED, PATIENT HAS NO IV, PER JESSICA BEASLEY AWARE. PATIENT ON 2LPM VIA NC, SHALLOW BREATHING PATIENT ALERT TO NAME AND BIRTHDAY ONLY. CALL LIGHT IN REACHED, WILL NOTIFY MD OF CP.SAFETY PRECAUTION IN PLACED.
--- NOTE | 2024-09-01 20:30 | NUR ---
MD MADE AWARE OF PAIN, AND THAT UNABLE TO OBTAIN IV AT THIS TIME, PATIENT HAVING PAIN BACK AND CHEST, NEW ORDER MORPHINE BY MOUTH, ORDER SENT TO PHARMACY.
[2024-09-01] MEDS ORDERED: MORPHINE SULFATE 10 MG/5 ML UDC PO PRN (21:10)
--- NOTE | 2024-09-02 00:04 | NUR ---
PATIENT RESTING IN BED, PATIENT WEARING HOME CPAP MACHINE CONNECTED ON O2, LARGE INCONTINENCE OF BLADDER, CARE PROVIDED, CALL LIGHT IN REACHED. BED ALARM IN PLACED.
[2024-09-02 03:21] VITALS: BP 117/51
--- NOTE | 2024-09-02 03:22 | NUR ---
PATINET RESTING IN BED, EYES CLSOED, REMAINS ON HOME CPAP BREATHING UNLABORED, DENIES PAIN AT THIS TIME, CALL LIGHT IN REACHED, SAFETY PRECAUTION IN PLACED.
--- NOTE | 2024-09-02 06:00 | NUR ---
PATIENT'S HR 120'S-130'S PRN PO CARDIZEM GIVEN.
--- NOTE | 2024-09-02 06:41 | NUR ---
CALLED ED TELEMETRY READING ST 120'S-140'S, INFORNED THAT PRN CARDIZEM GIVEN.
[2024-09-02 07:00] VITALS: BP 121/74
--- NOTE | 2024-09-02 07:18 | NUR ---
MD AWARE HR 120'S -130'S, JILLIAN IS RESTING IN BED, CURRENTLY GETTING BREATHING TREATMENT. NEW ORDER TO DO STAT EKG.
--- NOTE | 2024-09-02 08:15 | NUR ---
PT IS FOUND RESTING IN BED. PT IS A&O X2; SINUS TACH ON TELE; 2L O2. PT STATES SHE HAS SOME BACK PAIN; WILL MEDICATE NEEDED. PT CAN MOVE ALL EXTREMITES; MAX X2 OOB. PLAN OF CARE WAS REVIEWED; NO FURTHER QUESTIONS AT THIS TIME. CALL LIGHT WITHIN REACH; BED ALARM IS ON.
[2024-09-02 11:19] VITALS: BP 128/64
--- NOTE | 2024-09-02 11:27 | NUR ---
PT'S CONDITION HAS REMAINED THE SAME. HOSPICE HAS REACHED OUT AND THEY ARE IN CONTACT WITH THE FAMILY. CALL LIGHT IS WITHIN REACH; BED ALARM IS ON.
[2024-09-02 14:59] VITALS: BP 125/61
--- NOTE | 2024-09-02 16:44 | NUR ---
PT'S CONDITION REMAINS THE SAME. PT IS STILL EXPERIENCING SOME PAIN; WILL MEDICATE NEEDED. SON IS AT BEDSIDE AND STATES SHE TAKES TRAMADOL AND MOPHINE PO AT HOME REGULARLY. HEAT PACKS ARE AT BEDSIDE. CALL LIGHT WITHIN REACH; BED ALARM IS ON. CONCRETE INSPECTOR IS TO ARRIVE AT 1730 FOR CONSULTATION.
[2024-09-02 18:30] VITALS: BP 102/50
[2024-09-02 19:01] VITALS: BP 102/50
--- NOTE | 2024-09-02 20:00 | NUR ---
RECEIVED REPORT FROM NURSE NAGEL, PATIENT WAS BEING DISCHARGE, SON IN ROOM, TELE OFF, HOSPICE NURSE DOING DISCHARGE PAER WORK, PATIENT ASSISTED BY WHEELCHAIR, JILLIAN ON O2 CONCERTRATOR, DISCHARGE AT 1940 ACOOMPANIED BY SON.
== END 2024-09-02 19:40 | disposition hospice, home (50) | DRG 189 ==
LOC: ED 19:31 → ED-I 21:46 → ED 22:03 → ICU 22:04 → MS2 09-01 15:15
PROVIDERS: Nurse Practitioner; Nurse Practitioner Family; ADMIT Internal Medicine; ATTEND Internal Medicine
PROC: 5A09357 Assistance with Respiratory Ventilation, Less than 24 Consecutive Hours, Continuous Positive Airway Pressure (ICD-10-PCS; principal; 2024-08-31)
DX: J96.21 Acute and chronic respiratory failure with hypoxia (principal); G93.41 Metabolic encephalopathy; E87.3 Alkalosis; Z99.11 Dependence on respirator [ventilator] status; R64 Cachexia; Z68.1 Body mass index [BMI] 19.9 or less, adult; J44.1 Chronic obstructive pulmonary disease with (acute) exacerbation; E11.9 Type 2 diabetes mellitus without complications; I10 Essential (primary) hypertension; I48.0 Paroxysmal atrial fibrillation; F03.90 Unspecified dementia, unspecified severity, without behavioral disturbance, psychotic disturbance, mood disturbance, and anxiety; I25.10 Atherosclerotic heart disease of native coronary artery without angina pectoris; G89.29 Other chronic pain; E78.5 Hyperlipidemia, unspecified; F41.9 Anxiety disorder, unspecified; I25.2 Old myocardial infarction; Z99.81 Dependence on supplemental oxygen; Z86.73 Personal history of transient ischemic attack (TIA), and cerebral infarction without residual deficits; Z87.891 Personal history of nicotine dependence; Z66 Do not resuscitate; Z79.891 Long term (current) use of opiate analgesic; Z51.5 Encounter for palliative care
CPT/HCPCS: J0360; J1650; J1815; J2405; J2550